=== PATIENT | male | born 1955 | race Caucasian/White ===

== ENCOUNTER 2019-12-12 20:38 | Emergency (ER) | payer OTHER, SELFPAY ==
[2019-12-12 20:41] VITALS: BP 153/80; PULSE 76; RESP 20; TEMP 36.4; O2SAT 93
--- NOTE | 2019-12-12 21:06 | ED_ITS ---
HPI - Extremity Problem General: Chief complaint: Extremity Injury, Upper Stated complaint: left arm injury Time Seen by Provider: 12/12/19 21:01 History of Present Illness: HPI Narrative: Patient is a 64-year-old male who comes to the ED with laceration to left forearm. Injury occurred just prior to arrival. Patient is currently on Xarelto. He was [place] in the [place] and a tree branch fell hitting his left forearm. It caused a laceration to the middle of left forearm. He applied pressure with a towel and was able to get bleeding to stop. He has full range of motion with his left shoulder, elbow wrist and fingers. He does describe having some pain when moving his fingers. Patient said his pain is manageable and does not want any pain meds while here in the ED. His last tetanus shot was within the past 5 years. Associated symptoms: Deny chest pain, fever(s) or rash Review of Systems Const: Denies: fever(s), chills or fatigue Eyes: Denies: change in vision or eye discomfort ENMT: Denies: throat pain, odynophagia, nasal discharge or nasal congestion Card: Denies: chest pain, palpitations, edema, swelling of feet/ankles, dyspnea on exertion or orthopnea Resp: Denies: dyspnea, productive cough or non-productive cough GI: Denies: abdominal pain, nausea, vomiting, diarrhea, constipation or hematochezia : Denies: flank pain, difficulty urinating, dysuria or hematuria Musc: Denies: neck pain, back pain or extremity swelling Skin/Breast: Reports: new lesions (laceration to left forearm); Denies: rash Neuro: Denies: headache(s), numbness in extremities or weakness in extremities Physical Exam Const: COMMON NORMALS: no acute distress, patient oriented x3, healthy appearing and alert GENERAL APPEARANCE: cooperative and comfortable HENMT: COMMON NORMALS: normocephalic HEAD & SCALP: normocephalic MOUTH: Normal oral and palatal mucosa present THROAT: posterior oropharynx normal and uvula midline Neck/C-Spine: COMMON NORMALS: supple GENERAL: Yes normal visual inspection Resp: COMMON NORMALS: normal respiratory effort, No retractions, No use of accessory muscles and clear to auscultation bilaterally AUSCULTATION: clear to auscultation bilaterally Cardio: COMMON NORMALS: regular rate, regular rhythm, S1 normal heart sound present, S2 normal heart sound present, No gallops present (Cardio), No clicks present (Cardio), No murmurs present (Cardio) and Peripheral pulses 2+ throughout RATE: regular rate RHYTHM: regular rhythm HEART SOUNDS: S1 normal heart sound present and S2 normal heart sound present PERIPHERAL PULSES: Peripheral pulses 2+ throughout GI: COMMON NORMALS: Normal to inspection, nondistended, normoactive bowel sounds present, Soft to palpation, non-tender and no masses PALPATION: Yes Soft to palpation : COMMON NORMALS: Yes no CVA tenderness BLADDER/KIDNEY EXAM: Yes no CVA tenderness Back/Pelvis: COMMON NORMALS: no CVA tenderness Extremity: COMMON NORMALS: full ROM GENERAL: Yes normal exam except as noted LEFT UPPER EXTREMITY: Yes lower arm Left lower arm: Yes inspection (Patient has a 3 cm V shaped laceration along with an abrasion on the dorsal aspect of the left forearm. No current bleeding seen), Yes palpation (Tender over laceration site.) and Yes neurovascular exam (Intact) Neuro: COMMON NORMALS: patient oriented x3 and moves all extremities SENSORIUM/ORIENTATION: Yes alert Skin: GENERAL SKIN EXAM: dry skin TRAUMA: laceration (3 cm V-shaped laceration with small superficial abrasion near laceration as well.) superficial, involves subcutaneous tissue, motor nerve function intact and sensation intact; not actively bleeding Procedures Laceration Laceration 1: Site: upper extremity (forearm) Side (If applicable): left Size (cm): 3 Description: irregular (V-shaped) and clean Depth: simple, single layer Local Anesthetic: lidocaine 1% and with epi Amount of anesthesia used (mL): 10 Pre-repair: wound explored (No foreign bodies or wood chips seen in laceration site.) and irrigated extensively (With normal saline and cleaned with CHG.) Skin layer closed with: nylon Size (cm): 4-0 Number of sutures: 7 Technique: simple, interrupted Course Reevaluation(s): Reevaluation #1: I discussed the x-ray findings with patient and told him about the radiopaque object in the forearm. Patient states that is a piece of glass and he has had that in his left forearm for years. He states that it does not cause him any problems. Time: 22:21 Vital Signs: Vital signs: Vital Signs Temperature 97.5 F L 07/29/20 20:41 Pulse Rate 60 12/12/19 22:54 Respiratory Rate 18 12/12/19 22:54 Blood Pressure 137/76 12/12/19 22:54 Pulse Oximetry 93 12/12/19 22:54 MDM - Extremity (Nontraumatic) MDM Narrative: Medical decision making narrative: Patient is a 64-year-old male who comes to the ED with a laceration to his left forearm. Exam showed 3 cm V shaped laceration on the left forearm. X-ray of left forearm showed no acute fractures, but did identify a small radiopaque object in the patient's forearm that was not near the laceration site. I told patient about findings of a foreign body seen he told me that he was aware of that and it is a piece of glass that has been in there for years. Laceration was irrigated extensively with normal saline and then lidocaine 1% with epi was used as a local. Laceration was then closed with 7 sutures (see procedure notes for details). Patient was given prescription for cephalexin for prophylactic. Follow-up with healthcare provider in 7 to 10 days to get sutures removed. Keep laceration site dry and bandage for the next 48 hours then clean and change bandage daily after that. I discussed infection signs at the laceration site with patient. Return to ED precautions given. Imaging Data^: Xray Ortho: Attestation: I personally reviewed and interpreted this imaging study as follows: My impression: Left forearm x-ray showed no acute fractures. There is a small radiopaque object on anterior side of the forearm but not located near laceration site. Possibly old foreign body related to recent injury. Discharge Plan Discharge Patient Disposition: Home Clinical Impression: Laceration Condition: Stable Prescriptions: New cephalexin 500 mg capsule 500 mg PO TID 4 Days Qty: 12 RF: 0 Discharge Orders: Discharge Order (Routine); Ordered 12/12/19 Ordered By: Stefano Garnett Referrals: Jay Cintron [Primary Care Provider] - Discharge Diet: Regular Discharge Activity: Increase activity as tolerated and Limit activity as instructed Patient Instructions: Suture Care (ED), Laceration (ED) Activity Restrictions/Additional Instructions: Take full course of antibiotics as prescribed. Keep laceration site clean and dry for the next 48 hours. Then after that you can clean and re-bandage daily. Watch for signs of infection such as redness, warmth, increased tenderness and puslike drainage. If you see the signs of infection return to the ED, urgent care or PCP for reevaluation. call your PCP to schedule a follow-up appointment for reevaluation in the next 7 to 10 days and to get sutures removed. Continue taking all home meds. Follow discharge plans as discussed. You can return to the ED if symptoms worsen. Discharge Date/Time: 12/12/19 23:02 Coding Level of Care Code ED Supervisor [employer] for Sylwia Bryson Exam Comprehensive
--- NOTE | 2019-12-12 21:14 | XRR_ITS ---
PROCEDURE INFORMATION: Exam: XR Left Forearm Exam date and time: 12/12/2019 9:39 PM Age: 64 years old Clinical indication: Injury or trauma; Injury history: Not specified; Initial encounter; Laceration; Arm, lower; Left; Additional info: Injury with laceration TECHNIQUE: Imaging protocol: XR Left forearm. Views: 2 views. COMPARISON: CT Up Extremity w LEFT [id number] 06/30/2018 3:08 PM FINDINGS: Bones/joints: No fracture. No dislocation. Soft tissues: There is a superficial soft tissue injury involving the dorsal/lateral mid forearm compatible with the history of a laceration. There is a 3 mm metallic foreign body in the more distal medial forearm which may be unrelated to the current injury and could be pre-existing. XR/XR forearm LT 2V [id number] IMPRESSION: 1. Soft tissue injury without osseous injury. 2. Radiopaque foreign body in the forearm soft tissue, potentially unrelated to the current injury.
--- NOTE | 2019-12-12 22:53 | PC.NURSE ---
BANDAGED LEFT ARM WITH TELFA AND 4X4'S WRAPPED WITH CHELSIE.
[2019-12-12 22:54] VITALS: BP 137/76; PULSE 60; RESP 18; O2SAT 93
[2019-12-12] MEDS: cephALEXin 500 mg Capsule PO (22:54)
== END 2019-12-12 23:02 | disposition home or self-care (01) ==
PROVIDERS: Emergency Provider Physician Assistant; PCP Family Medicine
DX: S51.812A Laceration without foreign body of left forearm, initial encounter (principal); W20.8XXA Other cause of strike by thrown, projected or falling object, initial encounter
CPT/HCPCS: 12002; 12345; 73090; 99281; 99283

== ENCOUNTER → 2019-12-28 14:19 | Outpatient (BNVA) | payer OTHER, SELFPAY | PROVIDERS: PCP Family Medicine; Visit Provider Nurse Practitioner | DX: R06.02 Shortness of breath (principal); J44.1 Chronic obstructive pulmonary disease with (acute) exacerbation; Z68.33 Body mass index [BMI] 33.0-33.9, adult; F17.211 Nicotine dependence, cigarettes, in remission; I51.7 Cardiomegaly; Z95.0 Presence of cardiac pacemaker | CPT/HCPCS: 71046 ==

== ENCOUNTER → 2020-01-03 14:00 | Outpatient (BNVA) | payer OTHER, SELFPAY | PROVIDERS: PCP Family Medicine; Visit Provider Nurse Practitioner Family | DX: Z11.59 Encounter for screening for other viral diseases (principal); J18.9 Pneumonia, unspecified organism; R06.02 Shortness of breath | CPT/HCPCS: 87635 ==

== ENCOUNTER 2020-07-18 13:17 | Outpatient (CLI) | payer OTHER, SELFPAY | END 2020-07-18 13:18 | disposition home or self-care (01) | LOC: WOUND 13:20 | PROVIDERS: PCP Family Medicine; Visit Provider Surgery | DX: E11.621 Type 2 diabetes mellitus with foot ulcer (principal); L97.522 Non-pressure chronic ulcer of other part of left foot with fat layer exposed | CPT/HCPCS: 11042; G0463; L3260 ==

== ENCOUNTER 2020-07-25 14:12 | Outpatient (CLI) | payer OTHER, SELFPAY | END 2020-07-25 14:13 | disposition home or self-care (01) | LOC: WOUND 14:13 | PROVIDERS: PCP Family Medicine; Visit Provider Surgery | DX: E11.621 Type 2 diabetes mellitus with foot ulcer (principal); L97.522 Non-pressure chronic ulcer of other part of left foot with fat layer exposed | CPT/HCPCS: 11042 ==

== ENCOUNTER 2020-07-25 15:30 | Outpatient (CLI) | payer OTHER, SELFPAY ==
--- NOTE | 2020-07-25 15:44 | XRR_ITS ---
PROCEDURE INFORMATION: Exam: XR Right Foot Exam date and time: 07/25/2020 3:45 PM Age: 64 years old Clinical indication: Condition or disease; Other: Right foot ulcer TECHNIQUE: Imaging protocol: XR Right foot. Views: 3 or more views. COMPARISON: No relevant prior studies available. FINDINGS: Bones/joints: Mild degenerative changes of the midfoot. No fracture or other acute osseous abnormality. Soft tissues: The soft tissues appear unremarkable. 10 mm linear wound dressing versus foreign body in the plantar soft tissues of the distal forefoot. This is demonstrated on the lateral image. No abnormal air in the soft tissues. XR/XR foot RT min 3V* [id number] IMPRESSION: 1. 10 mm linear wound dressing versus foreign body in the plantar soft tissues of the distal forefoot. This is demonstrated on the lateral image. 2. No acute osseous abnormality. No radiographic evidence of osteomyelitis.
== END 2020-07-25 15:31 | disposition home or self-care (01) ==
PROVIDERS: PCP Family Medicine; Visit Provider Surgery
DX: E11.621 Type 2 diabetes mellitus with foot ulcer (principal)
CPT/HCPCS: 73630

== ENCOUNTER 2020-08-01 08:03 | Outpatient (CLI) | payer OTHER, SELFPAY | END 2020-08-01 08:04 | disposition home or self-care (01) | LOC: WOUND 08:03 | PROVIDERS: PCP Family Medicine; Visit Provider Nurse Practitioner Family | DX: E11.621 Type 2 diabetes mellitus with foot ulcer (principal); L97.522 Non-pressure chronic ulcer of other part of left foot with fat layer exposed | CPT/HCPCS: 11042 ==

== ENCOUNTER 2020-08-07 08:47 | Outpatient (CLI) | payer OTHER, SELFPAY ==
--- NOTE | 2020-08-07 08:58 | USCV_ITS ---
Arnie Coombs Age: 65 Gender: M : 1955 Exam Date: 08/07/2020 09:06 Ordering Phys: Jay Real MD (Andy) ([email or web address]) Technologist: Charles Zapien Exam Location: [facility] [place] Indication: HISTORY: Lower extremity edema. PROCEDURES: Bilateral duplex Venous Insufficiency study of the Deep and Superficial systems was carried out according to normal protocol with the patient in supine positon for deep system and dependent position for the superficial system. FINDINGS: All deep veins demonstrated compressibility without evidence of intraluminal thrombus or increased echogenicity. Spectral analysis of Doppler signals demonstrates normal response to compression maneuvers indicating patency without obstruction. Reflux determinations were made with the patient in the dependent position, the weight being on the contralateral leg. Vein measurements and reflux times are listed below were applicable. No notable reflux was seen at this time. CONCLUSIONS No evidence of DVT in the above-mentioned identifiable veins. No significant venous reflux in the above-mentioned veins. The veins were of normal caliber bilaterally. Dr Siomara Laureano MD [facility] (Electronically Signed) Final Date: 08 August 2020 19:05 S
--- NOTE | 2020-08-07 08:58 | XR_ITS ---
WS: [id number] Exam: XR foot RT min 3V* [id number] Date/Time of Exam: 08/07/2020 8:58 AM Reason For Exam: TYPE 2 DM W/FOOT ULCER Comparison 07/25/2020. There is soft tissue edema of the great toe with skin ulcer seen along the plantar aspect. No bone de struction. No fracture of the right foot. No obvious soft tissue foreign bodies are seen. Minimal deg enerative changes. XR/XR foot RT min 3V* [id number] IMPRESSION: 1. No fracture or bone destruction. 2. Soft tissue edema of the great toe with skin ulcer seen along the plantar stovall rface of the great toe. No soft tissue gas seen.
== END 2020-08-07 08:48 | disposition home or self-care (01) ==
LOC: RAD 08:47
PROVIDERS: PCP Nurse Practitioner; Visit Provider Thoracic Surgery (Cardiothoracic Vascular Surgery)
DX: E11.621 Type 2 diabetes mellitus with foot ulcer (principal); R60.0 Localized edema
CPT/HCPCS: 73630; 93970

== ENCOUNTER 2020-08-08 08:04 | Outpatient (CLI) | payer OTHER, SELFPAY | END 2020-08-08 08:05 | disposition home or self-care (01) | LOC: WOUND 08:05 | PROVIDERS: PCP Nurse Practitioner; Visit Provider Surgery | DX: E11.621 Type 2 diabetes mellitus with foot ulcer (principal); L97.522 Non-pressure chronic ulcer of other part of left foot with fat layer exposed | CPT/HCPCS: 11042 ==

== ENCOUNTER 2020-08-13 14:34 | Outpatient (CLI) | payer OTHER, SELFPAY | END 2020-08-13 14:35 | disposition home or self-care (01) | LOC: WOUND 14:35 | PROVIDERS: PCP Nurse Practitioner; Visit Provider Thoracic Surgery (Cardiothoracic Vascular Surgery) | DX: E11.621 Type 2 diabetes mellitus with foot ulcer (principal); L97.522 Non-pressure chronic ulcer of other part of left foot with fat layer exposed | CPT/HCPCS: 11042 ==

== ENCOUNTER 2020-08-15 14:52 | Outpatient (CLI) | payer OTHER, SELFPAY | END 2020-08-15 14:53 | disposition home or self-care (01) | LOC: WOUND 14:53 | PROVIDERS: PCP Nurse Practitioner; Visit Provider Surgery | DX: E11.621 Type 2 diabetes mellitus with foot ulcer (principal); L97.522 Non-pressure chronic ulcer of other part of left foot with fat layer exposed | CPT/HCPCS: 29445 ==

== ENCOUNTER 2020-08-19 08:17 | Outpatient (CLI) | payer OTHER, SELFPAY ==
--- NOTE | 2020-08-19 08:57 | USCV_ITS ---
Arnie Coombs Age: 65 Gender: M : 1955 Exam Date: 08/19/2020 08:51 Ordering Phys: Jay Real MD (Andy) ([email or web address] Technologist: Kati Carlson Exam Location: [facility] [place] Indication: RIGHT TOE ULCER RIGHT LEFT Brachial 146.00 mmHg Brachial 147.00 mmHg Pressure (mmHg) Waveform Pressure (mmHg) Waveform 124.00 High Thigh 145.00 107.00 Below Knee 137.00 148.00 HEALTH CARE SPECIALIST 164.00 152.00 DPA 143.00 1.03 Ankle/Brachial Index 0.97 139.00 Pre-Exercise Toe Pressure 140.00 0.95 Pre-Exercise Toe/Brachial Index 0.95 FINDINGS Normal resting ABIs bilaterally Normal resting TBIs bilaterally Normal PVR waveforms bilaterally CONCLUSIONS No evidence of any significant arterial obstruction, based on the above findings. Dr Siomara Laureano MD [facility] (Electronically Signed) Final Date: 19 August 2020 20:18 S
== END 2020-08-19 08:18 | disposition home or self-care (01) ==
LOC: RAD 08:23
PROVIDERS: PCP Nurse Practitioner; Visit Provider Thoracic Surgery (Cardiothoracic Vascular Surgery)
DX: E11.621 Type 2 diabetes mellitus with foot ulcer (principal)
CPT/HCPCS: 93923

== ENCOUNTER 2020-08-19 10:17 | Outpatient (CLI) | payer OTHER, SELFPAY | END 2020-08-19 10:18 | disposition home or self-care (01) | LOC: WOUND 10:17 | PROVIDERS: PCP Nurse Practitioner; Visit Provider Thoracic Surgery (Cardiothoracic Vascular Surgery) | DX: E11.621 Type 2 diabetes mellitus with foot ulcer (principal); L97.522 Non-pressure chronic ulcer of other part of left foot with fat layer exposed | CPT/HCPCS: 11042 ==

== ENCOUNTER 2020-08-26 08:18 | Outpatient (CLI) | payer OTHER, SELFPAY | END 2020-08-26 08:19 | disposition home or self-care (01) | LOC: WOUND 08:19 | PROVIDERS: PCP Nurse Practitioner; Visit Provider Thoracic Surgery (Cardiothoracic Vascular Surgery) | DX: E11.621 Type 2 diabetes mellitus with foot ulcer (principal); L97.522 Non-pressure chronic ulcer of other part of left foot with fat layer exposed | CPT/HCPCS: 11042 ==

== ENCOUNTER 2020-09-02 09:12 | Outpatient (CLI) | payer OTHER, SELFPAY | END 2020-09-02 09:13 | disposition home or self-care (01) | LOC: WOUND 09:12 | PROVIDERS: PCP Nurse Practitioner; Visit Provider Thoracic Surgery (Cardiothoracic Vascular Surgery) | DX: E11.621 Type 2 diabetes mellitus with foot ulcer (principal); L97.522 Non-pressure chronic ulcer of other part of left foot with fat layer exposed | CPT/HCPCS: 11042 ==

== ENCOUNTER 2020-09-09 08:18 | Outpatient (CLI) | payer OTHER, SELFPAY | END 2020-09-09 08:19 | disposition home or self-care (01) | LOC: WOUND 08:20 | PROVIDERS: PCP Nurse Practitioner; Visit Provider Thoracic Surgery (Cardiothoracic Vascular Surgery) | DX: E11.621 Type 2 diabetes mellitus with foot ulcer (principal); L97.512 Non-pressure chronic ulcer of other part of right foot with fat layer exposed | CPT/HCPCS: 11042 ==

== ENCOUNTER 2020-09-16 08:16 | Outpatient (CLI) | payer OTHER, SELFPAY | END 2020-09-16 08:17 | disposition home or self-care (01) | LOC: WOUND 08:20 | PROVIDERS: PCP Nurse Practitioner; Visit Provider Thoracic Surgery (Cardiothoracic Vascular Surgery) | DX: E11.621 Type 2 diabetes mellitus with foot ulcer (principal); L97.519 Non-pressure chronic ulcer of other part of right foot with unspecified severity; L97.522 Non-pressure chronic ulcer of other part of left foot with fat layer exposed | CPT/HCPCS: 97597 ==

== ENCOUNTER 2020-09-23 07:52 | Outpatient (CLI) | payer OTHER, SELFPAY | END 2020-09-23 07:53 | disposition home or self-care (01) | LOC: WOUND 07:53 | PROVIDERS: PCP Nurse Practitioner; Visit Provider Thoracic Surgery (Cardiothoracic Vascular Surgery) | DX: E11.621 Type 2 diabetes mellitus with foot ulcer (principal); L97.522 Non-pressure chronic ulcer of other part of left foot with fat layer exposed | CPT/HCPCS: 11042 ==

== ENCOUNTER 2020-09-30 08:08 | Outpatient (CLI) | payer OTHER, SELFPAY | END 2020-09-30 08:09 | disposition home or self-care (01) | LOC: WOUND 08:09 | PROVIDERS: PCP Nurse Practitioner; Visit Provider Thoracic Surgery (Cardiothoracic Vascular Surgery) | DX: E11.621 Type 2 diabetes mellitus with foot ulcer (principal); L97.512 Non-pressure chronic ulcer of other part of right foot with fat layer exposed; L97.421 Non-pressure chronic ulcer of left heel and midfoot limited to breakdown of skin | CPT/HCPCS: 11042 ==

== ENCOUNTER 2020-10-03 07:47 | Outpatient (CLI) | payer OTHER, SELFPAY | END 2020-10-03 07:48 | disposition home or self-care (01) | LOC: WOUND 07:48 | PROVIDERS: PCP Nurse Practitioner; Visit Provider Thoracic Surgery (Cardiothoracic Vascular Surgery) | DX: E11.621 Type 2 diabetes mellitus with foot ulcer (principal); L97.512 Non-pressure chronic ulcer of other part of right foot with fat layer exposed; L97.521 Non-pressure chronic ulcer of other part of left foot limited to breakdown of skin | CPT/HCPCS: 11042; 97597 ==

== ENCOUNTER 2020-10-08 14:44 | Outpatient (CLI) | payer OTHER, SELFPAY | END 2020-10-08 14:45 | disposition home or self-care (01) | LOC: WOUND 14:45 | PROVIDERS: PCP Nurse Practitioner; Visit Provider Nurse Practitioner Family | DX: E11.621 Type 2 diabetes mellitus with foot ulcer (principal); L97.512 Non-pressure chronic ulcer of other part of right foot with fat layer exposed; L97.422 Non-pressure chronic ulcer of left heel and midfoot with fat layer exposed | CPT/HCPCS: 11042 ==

== ENCOUNTER 2020-10-15 08:01 | Outpatient (CLI) | payer OTHER, SELFPAY | END 2020-10-15 08:02 | disposition home or self-care (01) | LOC: WOUND 08:02 | PROVIDERS: PCP Nurse Practitioner; Visit Provider Thoracic Surgery (Cardiothoracic Vascular Surgery) | DX: E11.621 Type 2 diabetes mellitus with foot ulcer (principal); L97.512 Non-pressure chronic ulcer of other part of right foot with fat layer exposed | CPT/HCPCS: 11042; 87070; 87077; 87176; 87186; 87205 ==

== ENCOUNTER 2020-10-15 08:57 | Outpatient (CLI) | payer OTHER, SELFPAY ==
--- NOTE | 2020-10-15 09:22 | XR_ITS ---
WS: [id number] Right foot, 3 views, 10/15/2020 Clinical Data: TYPE II DM W/FOOT ULCER/? OSTEOMYELITIS Comparison: Right foot, 08/07/2020. Findings: No fractures or dislocations are seen. No bone destruction or erosion is noted. The joint spaces are normal. There is minimal soft tissue swelling over the medial aspect of the right first IP joint. The right great toe shows no erosion or evidence of osteomyelitis. There are clips in the medial dist al soft tissues of the leg. There is a small plantar spur. XR/XR foot RT min 3V* [id number] Impression: Negative right foot.
== END 2020-10-15 08:58 | disposition home or self-care (01) ==
PROVIDERS: PCP Nurse Practitioner; Visit Provider Thoracic Surgery (Cardiothoracic Vascular Surgery)
DX: E11.621 Type 2 diabetes mellitus with foot ulcer (principal)
CPT/HCPCS: 73630

== ENCOUNTER 2020-10-22 07:52 | Outpatient (CLI) | payer OTHER, SELFPAY | END 2020-10-22 07:53 | disposition home or self-care (01) | LOC: WOUND 07:52 | PROVIDERS: PCP Nurse Practitioner; Visit Provider Thoracic Surgery (Cardiothoracic Vascular Surgery) | DX: E11.621 Type 2 diabetes mellitus with foot ulcer (principal); L97.512 Non-pressure chronic ulcer of other part of right foot with fat layer exposed | CPT/HCPCS: 11042 ==

== ENCOUNTER 2020-10-29 07:53 | Outpatient (CLI) | payer OTHER, SELFPAY | END 2020-10-29 07:54 | disposition home or self-care (01) | LOC: WOUND 07:54 | PROVIDERS: PCP Nurse Practitioner; Visit Provider Thoracic Surgery (Cardiothoracic Vascular Surgery) | DX: E11.621 Type 2 diabetes mellitus with foot ulcer (principal); L97.512 Non-pressure chronic ulcer of other part of right foot with fat layer exposed | CPT/HCPCS: 11042 ==

== ENCOUNTER 2020-10-29 09:36 | Emergency (ER) | payer OTHER, SELFPAY ==
[2020-10-29 09:47] VITALS: BP 115/76; PULSE 64; RESP 18; TEMP 36.4; O2SAT 93; BMI 35.4
--- NOTE | 2020-10-29 10:12 | USCV_ITS ---
Arnie Coombs Age: 65 Gender: M : 1955 Exam Date: 10/29/2020 10:40 Ordering Phys: Stefano Garnett Technologist: Ilsa Mackay Exam Location: [facility] [place] Indication: lower extremity swelling HISTORY: Lower extremity swelling. PROCEDURES: Venous duplex imaging was performed in only the left lower extremity. The following venous structures were evaluated: common femoral vein, profunda vein, proximal portion of the greater saphenous vein, superficial femoral vein, and the popliteal vein. In addition, the posterior tibial and peroneal trunk were evaluated. FINDINGS: Normal 2-D Doppler and augmentation and compressibility throughout the lower extremity venous structures. Additional imaging through the proximal calf veins also reveals no thrombus. Limited evaluation of the greater saphenous vein is patent with no thrombus.. CONCLUSIONS No evidence of left lower extremity DVT. Rafael Azevedo MD (Electronically Signed) Final Date: 30 October 2020 09:48 S
--- NOTE | 2020-10-29 10:12 | W.ED.EXTPRO ---
HPI - Extremity Problem General: Chief complaint: Extremity Problem,Nontraumatic Stated complaint: L leg discolored, swollen, knot Time Seen by Provider: 10/29/20 09:55 History of Present Illness: HPI Narrative: Patient is a 65-year-old male comes to the ED with left lower extremity pain and swelling. Patient denies any known injury or trauma to cause pain and swelling. He has seen a provider twice for this complaint and he was diagnosed with cellulitis and first put on Bactrim and then was put on cephalexin. [facility]. Patient says he does take aspirin and Xarelto currently. He describes the leg pain is achy and he is able to walk on left leg with no increased pain. Denies any chest pain, shortness of breath, cough or hemoptysis. Associated symptoms: Reports rash (Erythema, tenderness to the left lower leg.); Deny chest pain or fever(s) Review of Systems Const: Denies: fever(s), chills or fatigue Eyes: Denies: change in vision or eye discomfort ENMT: Denies: throat pain, odynophagia, nasal discharge or nasal congestion Card: Denies: chest pain, palpitations, edema, swelling of feet/ankles, dyspnea on exertion or orthopnea Resp: Denies: dyspnea, productive cough or non-productive cough GI: Denies: abdominal pain, nausea, vomiting, diarrhea, constipation or hematochezia : Denies: flank pain, difficulty urinating, dysuria or hematuria Musc: Reports: extremity pain (Left lower extremity swelling and pain.); Denies: neck pain, back pain or extremity swelling Skin/Breast: Reports: rash (Erythema, tenderness to the left lower leg.); Denies: new lesions Neuro: Denies: headache(s), numbness in extremities or weakness in extremities PFS ED PFSH: Social History Smoking and tobacco status: former smoker Physical Exam Const: COMMON NORMALS: no acute distress, patient oriented x3 and alert GENERAL APPEARANCE: cooperative and comfortable HENMT: COMMON NORMALS: normocephalic HEAD & SCALP: normocephalic MOUTH: Normal oral and palatal mucosa present THROAT: posterior oropharynx normal and uvula midline Neck/C-Spine: COMMON NORMALS: supple GENERAL: Yes normal visual inspection Resp: COMMON NORMALS: normal respiratory effort, No retractions, No use of accessory muscles and clear to auscultation bilaterally AUSCULTATION: clear to auscultation bilaterally Cardio: COMMON NORMALS: regular rate, regular rhythm, S1 normal heart sound present, S2 normal heart sound present, No gallops present (Cardio), No clicks present (Cardio), No murmurs present (Cardio) and Peripheral pulses 2+ throughout RATE: regular rate RHYTHM: regular rhythm HEART SOUNDS: S1 normal heart sound present and S2 normal heart sound present PERIPHERAL PULSES: Peripheral pulses 2+ throughout GI: COMMON NORMALS: Normal to inspection, nondistended, normoactive bowel sounds present, Soft to palpation, non-tender and no masses PALPATION: Yes Soft to palpation : COMMON NORMALS: Yes no CVA tenderness BLADDER/KIDNEY EXAM: Yes no CVA tenderness Back/Pelvis: COMMON NORMALS: no CVA tenderness Extremity: NARRATIVE EXTREMITY EXAM: Patient is left lower extremity has mild swelling and erythema around the ankle and lower leg. Mild tenderness on palpation of the lower leg. Pedal pulse 2+. GENERAL: No calf tenderness Neuro: COMMON NORMALS: patient oriented x3 and moves all extremities SENSORIUM/ORIENTATION: Yes alert Skin: NARRATIVE SKIN EXAM: Left lower extremity?lower leg is an erythemic rash with some mild tenderness. No warmth upon palpation. GENERAL SKIN EXAM: dry skin Course Vital Signs: Vital signs: Vital Signs Temperature 97.6 F 10/29/20 09:47 Pulse Rate 64 10/29/20 11:33 Respiratory Rate 20 H 10/29/20 11:33 Blood Pressure 115/76 10/29/20 09:47 Pulse Oximetry 92 10/29/20 11:33 MDM - Extremity (Nontraumatic) MDM Narrative: Medical decision making narrative: Patient is 65-year-old male comes to the ED with left lower extremity swelling and pain. [facility]. He also has an erythemic rash on left lower leg with some mild tenderness. No calf tenderness. Denies any history of blood clots. Denies chest pain, hemoptysis, cough or shortness of breath. Ultrasound of left lower extremity showed no DVTs or blood clots. Patient was diagnosed with pain and swelling of left lower extremity discharged home. He was told to rest ice and elevate left leg. Patient was previously diagnosed with cellulitis on that leg and is currently taking cephalexin I told him to continue taking full course of medication. Return to ED precautions given. Follow-up with PCP in 7 to 10 days reevaluation. Patient understood agree with plan. Imaging Data^: US Vascular: Attestation: I personally reviewed and interpreted this imaging study as follows: Radiologist's impression: Ultrasound venous duplex of left lower extremity?prelim report?no DVTs or blood clots seen. Discharge Plan Discharge Patient Disposition: Home Clinical Impression: Pain and swelling of left lower extremity Condition: Stable Prescriptions: No Action Unable to Assess RF: 0 Discharge Orders: Discharge ED (Routine); Ordered 10/29/20 Ordered By: Stefano Garnett Referrals: Carmen Osman FNP [Primary Care Provider] - Discharge Diet: Regular Discharge Activity: Increase activity as tolerated Activity Restrictions/Additional Instructions: Follow-up with medical provider as directed in 7 to 10 days for reevaluation. Continue taking all home medications as prescribed. Rest, ice and elevate left leg and take [id number] Tylenol for pain. Return to the ER or your medical provider if condition worsens. Please read and understand discharge instructions. Thank you for choosing [facility] for your healthcare needs today. Please realize this is an emergency room and that we are providing you with a medical screening exam and this may not be complete and all inclusive of all the testing and or work up that you may need to determine your ailment or severity of your illness. It is very important that you follow up as instructed or that you return to the Emergency Department should you have concerns or if your condition changes or worsens in any way. Coding Level of Care Code ED Emergency Management System Director for Sylwia Bryson Exam Comprehensive
[2020-10-29 11:32] VITALS: PULSE 64; RESP 20; O2SAT 92
[2020-10-29 11:33] VITALS: PULSE 64; RESP 20; O2SAT 92
== END 2020-10-29 11:30 | disposition home or self-care (01) ==
PROVIDERS: Emergency Provider Physician Assistant; PCP Nurse Practitioner
DX: M79.605 Pain in left leg (principal); M79.89 Other specified soft tissue disorders; Z87.891 Personal history of nicotine dependence
CPT/HCPCS: 93971; 99283

== ENCOUNTER 2020-11-05 07:51 | Outpatient (CLI) | payer OTHER, SELFPAY | END 2020-11-05 07:52 | disposition home or self-care (01) | LOC: WOUND 07:52 | PROVIDERS: PCP Nurse Practitioner; Visit Provider Thoracic Surgery (Cardiothoracic Vascular Surgery) | DX: E11.621 Type 2 diabetes mellitus with foot ulcer (principal); L97.512 Non-pressure chronic ulcer of other part of right foot with fat layer exposed | CPT/HCPCS: 11042 ==

== ENCOUNTER 2020-11-12 08:05 | Outpatient (CLI) | payer OTHER, SELFPAY | END 2020-11-12 08:06 | disposition home or self-care (01) | LOC: WOUND 08:07 | PROVIDERS: PCP Nurse Practitioner; Visit Provider Thoracic Surgery (Cardiothoracic Vascular Surgery) | DX: E11.621 Type 2 diabetes mellitus with foot ulcer (principal); L97.512 Non-pressure chronic ulcer of other part of right foot with fat layer exposed | CPT/HCPCS: 11042 ==

== ENCOUNTER 2020-11-19 08:05 | Outpatient (CLI) | payer OTHER, SELFPAY | END 2020-11-19 08:06 | disposition home or self-care (01) | LOC: WOUND 08:05 | PROVIDERS: PCP Nurse Practitioner; Visit Provider Nurse Practitioner Family | DX: E11.621 Type 2 diabetes mellitus with foot ulcer (principal); L97.512 Non-pressure chronic ulcer of other part of right foot with fat layer exposed | CPT/HCPCS: 11042 ==

== ENCOUNTER 2020-11-21 10:48 | Outpatient (CLI) | payer OTHER, SELFPAY ==
--- NOTE | 2020-11-21 | CT_ITS ---
WS: [id number] CT THORACIC SPINE TECHNIQUE: Noncontrast CT of the thoracic spine with coronal and sagittal reformatted images. CLINICAL INFORMATION: DIZZINESS COMPARISON: None. DLP: 1507.[address] scans at [facility] use at least one of these dose optimization techniques: automat ed exposure control; mA and/or kV adjustment per patient size (includes targeted exams where dose is matched to clinical indication); or iterative reconstruction. FINDINGS: Mild thoracic curve. Thoracic kyphosis. Prior postoperative changes in the lower cervical spine with ACDF. No acute compression fractures. No central canal stenosis. Disc space heights and vertebral bod y heights well-preserved. Mild facet arthropathy lower thoracic spine. Slight atelectasis in the lung bases. Aortic calcification. A few prominent peribronchial lymph nodes partially visualized measuring up to 12 mm. This can be further evaluated with chest CT. CT/CT thoracic spin wo con* [id number] IMPRESSION: 1. Mild thoracic curve. Mild thoracic kyphosis. 2. No acute compression fractures. Disc space heights and vertebral body heigh ts well-preserved. 3. No significant central canal stenosis. 4. Partially visualized ACDF cervical spine at C6-C7. 5. Prominent partially visualized peribronchial lymph nodes. This can be furth er evaluated chest CT.
== END 2020-11-21 10:49 | disposition home or self-care (01) ==
LOC: RADWPI 10:49
PROVIDERS: PCP Nurse Practitioner; Visit Provider Nurse Practitioner
DX: M54.6 Pain in thoracic spine (principal); R42 Dizziness and giddiness; M40.294 Other kyphosis, thoracic region
CPT/HCPCS: 72128

== ENCOUNTER 2020-12-03 07:50 | Outpatient (CLI) | payer OTHER, SELFPAY | END 2020-12-03 07:51 | disposition home or self-care (01) | LOC: WOUND 07:51 | PROVIDERS: PCP Nurse Practitioner; Visit Provider Thoracic Surgery (Cardiothoracic Vascular Surgery) | DX: E11.621 Type 2 diabetes mellitus with foot ulcer (principal); L97.512 Non-pressure chronic ulcer of other part of right foot with fat layer exposed | CPT/HCPCS: 11042 ==

== ENCOUNTER 2020-12-04 12:48 | Emergency (ER) | payer OTHER, SELFPAY ==
[2020-12-04 13:12] VITALS: BP 131/80; PULSE 69; RESP 19; TEMP 37.4; O2SAT 94; BMI 34.0
--- NOTE | 2020-12-04 13:39 | W.ED.EXTPRO ---
HPI - Extremity Problem General: Chief complaint: Extremity Injury, Upper Stated complaint: LUE Injury Time Seen by Provider: 12/04/20 13:37 History of Present Illness: HPI Narrative: Patient is a 65-year-old male comes to the ED with a laceration to left hand. Patient says that he was mowing his yard and a rock flew up and hit him in his left hand causing a cut. Patient is on blood thinners. He is up-to-date on his tetanus. Associated symptoms: Deny chest pain, fever(s) or rash Review of Systems Const: Denies: fever(s), chills or fatigue Eyes: Denies: change in vision or eye discomfort ENMT: Denies: throat pain, odynophagia, nasal discharge or nasal congestion Card: Denies: chest pain, palpitations, edema, swelling of feet/ankles, dyspnea on exertion or orthopnea Resp: Denies: dyspnea, productive cough or non-productive cough GI: Denies: abdominal pain, nausea, vomiting, diarrhea, constipation or hematochezia : Denies: flank pain, difficulty urinating, dysuria or hematuria Musc: Denies: neck pain, back pain or extremity swelling Skin/Breast: Reports: new lesions (laceration to left hand); Denies: rash Neuro: Denies: headache(s), numbness in extremities or weakness in extremities PFS ED PFSH: Social History Smoking and tobacco status: former smoker Physical Exam Const: COMMON NORMALS: no acute distress, patient oriented x3 and alert GENERAL APPEARANCE: cooperative and comfortable HENMT: COMMON NORMALS: normocephalic HEAD & SCALP: normocephalic MOUTH: Normal oral and palatal mucosa present THROAT: posterior oropharynx normal and uvula midline Neck/C-Spine: COMMON NORMALS: supple GENERAL: Yes normal visual inspection Resp: COMMON NORMALS: normal respiratory effort, No retractions, No use of accessory muscles and clear to auscultation bilaterally AUSCULTATION: clear to auscultation bilaterally Cardio: COMMON NORMALS: regular rate, regular rhythm, S1 normal heart sound present, S2 normal heart sound present, No gallops present (Cardio), No clicks present (Cardio), No murmurs present (Cardio) and Peripheral pulses 2+ throughout RATE: regular rate RHYTHM: regular rhythm HEART SOUNDS: S1 normal heart sound present and S2 normal heart sound present PERIPHERAL PULSES: Peripheral pulses 2+ throughout GI: COMMON NORMALS: Normal to inspection, nondistended, normoactive bowel sounds present, Soft to palpation, non-tender and no masses PALPATION: Yes Soft to palpation : COMMON NORMALS: Yes no CVA tenderness BLADDER/KIDNEY EXAM: Yes no CVA tenderness Back/Pelvis: COMMON NORMALS: no CVA tenderness Extremity: NARRATIVE EXTREMITY EXAM: Left hand?1 cm superficial laceration on dorsal aspect of base of thumb. No contaminants seen. GENERAL: Yes normal exam except as noted Neuro: COMMON NORMALS: patient oriented x3 and moves all extremities SENSORIUM/ORIENTATION: Yes alert Skin: GENERAL SKIN EXAM: dry skin Procedures Laceration Laceration 1: Site: hand (base of thumb) Side (If applicable): left Size (cm): 1 Description: linear and clean Depth: simple, single layer Local Anesthetic: lidocaine 1% and with epi Amount of anesthesia used (mL): 10 Pre-repair: irrigated extensively (With normal saline and skin cleaned with soap.) Skin layer closed with: nylon Size (cm): 4-0 Number of sutures: 4 Technique: simple, interrupted Course Vital Signs: Vital signs: Vital Signs Temperature 99.3 F 12/04/20 13:12 Pulse Rate 69 12/04/20 13:12 Respiratory Rate 19 H 12/04/20 13:12 Blood Pressure 131/80 12/04/20 13:12 Pulse Oximetry 94 12/04/20 13:12 MDM - Extremity (Nontraumatic) MDM Narrative: Medical decision making narrative: Patient is a 65-year-old male comes to the ED with a laceration to left hand. X-ray of left hand showed no acute fractures or foreign body seen. Laceration site was irrigated extensively with normal saline. 1% lidocaine with epi used as local. 4 sutures were placed to close up laceration. Patient was instructed on how to care for sutures. He was told to have sutures removed in 7 to 10 days reevaluation. He was discharged home with a prescription for cephalexin. Patient understood and agreed with plan. Imaging Data^: Xray Ortho: Attestation: I personally reviewed and interpreted this imaging study as follows: Radiologist's impression: [address] [address] XRay Report Signed Patient: Arnie Coombs Unit #: [id number] : 1955 Age/Sex: 65 / M ADM Date: 12/04/20 Loc: ER Room/Bed: Attending Dr: Ordering Provider/Ordering MD: Stefano Garnett Date of Service: 12/04/20 Procedure(s): XR hand LT min 3V* [id number] Accession Number(s): [id number] Report Number: [id number] WS: [id number] Left hand, 3 views, 12/04/2020 Clinical Data: left hand injury.-laceration to base of thumb Comparison: None. Findings: No new fractures or dislocations are seen. The soft tissues are unremarkable. The joint spaces are normal There is an oblique line across the middle of the left fifth metacarpal which is probably an old fracture. There is a bandage encircling the left thumb. There is osteoarthritic change at the base of the left first metacarpal. XR/XR hand LT min 3V* [id number] Impression: 1. Negative for new fracture. 2. Probable old fracture of the midshaft left fifth metacarpal. Dictated By: Ciara Real MD Signed By: Ciara Real MD Signed Date/Time: 12/04/201430 DD/ 28 Discharge Plan Discharge Patient Disposition: Home Clinical Impression: Hand laceration Qualifiers: Encounter type: initial encounter Foreign body presence: without foreign body Laterality: left Qualified Code(s): S61.412A - Laceration without foreign body of left hand, initial encounter Condition: Stable Prescriptions: New cephalexin 500 mg capsule 500 mg PO Q6H 4 Days Qty: 16 RF: 0 No Action Unable to Assess RF: 0 Discharge Orders: Discharge ED (Routine); Ordered 12/04/20 Ordered By: Stefano Garnett Referrals: Carmen Osman FNP [Primary Care Provider] - Discharge Diet: Regular Discharge Activity: Limit activity as instructed Patient Instructions: Suture Care (ED), Laceration (ED) Activity Restrictions/Additional Instructions: Take full course of antibiotics as prescribed. Keep laceration site clean and dry for the next 48 hours. Then after that you can clean and re-bandage daily. Watch for signs of infection such as redness, warmth, increased tenderness and puslike drainage. If you see the signs of infection return to the ED, urgent care or PCP for reevaluation. call your PCP to schedule a follow-up appointment for reevaluation and suture removal in about 7-10 days. Continue taking all home meds. Follow discharge plans as discussed. You can return to the ED if symptoms worsen. Coding Level of Care Code ED Manager Portable for Sylwia Bryson Exam Comprehensive
--- NOTE | 2020-12-04 13:45 | XR_ITS ---
WS: [id number] Left hand, 3 views, 12/04/2020 Clinical Data: left hand injury.-laceration to base of thumb Comparison: None. Findings: No new fractures or dislocations are seen. The soft tissues are unremarkable. The joint spaces are no rmal There is an oblique line across the middle of the left fifth metacarpal which is probably an old frac ture. There is a bandage encircling the left thumb. There is osteoarthritic change at the base of the left first metacarpal. XR/XR hand LT min 3V* [id number] Impression: 1. Negative for new fracture. 2. Probable old fracture of the midshaft left fifth metacarpal.
--- NOTE | 2020-12-04 15:00 | PC.NURSE ---
bandage applied to left hand with tegaderm, kerlix, and coban
== END 2020-12-04 15:00 | disposition home or self-care (01) ==
PROVIDERS: Emergency Provider Physician Assistant; PCP Nurse Practitioner
DX: S61.412A Laceration without foreign body of left hand, initial encounter (principal); Z87.891 Personal history of nicotine dependence; W26.8XXA Contact with other sharp object(s), not elsewhere classified, initial encounter; Y93.89 Activity, other specified; Y92.096 Garden or yard of other non-institutional residence as the place of occurrence of the external cause
CPT/HCPCS: 12001; 73130; 99283

== ENCOUNTER 2020-12-09 13:04 | Outpatient (CLI) | payer OTHER, SELFPAY | END 2020-12-09 13:05 | disposition home or self-care (01) | LOC: WOUND 13:05 | PROVIDERS: PCP Nurse Practitioner; Visit Provider Nurse Practitioner Family | DX: E11.621 Type 2 diabetes mellitus with foot ulcer (principal); L97.512 Non-pressure chronic ulcer of other part of right foot with fat layer exposed | CPT/HCPCS: 11042 ==

== ENCOUNTER 2020-12-16 09:22 | Outpatient (CLI) | payer OTHER, SELFPAY | END 2020-12-16 09:23 | disposition home or self-care (01) | LOC: WOUND 09:25 | PROVIDERS: PCP Nurse Practitioner; Visit Provider Thoracic Surgery (Cardiothoracic Vascular Surgery) | DX: E11.621 Type 2 diabetes mellitus with foot ulcer (principal); L97.512 Non-pressure chronic ulcer of other part of right foot with fat layer exposed; F17.210 Nicotine dependence, cigarettes, uncomplicated | CPT/HCPCS: 11042 ==

== ENCOUNTER 2020-12-30 09:23 | Outpatient (CLI) | payer OTHER, SELFPAY | END 2020-12-30 09:24 | disposition home or self-care (01) | LOC: WOUND 09:27 | PROVIDERS: PCP Nurse Practitioner; Visit Provider Thoracic Surgery (Cardiothoracic Vascular Surgery) | DX: E11.621 Type 2 diabetes mellitus with foot ulcer (principal); L97.512 Non-pressure chronic ulcer of other part of right foot with fat layer exposed; F17.210 Nicotine dependence, cigarettes, uncomplicated | CPT/HCPCS: 11042 ==

== ENCOUNTER 2020-12-30 11:04 | Outpatient (CLI) | payer OTHER, SELFPAY ==
--- NOTE | 2020-12-30 11:21 | XRR_ITS ---
PROCEDURE INFORMATION: Exam: XR Right Foot Exam date and time: 12/30/2020 11:21 AM Age: 65 years old Clinical indication: Condition or disease; Other: Ulcer; Additional info: Foot ulcer right great toe TECHNIQUE: Imaging protocol: XR Right foot. Views: 3 or more views. Total images: 3 COMPARISON: CR XR foot RT min 3V* [id number] 10/15/2020 9:32 AM FINDINGS: Bones/joints: No acute fracture nor subluxation. No osseous erosion nor periosteal reaction. Soft tissues: Soft tissue defect noted distal aspect of the right great toe. Vasculature: Vascular clips noted in the soft tissues medial to the right tibia. XR/XR foot RT min 3V* [id number] IMPRESSION: 1. No acute osseous pathology. 2. Soft tissue defect noted distal aspect of the right great toe.
== END 2020-12-30 11:05 | disposition home or self-care (01) ==
LOC: RAD 11:13
PROVIDERS: PCP Nurse Practitioner; Visit Provider Thoracic Surgery (Cardiothoracic Vascular Surgery)
DX: E11.621 Type 2 diabetes mellitus with foot ulcer (principal)
CPT/HCPCS: 73630

== ENCOUNTER 2021-01-06 10:25 | Outpatient (CLI) | payer OTHER, SELFPAY | END 2021-01-06 10:26 | disposition home or self-care (01) | LOC: WOUND 10:26 | PROVIDERS: PCP Nurse Practitioner; Visit Provider Nurse Practitioner Family | DX: I96 Gangrene, not elsewhere classified (principal); E11.621 Type 2 diabetes mellitus with foot ulcer; L97.512 Non-pressure chronic ulcer of other part of right foot with fat layer exposed; F17.210 Nicotine dependence, cigarettes, uncomplicated | CPT/HCPCS: 11042 ==

== ENCOUNTER → 2021-01-13 07:48 | Day surgery (SDC) | payer OTHER, SELFPAY ==
--- NOTE | 2021-01-13 08:11 | XR_ITS ---
WS: [id number] PORTABLE CHEST HISTORY: PICC placement COMPARISON: None available. Left-sided PICC line is present with tip terminating in the proximal SVC. Prior CABG. Dual lead LEFT subclavian cardiac pacer. Mild interstitial thickening throughout both lungs. No pleural effusion or pneumothorax. Cardiac size: Moderately enlarged cardiac silhouette. Mediastinum/Aorta: Mild atherosclerosis aorta. No osseous abnormality seen. XR/XR chest 1V portable [id number] IMPRESSION: 1. Left-sided PICC line terminates in the proximal SVC. 2. Marked cardiomegaly and prior CABG. 3. Mild diffuse interstitial thickening.
--- NOTE | 2021-01-13 09:50 | PC.NURSE ---
PICC LEFT arm placed and ready for use.
[2021-01-13 10:18] LABS: Anion Gap 10.8 (5-19); Blood Urea Nitrogen 14 mg/dL (8-23); Calcium 8.9 mg/dL (8.5-10.5); Carbon Dioxide 28 mmol/L (22-29); Chloride 103 mmol/L (98-107); Glomerular Filtration Rate 113.5 mL/min (90-130); Glucose 97 mg/dL (65-115); Osmolality Calculated 286 mOsm/kg (285-295); Potassium 3.8 mmol/L (3.5-5.1); Sodium 138 mmol/L (136-145)
[2021-01-13 12:30] VITALS: BP 147/78; PULSE 72; RESP 18; TEMP 36.6; O2SAT 97
[2021-01-13] MEDS: vancomycin 1,500 MG/300 ML PIGGYBACK 200 MG IV (12:35)
[2021-01-13 14:26] VITALS: BMI 29.5
== END ==
PROVIDERS: PCP Nurse Practitioner; Visit Provider Thoracic Surgery (Cardiothoracic Vascular Surgery)
DX: E11.621 Type 2 diabetes mellitus with foot ulcer (principal); M86.171 Other acute osteomyelitis, right ankle and foot
CPT/HCPCS: 36569; 36592; 71045; 80048; 96365; 96366; J3370

== ENCOUNTER 2021-01-13 15:34 | Outpatient (CLI) | payer OTHER, SELFPAY | END 2021-01-13 15:35 | disposition home or self-care (01) | LOC: WOUND 15:35 | PROVIDERS: PCP Nurse Practitioner; Visit Provider Thoracic Surgery (Cardiothoracic Vascular Surgery) | DX: E11.621 Type 2 diabetes mellitus with foot ulcer (principal); L97.512 Non-pressure chronic ulcer of other part of right foot with fat layer exposed; F17.210 Nicotine dependence, cigarettes, uncomplicated | CPT/HCPCS: 11042 ==

== ENCOUNTER 2021-01-20 14:53 | Outpatient (CLI) | payer OTHER, SELFPAY ==
[2021-01-20 15:19] LABS: Basophils % 0.5 %; Eosinophils # 0.2 10^3/uL (0.0-0.8); Eosinophils % 2.1 %; Hematocrit 46.4 % (42.0-52.0); Hemoglobin 14.8 g/dL (11.7-16.6); Lymphocytes # 1.3 10^3/uL (0.8-4.8); Lymphocytes % 15.6 %; Mean Corpuscular HGB Conc 31.9 g/dL (30.0-36.0); Mean Corpuscular Hemoglobin 30.5 pg (28.0-34.0); Mean Corpuscular Volume 95.7 fl (80-94); Mean Platelet Volume 11.6 fL (7.4-10.4); Monocytes # 0.7 10^3/uL (0.2-0.9); Monocytes % 8.4 %; Neutrophils % 72.8 %; Nucleated Red Blood Cells % 0 %; Platelet Count 120 10^3/cmm (130-400); Red Blood Count 4.85 10^6/uL (4.1-5.3); Red Cell Distribution Width 15.9 % (12.1-15.1); White Blood Count 8.2 10^3/uL (4.0-10.0)
[2021-01-20 15:50] LABS: Anion Gap 14.6 (5-19); Blood Urea Nitrogen 13 mg/dL (8-23); Calcium 9.8 mg/dL (8.5-10.5); Carbon Dioxide 30 mmol/L (22-29); Chloride 97 mmol/L (98-107); Glomerular Filtration Rate 97.3 mL/min (90-130); Glucose 76 mg/dL (65-115); Osmolality Calculated 285 mOsm/kg (285-295); Potassium 3.6 mmol/L (3.5-5.1); Sodium 138 mmol/L (136-145)
[2021-01-20 16:53] LABS: Slide Review Slide Review Perform
[2021-01-20 19:47] LABS: Vancomycin Trough 7.2 ug/mL (10-15)
== END 2021-01-20 14:54 | disposition home or self-care (01) ==
PROVIDERS: PCP Nurse Practitioner; Visit Provider Thoracic Surgery (Cardiothoracic Vascular Surgery)
DX: M86.9 Osteomyelitis, unspecified (principal)
CPT/HCPCS: 80048; 80202; 85025

== ENCOUNTER 2021-01-21 14:40 | Outpatient (CLI) | payer OTHER, SELFPAY | END 2021-01-21 14:41 | disposition home or self-care (01) | LOC: WOUND 14:41 | PROVIDERS: PCP Nurse Practitioner; Visit Provider Thoracic Surgery (Cardiothoracic Vascular Surgery) | DX: E11.621 Type 2 diabetes mellitus with foot ulcer (principal); L97.512 Non-pressure chronic ulcer of other part of right foot with fat layer exposed; F17.210 Nicotine dependence, cigarettes, uncomplicated | CPT/HCPCS: 11042 ==

== ENCOUNTER 2021-01-23 11:56 | Outpatient (CLI) | payer OTHER, SELFPAY ==
[2021-01-23 13:07] LABS: Vancomycin Trough 17.1 ug/mL (10-15)
[2021-01-23 13:08] LABS: Blood Urea Nitrogen 14 mg/dL (8-23)
== END 2021-01-23 11:57 | disposition home or self-care (01) ==
LOC: LAB 11:58
PROVIDERS: PCP Nurse Practitioner; Visit Provider Thoracic Surgery (Cardiothoracic Vascular Surgery)
DX: M86.9 Osteomyelitis, unspecified (principal)
CPT/HCPCS: 80202; 82565; 84520

== ENCOUNTER 2021-01-27 14:49 | Outpatient (CLI) | payer OTHER, SELFPAY | END 2021-01-27 14:50 | disposition home or self-care (01) | LOC: WOUND 14:50 | PROVIDERS: PCP Nurse Practitioner; Visit Provider Nurse Practitioner Family | DX: E11.621 Type 2 diabetes mellitus with foot ulcer (principal); L97.512 Non-pressure chronic ulcer of other part of right foot with fat layer exposed; F17.210 Nicotine dependence, cigarettes, uncomplicated | CPT/HCPCS: 11042 ==

== ENCOUNTER 2021-01-27 16:14 | Outpatient (CLI) | payer OTHER, SELFPAY ==
[2021-01-27 19:44] LABS: Anion Gap 18.3 (5-19); Blood Urea Nitrogen 18 mg/dL (8-23); Calcium 9.7 mg/dL (8.5-10.5); Carbon Dioxide 30 mmol/L (22-29); Chloride 96 mmol/L (98-107); Glucose 62 mg/dL (65-115); Osmolality Calculated 292 mOsm/kg (285-295); Potassium 3.3 mmol/L (3.5-5.1); Sodium 141 mmol/L (136-145); Vancomycin Trough 9.9 ug/mL (10-15)
== END 2021-01-27 16:15 | disposition home or self-care (01) ==
LOC: LAB 16:20
PROVIDERS: PCP Nurse Practitioner; Visit Provider Thoracic Surgery (Cardiothoracic Vascular Surgery)
DX: M86.9 Osteomyelitis, unspecified (principal)
CPT/HCPCS: 80048; 80202

== ENCOUNTER 2021-01-28 10:12 | Outpatient (CLI) | payer OTHER, SELFPAY ==
--- NOTE | 2021-01-28 10:22 | USCV_ITS ---
Arnie Coombs Age: 65 Gender: M : 1955 Exam Date: 01/28/2021 10:40 Ordering Phys: Carmen Osman Technologist: Brit Gomez [place] [facility] [place]ication: HISTORY: Lower extremity pain. PROCEDURES: Venous duplex imaging was performed in bilateral lower extremities. Serial compression, augmentation maneuvers, and spectral Doppler flow evaluation were performed. An evaluation for venous insufficiency was also completed. FINDINGS: All deep veins demonstrated compressibility without evidence of intraluminal thrombus or increased echogenicity. Reflux determinations were made with the patient in the dependent position, the weight being on the contralateral leg. CONCLUSIONS 1. No evidence of DVT in the above-mentioned identifiable veins. 2. Significant venous reflux of greater than 500 seconds noted at the right saphenofemoral junction, distal to the saphenofemoral junction, proximal and mid segments of the greater saphenous vein. The proximal and mid greater saphenous vein segments were found to be less than 1 cm from the surface. They were measuring 0.5 to 1.1 cm in diameter. 3. No significant venous reflux was noted on the left side. 4. Venous dimensions and the depth of the results are as mentioned above 5. No significant venous reflux were noted in the deep veins. Dr Siomara Laureano MD [facility] (Electronically Signed) Final Date: 30 January 2021 00:35 S
== END 2021-01-28 10:13 | disposition home or self-care (01) ==
LOC: US 10:15
PROVIDERS: PCP Nurse Practitioner; Visit Provider Nurse Practitioner
DX: M79.605 Pain in left leg (principal); M79.604 Pain in right leg
CPT/HCPCS: 93970

== ENCOUNTER 2021-02-05 14:36 | Outpatient (CLI) | payer OTHER, SELFPAY ==
[2021-02-05 16:54] LABS: Vancomycin Trough 14.4 ug/mL (10-15)
[2021-02-05 16:55] LABS: Blood Urea Nitrogen 16 mg/dL (8-23); Calcium 9.3 mg/dL (8.5-10.5); Carbon Dioxide 25 mmol/L (22-29); Chloride 102 mmol/L (98-107); Glomerular Filtration Rate 135.6 mL/min (90-130); Glucose 55 mg/dL (65-115); Osmolality Calculated 287 mOsm/kg (285-295); Sodium 139 mmol/L (136-145)
== END 2021-02-05 14:37 | disposition home or self-care (01) ==
LOC: WOUND 14:37
PROVIDERS: PCP Nurse Practitioner; Visit Provider Emergency Medicine
DX: E11.621 Type 2 diabetes mellitus with foot ulcer (principal); L97.512 Non-pressure chronic ulcer of other part of right foot with fat layer exposed; F17.210 Nicotine dependence, cigarettes, uncomplicated
CPT/HCPCS: 11042; 80048; 80202

== ENCOUNTER 2021-02-11 08:09 | Outpatient (CLI) | payer OTHER, SELFPAY | END 2021-02-11 08:10 | disposition home or self-care (01) | LOC: WOUND 08:09 | PROVIDERS: PCP Nurse Practitioner; Visit Provider Thoracic Surgery (Cardiothoracic Vascular Surgery) | DX: E11.621 Type 2 diabetes mellitus with foot ulcer (principal); L97.512 Non-pressure chronic ulcer of other part of right foot with fat layer exposed; F17.210 Nicotine dependence, cigarettes, uncomplicated | CPT/HCPCS: 11042 ==

== ENCOUNTER 2021-02-11 09:18 | Outpatient (CLI) | payer OTHER, SELFPAY ==
[2021-02-11 10:22] LABS: Anion Gap 11.1 (5-19); Blood Urea Nitrogen 19 mg/dL (8-23); Calcium 10.2 mg/dL (8.5-10.5); Carbon Dioxide 31 mmol/L (22-29); Chloride 95 mmol/L (98-107); Glomerular Filtration Rate 97.3 mL/min (90-130); Glucose 103 mg/dL (65-115); Osmolality Calculated 281 mOsm/kg (285-295); Potassium 3.1 mmol/L (3.5-5.1); Sodium 134 mmol/L (136-145)
[2021-02-11 10:28] LABS: Vancomycin Trough 15.1 ug/mL (10-15)
== END 2021-02-11 09:19 | disposition home or self-care (01) ==
LOC: LAB 09:24
PROVIDERS: PCP Nurse Practitioner; Visit Provider Thoracic Surgery (Cardiothoracic Vascular Surgery)
DX: M86.10 Other acute osteomyelitis, unspecified site (principal)
CPT/HCPCS: 36415; 80048; 80202

== ENCOUNTER 2021-02-16 09:24 | Outpatient (CLI) | payer OTHER, SELFPAY ==
[2021-02-16 10:19] LABS: Vancomycin Trough 12.7 ug/mL (10-15)
[2021-02-16 10:21] LABS: Blood Urea Nitrogen 14 mg/dL (8-23); Calcium 9.5 mg/dL (8.5-10.5); Carbon Dioxide 28 mmol/L (22-29); Chloride 101 mmol/L (98-107); Glomerular Filtration Rate 113.5 mL/min (90-130); Glucose 110 mg/dL (65-115); Osmolality Calculated 287 mOsm/kg (285-295); Sodium 138 mmol/L (136-145)
[2021-02-16 10:24] LABS: Anion Gap 12.8 (5-19); Potassium 3.8 mmol/L (3.5-5.1)
== END 2021-02-16 09:25 | disposition home or self-care (01) ==
PROVIDERS: PCP Nurse Practitioner; Visit Provider Thoracic Surgery (Cardiothoracic Vascular Surgery)
DX: M86.9 Osteomyelitis, unspecified (principal)
CPT/HCPCS: 36415; 80048; 80202

== ENCOUNTER 2021-02-17 11:02 | Outpatient (CLI) | payer OTHER, SELFPAY | END 2021-02-17 11:03 | disposition home or self-care (01) | LOC: WOUND 11:02 | PROVIDERS: PCP Nurse Practitioner; Visit Provider Thoracic Surgery (Cardiothoracic Vascular Surgery) | DX: E11.621 Type 2 diabetes mellitus with foot ulcer (principal); L97.512 Non-pressure chronic ulcer of other part of right foot with fat layer exposed; F17.210 Nicotine dependence, cigarettes, uncomplicated | CPT/HCPCS: 11042 ==

== ENCOUNTER 2021-02-20 18:55 | Outpatient (CLI) | payer OTHER, SELFPAY ==
--- NOTE | 2021-02-20 19:10 | XRR_ITS ---
PROCEDURE INFORMATION: Exam: XR Left Femur Exam date and time: 02/20/2021 7:10 PM Age: 65 years old Clinical indication: Pain and injury or trauma; Other: Not specified; Blunt trauma; Thigh or upper leg; Left; Additional info: Pain after injury TECHNIQUE: Imaging protocol: XR Left femur. Views: 2 views. Total images: 3 COMPARISON: No relevant prior studies available. FINDINGS: Tubes, catheters and devices: Multiple surgical clips are present. Bones/joints: No acute fracture nor subluxation. No osseous erosion nor periosteal reaction. Proximal aspect of the femur have been clipped from the radiographs. Soft tissues: Unremarkable. XR/XR femur LT min 2V* [id number] IMPRESSION: No acute osseous pathology. Radiation Dose CTDIVOL = (mGy): DLP = (mGy-cm)
--- NOTE | 2021-02-20 19:10 | XRR_ITS ---
PROCEDURE INFORMATION: Exam: XR Left Hip Exam date and time: 02/20/2021 7:10 PM Age: 65 years old Clinical indication: Pain and injury or trauma; Other: Not specified; Blunt trauma (contusions or hematomas); Hip pain; Left hip; Additional info: Pain after injury TECHNIQUE: Imaging protocol: XR Left hip. Views: 2 or 3 views hip with pelvis when performed. Total images: 3 COMPARISON: No relevant prior studies available. FINDINGS: Bones/joints: No acute fracture nor subluxation. No osseous erosion nor periosteal reaction. Soft tissues: Unremarkable. Vasculature: Incidental phleboliths noted. Atherosclerosis is evident. Endovascular aortic bilateral iliac stent XR/XR hip LT 2-3V wo/w pel* [id number] IMPRESSION: No acute osseous pathology. Radiation Dose CTDIVOL = (mGy): DLP = (mGy-cm)
--- NOTE | 2021-02-20 19:10 | XRR_ITS ---
PROCEDURE INFORMATION: Exam: XR Left Knee Exam date and time: 02/20/2021 7:10 PM Age: 65 years old Clinical indication: Pain and injury or trauma; Other: Not specified; Blunt trauma; Knee; Left; Additional info: Pain after injury TECHNIQUE: Imaging protocol: XR Left knee. Views: 3 views. Total images: 3 COMPARISON: No relevant prior studies available. FINDINGS: Bones/joints: No acute fracture nor subluxation. No osseous erosion nor periosteal reaction. Soft tissues: Normal. Vasculature: Atherosclerosis is evident. XR/XR knee LT 3V* [id number] IMPRESSION: No acute osseous pathology. Radiation Dose CTDIVOL = (mGy): DLP = (mGy-cm)
== END 2021-02-20 18:56 | disposition home or self-care (01) ==
LOC: RAD 19:02
PROVIDERS: PCP Nurse Practitioner; Visit Provider Nurse Practitioner
DX: M25.562 Pain in left knee (principal); M79.652 Pain in left thigh; M25.552 Pain in left hip
CPT/HCPCS: 73502; 73552; 73562

== ENCOUNTER 2021-02-24 08:37 | Outpatient (CLI) | payer OTHER, SELFPAY | END 2021-02-24 08:38 | disposition home or self-care (01) | LOC: WOUND 08:41 | PROVIDERS: PCP Nurse Practitioner; Visit Provider Thoracic Surgery (Cardiothoracic Vascular Surgery) | DX: E11.621 Type 2 diabetes mellitus with foot ulcer (principal); L97.512 Non-pressure chronic ulcer of other part of right foot with fat layer exposed; F17.210 Nicotine dependence, cigarettes, uncomplicated | CPT/HCPCS: 15275; A6250; Q4187 ==

== ENCOUNTER 2021-02-24 15:10 | Outpatient (CLI) | payer OTHER, SELFPAY ==
[2021-02-24 16:23] LABS: C Reactive Protein 7.1 mg/L (0.0-4.9)
[2021-02-25 12:40] LABS: Erythrocyte Sedimentation Rate 2 mm/hr (0-10)
== END 2021-02-24 15:11 | disposition home or self-care (01) ==
PROVIDERS: PCP Nurse Practitioner; Visit Provider Thoracic Surgery (Cardiothoracic Vascular Surgery)
DX: E11.621 Type 2 diabetes mellitus with foot ulcer (principal)
CPT/HCPCS: 36415; 85651; 86140

== ENCOUNTER 2021-03-02 15:07 | Outpatient (CLI) | payer OTHER, SELFPAY | END 2021-03-02 15:08 | disposition home or self-care (01) | LOC: WOUND 15:09 | PROVIDERS: PCP Nurse Practitioner; Visit Provider Emergency Medicine | DX: E11.621 Type 2 diabetes mellitus with foot ulcer (principal); L97.512 Non-pressure chronic ulcer of other part of right foot with fat layer exposed; F17.210 Nicotine dependence, cigarettes, uncomplicated | CPT/HCPCS: 11042 ==

== ENCOUNTER 2021-03-02 17:35 | Emergency (ER) | payer OTHER, MEDICARE, SELFPAY ==
[2021-03-02] VITALS (9 sets, daily range): BP systolic 116–138; BP diastolic 60–90; PULSE 71–89; RESP 18–20; TEMP 36.8; O2SAT 90–96; BMI 32.6
--- NOTE | 2021-03-02 17:56 | USR_ITS ---
PROCEDURE INFORMATION: Exam: US Duplex Left Lower Extremity Veins, Limited Exam date and time: 03/02/2021 5:56 PM Age: 65 years old Clinical indication: Pain; Leg, lower; Left; Additional info: Pain/swelling; Sent from wound care TECHNIQUE: Imaging protocol: Real-time Duplex ultrasound of the Left Lower Extremity with 2-D rome scale, color Doppler flow and spectral waveform analysis with image documentation. Limited exam focused on the left lower extremity veins. COMPARISON: CT angio [facility] [id number] 03/02/2021 7:37 PM FINDINGS: Left deep veins: Unremarkable. The common femoral, femoral, proximal profunda femoral and popliteal veins are patent without thrombus. Normal Doppler waveforms. Normal compressibility and/or augmentation response. Calf veins are patent. Left superficial veins: Unremarkable. Saphenofemoral junction is patent without thrombus. Soft tissues: Subcutaneous soft tissue edema. US/CV venous duplex [facility] [id number] IMPRESSION: No evidence of left lower extremity deep vein thrombosis. Radiation Dose CTDIVOL = (mGy): DLP = (mGy-cm)
--- NOTE | 2021-03-02 18:43 | CTR_ITS ---
PROCEDURE INFORMATION: Exam: CTA Left Lower Extremity With Contrast Exam date and time: 03/02/2021 6:43 PM Age: 65 years old Clinical indication: Edema and swelling, leg or foot; Location not specified; Additional info: Rule out pad in the L leg, no need for R side. Swelling and bruising to left lower extremity. TECHNIQUE: Imaging protocol: Computed tomographic angiography of the Left lower extremity with intravenous contrast. 3D rendering (Not supervised by radiologist): MIP and/or 3D reconstructed images were created by the technologist. Radiation optimization: All CT scans at this facility use at least one of these dose optimization techniques: automated exposure control; mA and/or kV adjustment per patient size (includes targeted exams where dose is matched to clinical indication); or iterative reconstruction. Contrast material: OMNI 350; Contrast volume: 95 ml; Contrast route: INTRAVENOUS (IV); COMPARISON: CR (LOW EXM, ) 03/02/2021 7:23 PM RADIATION DOSE METRICS: Total DLP (mGy-cm): 2371.15 FINDINGS: Left femoral/popliteal arteries: Small volume calcified plaque in the left common femoral artery with mild severity stenosis less than 50%. Scattered foci of small volume calcified plaque throughout the left superficial femoral artery. Areas of mild stenosis less than 50%. No dissection. Scattered atherosclerotic plaques throughout left popliteal artery. Areas of mild stenosis less than 50%. No acute injury. Left infrapopliteal arteries: Focal calcified plaque in the proximal left anterior tibial artery with severe stenosis. Artery is patent distal to the plaque. Left peroneal artery is widely patent diffusely. Other arteries: Scattered small volume arterial wall calcifications of the left posterior tibial artery with minimal stenosis. No occlusion. Intraperitoneal space: Small volume pelvic free fluid with simple appearance. Bones/joints: No fractures of the left lower extremity. Left hip joint alignment is normal. Left knee joint alignment is normal. Soft tissues: Fat containing left inguinal hernia. Diffuse subcutaneous soft tissue edema changes throughout left lower extremity. No significant focal soft tissue hematoma is identified. Superficial surgical clips in the subcutaneous fat of the medial left thigh consistent with great saphenous vein harvest. Nonspecific focal region of increased vascularity and enhancement in the deep hamstring musculature posterior to the mid femoral diaphysis. CT/[place] [id number] IMPRESSION: 1. No significant left lower extremity peripheral arterial occlusive disease. 2. Nonspecific diffuse subcutaneous soft tissue edema. Radiation Dose CTDIVOL = (mGy): DLP = 2371.15 (mGy-cm)
--- NOTE | 2021-03-02 18:44 | XRR_ITS ---
PROCEDURE INFORMATION: Exam: XR Left Femur Exam date and time: 03/02/2021 6:44 PM Age: 65 years old Clinical indication: Multiple sites; Prior surgery; Patient HX: Left leg pain/swollen/discolored; Additional info: Rammed by a cow TECHNIQUE: Imaging protocol: XR Left femur. Views: 2 views. COMPARISON: CR XR femur LT min 2V* [id number] 02/20/2021 7:23 PM FINDINGS: Bones/joints: No acute femur fractures. Moderate severity narrowing of the medial joint space of the knee joint. Moderate severity narrowing of the hip joint space with marginal osteophytic spurring of the superolateral acetabulum. Knee joint alignment is anatomic. Hip joint alignment is anatomic. Soft tissues: Surgical clips in the medial thigh soft tissues. XR/XR femur LT min 2V* [id number] IMPRESSION: Negative for acute femur fracture. Radiation Dose CTDIVOL = (mGy): DLP = (mGy-cm)
--- NOTE | 2021-03-02 18:44 | XRR_ITS ---
PROCEDURE INFORMATION: Exam: XR Left Tibia and Fibula Exam date and time: 03/02/2021 6:44 PM Age: 65 years old Clinical indication: Lower leg; Patient HX: Left leg pain/swollen/discolored; Additional info: Rammed by a cow TECHNIQUE: Imaging protocol: XR Left tibia and fibula. Views: 2 views. COMPARISON: CR XR knee LT 3V* [id number] 02/20/2021 7:23 PM FINDINGS: Bones/joints: Unremarkable. Soft tissues: Diffuse subcutaneous soft tissue edema. XR/XR tibia fibula LT 2V [id number] IMPRESSION: Negative for acute fracture. Radiation Dose CTDIVOL = (mGy): DLP = (mGy-cm)
[2021-03-02 19:18] LABS: Basophils # 0.1 10^3/uL (0.0-0.1); Basophils % 0.4 %; Eosinophils # 0.1 10^3/uL (0.0-0.8); Hematocrit 43.7 % (42.0-52.0); Hemoglobin 13.9 g/dL (11.7-16.6); Lymphocytes % 7.1 %; Mean Corpuscular HGB Conc 31.8 g/dL (30.0-36.0); Mean Corpuscular Hemoglobin 28.9 pg (28.0-34.0); Mean Corpuscular Volume 90.9 fl (80-94); Mean Platelet Volume 10.3 fL (7.4-10.4); Monocytes # 1.3 10^3/uL (0.2-0.9); Monocytes % 9.4 %; Neutrophils % 81.3 %; Nucleated Red Blood Cells % 0 %; Platelet Count 172 10^3/cmm (130-400); Red Blood Count 4.81 10^6/uL (4.1-5.3); Red Cell Distribution Width 15.9 % (12.1-15.1); White Blood Count 13.4 10^3/uL (4.0-10.0)
[2021-03-02 19:44] LABS: Anion Gap 13.2 (5-19); Blood Urea Nitrogen 21 mg/dL (8-23); Calcium 9.2 mg/dL (8.5-10.5); Carbon Dioxide 27 mmol/L (22-29); Chloride 102 mmol/L (98-107); Glucose 111 mg/dL (65-115); Osmolality Calculated 290 mOsm/kg (285-295); Potassium 4.2 mmol/L (3.5-5.1); Sodium 138 mmol/L (136-145)
[2021-03-02] MEDS: iohexol 350 mg/mL 100 mL Btl IV (19:48)
--- NOTE | 2021-03-02 20:31 | ED_ITS ---
HPI - General Adult General: Chief complaint: General Medical Stated complaint: POSS BLOOD CLOT IN LLE:SENT BY DR CAVAZOS Time Seen by Provider: 03/02/21 18:24 History of Present Illness: HPI narrative: Patient is a 65-year-old male with a history of diabetes, hypertension, CHF s/p AICD presents emergency room with complaints of 3 weeks 2 weeks of worsening left leg swelling and ecchymosis after a cow hit me. . Patient reports that he is still able to bear weight but has noticed progressive swelling and pain in the leg over the last 2 weeks. Today, patient was seen and evaluated by Dr. Cavazos for chronic R foot diabetic ulcer and was told to go to the emergency room for further evaluation of L leg swelling and purpura. Denies any shortness breath, chest pain, palpitation, abdominal complaints, nausea/vomiting, or other focal complaints. Patient was seen today in wound care clinic for R sided diabetic ulcer and was started on PO linezolid. Onset: 2 weeks ago Duration: 2 weeks Location:home Severity:moderate Review of Systems Narrative: Constitutional: No fever, no chills. HEENT: No vision changes CV: No chest pain, no palpitations PULM: no cough, no dyspnea. GI: No abdominal pain, no N/V/D. : No dysuria MSKEL: +L leg swelling/echomyosis SKIN: No new rashes, no lesions. NEURO: No headache, no focal weakness. HEME: No visible bruises PSYCH: Normal mood PFSH ED PFSH: Social History Smoking and tobacco status: former smoker Physical Exam Narrative: EXAM NARRATIVE: Head: Atraumatic Eyes: PERRL, conjunctiva without injection ENT: Mucous membrane moist NECK: Supple, ROM intact LUNGS: LCTAB, no crackles/rhonchi CV: RRR ABDOMEN: Soft, nontender in all quadrants EXTREMITY: Active and passive ROM full at hip, knee, ankle intact. No overlying erythema or warmth of leg. All LE compartments soft and non-tender. + Mild TTP to palpation over the right femur midshaft, left tib-fib. Patient is noted to have diffuse ecchymoses and 2+ swelling on the left lower extremity extending to the feet. 2+ DP/PT pulse L side and cap refill of 3 seconds SKIN:+L foot echmoysis and swelling NEURO: Awake and alert, no focal motor deficits PSYCH: Normal mood and affect Course Vital Signs: Vital signs: Vital Signs Temperature 98.2 F 03/02/21 22:30 Pulse Rate 83 03/02/21 23:38 Respiratory Rate 18 03/02/21 23:38 Blood Pressure 130/60 03/02/21 23:38 Pulse Oximetry 92 03/02/21 23:38 MDM - General Adult MDM Narrative: Medical decision making narrative: 65-year-old male presents emergency room for evaluation of left lower extremity swelling and ecchymoses x2 weeks. On exam, patient is hemodynamically stable, no crepitus, 2+ pitting edema with diffuse ecchymosis. 2+ DP/PT pulses with 3-second cap refill on the l side. Case was discussed with Dr. Cavazos for concerns of DVT versus vascular injury. CTA of the lower extremity not show any signs of acute vascular occlusion or injury. Ultrasound duplex negative for DVT. X-rays negative for any acute f ractures. At this present time, patient does not have any signs of compartment syndrome. Given white count of 13.4, patient is started on Keflex. I am aware the patient has linezolid prescribed today. No suspicion that this is necrotizing soft tissue infection given onset of symptoms x2 weeks and no systemic effects. Patient aware of need for close follow up. Disposition: Discharge. Patient counseled regarding diagnostic impression, treatment plan. Patient given ED strict return precautions to return for continuation, worsening, or development of new symptoms. Instructed to f/u w/ PCP regarding symptoms today. Patient verbalized understanding. He is given strict return precautions for any signs of compartment syndrome, worsening swelling or pain, or any new or concerning complaints. Lab Data: Labs: Lab Results 03/02/21 03/02/21 18:55 18:55 WBC 13.4 10^3/uL H 10 ^3/uL (4.0-10.0) RBC 4.81 10^6/uL 10^6 /uL (4.1-5.3) Hgb 13.9 g/dL g/dL (11.7-16.6) Hct 43.7 % % (42.0-52.0) MCV 90.9 fl fl (80-94) MCH 28.9 pg pg (28.0-34.0) MCHC 31.8 g/dL g/dL (30.0-36.0) RDW 15.9 % H % (12.1-15.1) Plt Count 172 10^3/cmm 10^3 /cmm (130-400) MPV 10.3 fL fL (7.4-10.4) Neut % (Auto) 81.3 % % Lymph % (Auto) 7.1 % % Piute % (Auto) 9.4 % % Eos % (Auto) 1.0 % % Baso % (Auto) 0.4 % % Neut # (Auto) 10.90 10^3/uL H 1 0^3/uL (1.8-7.7) Lymph # (Auto) 1.0 10^3/uL 10^3/ uL (0.8-4.8) Piute # (Auto) 1.3 10^3/uL H 10^ 3/uL (0.2-0.9) Eos # (Auto) 0.1 10^3/uL 10^3/ uL (0.0-0.8) Baso # (Auto) 0.1 10^3/uL 10^3/ uL (0.0-0.1) Nucleated RBC % (a uto) 0 % % Nucleated RBCs # 0.0 /100WBC /100W BC Sodium 138 mmol/L mmol/L (136-145) Potassium 4.2 mmol/L mmol/L (3.5-5.1) Chloride 102 mmol/L mmol/L (98-107) Carbon Dioxide 27 mmol/L mmol/L (22-29) Anion Gap 13.2 (5-19) BUN 21 mg/dL mg/dL (8-23) Creatinine 0.9 mg/dL mg/dL (0.7-1.2) GFR Calculation 85.0 mL/min L mL/ min (90-130) Glucose 111 mg/dL mg/dL (65-115) Calculated Osmolal ity 290 mOsm/kg mOsm/ kg (285-295) Calcium 9.2 mg/dL mg/dL (8.5-10.5) Imaging Data^: Other Imaging: Radiologist's impression: [facility] [id number] ReportSigned Patient: Arnie Coombs #: [id number]: 1955cct#:[id number]/Sex: 65 / MADM Date: 03/02/21Loc: ERRoom/Bed:Attending Dr: Ordering Provider/Ordering MD: Francine Stern MD Date of Service: 03/02/21 Procedure(s): XR tibia fibula LT 2V 75896 Accession Number(s): [id number] Report Number: [id number] PROCEDURE INFORMATION: Exam: XR Left Tibia and Fibula Exam date and time: 03/02/2021 6:44 PM Age: 65 years old Clinical indication: Lower leg; Patient HX: Left leg pain/swollen/discolored; Additional info: Rammed by a cow TECHNIQUE: Imaging protocol: XR Left tibia and fibula. Views: 2 views. COMPARISON: CR XR knee LT 3V* [id number] 02/20/2021 7:23 PM FINDINGS: Bones/joints: Unremarkable. Soft tissues: Diffuse subcutaneous soft tissue edema. XR/XR tibia fibula LT 2V 75060 IMPRESSION: Negative for acute fracture. Radiation Dose CTDIVOL = (mGy): DLP = (mGy-cm) Dictated By:Livia Mclean By:Livia Mclean Date/Time:03/02/21 2041DD/ [address] [id number] ReportSigned Patient: Arnie Coombs #: [id number]: 1955cct#:[id number]/Sex: 65 / MADM Date: 03/02/21Loc: ERRoom/Bed:Attending Dr: Ordering Provider/Ordering MD: Francine Stern MD Date of Service: 03/02/21 Procedure(s): XR femur LT min 2V* [id number] Accession Number(s): [id number] Report Number: [id number] PROCEDURE INFORMATION: Exam: XR Left Femur Exam date and time: 03/02/2021 6:44 PM Age: 65 years old Clinical indication: Multiple sites; Prior surgery; Patient HX: Left leg pain/swollen/discolored; Additional info: Rammed by a cow TECHNIQUE: Imaging protocol: XR Left femur. Views: 2 views. COMPARISON: CR XR femur LT min 2V* 15757 02/20/2021 7:23 PM FINDINGS: Bones/joints: No acute femur fractures. Moderate severity narrowing of the medial joint space of the knee joint. Moderate severity narrowing of the hip joint space with marginal osteophytic spurring of the superolateral acetabulum. Knee joint alignment is anatomic. Hip joint alignment is anatomic. Soft tissues: Surgical clips in the medial thigh soft tissues. XR/XR femur LT min 2V* 54424 IMPRESSION: Negative for acute femur fracture. Radiation Dose CTDIVOL = (mGy): DLP = (mGy-cm) Dictated By:Palomo McleaninStrey By:Palomo McleaninStrey Date/Time:03/02/212039DD/ [address] [id number] Scan ReportSigned Patient: Arnie Coombs #: [id number]: 7Acct#:[id number]/Sex: 65 / MADM Date: 03/02/21Loc: ERRoom/Bed:Attending Dr: Ordering Provider/Ordering MD: Francine Stern MD Date of Service: 03/02/21 Procedure(s): [place] [address] Accession Number(s): [id number] Report Number: [id number] PROCEDURE INFORMATION: Exam: CTA Left Lower Extremity With Contrast Exam date and time: 03/02/2021 6:43 PM Age: 65 years old Clinical indication: Edema and swelling, leg or foot; Location not specified; Additional info: Rule out pad in the L leg, no need for R side. Swelling and bruising to left lower extremity. TECHNIQUE: Imaging protocol: Computed tomographic angiography of the Left lower extremity with intravenous contrast. 3D rendering (Not supervised by radiologist): MIP and/or 3D reconstructed images were created by the technologist. Radiation optimization: All CT scans at this facility use at least one of these dose optimization techniques: automated exposure control; mA and/or kV adjustment per patient size (includes targeted exams where dose is matched to clinical indication); or iterative reconstruction. Contrast material: OMNI 350; Contrast volume: 95 ml; Contrast route: INTRAVENOUS (IV); COMPARISON: CR (LOW EXM, ) 03/02/2021 7:23 PM RADIATION DOSE METRICS: Total DLP (mGy-cm): 2371.15 FINDINGS: Left femoral/popliteal arteries: Small volume calcified plaque in the left common femoral artery with mild severity stenosis less than 50%. Scattered foci of small volume calcified plaque throughout the left superficial femoral artery. Areas of mild stenosis less than 50%. No dissection. Scattered atherosclerotic plaques throughout left popliteal artery. Areas of mild stenosis less than 50%. No acute injury. Left infrapopliteal arteries: Focal calcified plaque in the proximal left anterior tibial artery with severe stenosis. Artery is patent distal to the plaque. Left peroneal artery is widely patent diffusely. Other arteries: Scattered small volume arterial wall calcifications of the left posterior tibial artery with minimal stenosis. No occlusion. Intraperitoneal space: Small volume pelvic free fluid with simple appearance. Bones/joints: No fractures of the left lower extremity. Left hip joint alignment is normal. Left knee joint alignment is normal. Soft tissues: Fat containing left inguinal hernia. Diffuse subcutaneous soft tissue edema changes throughout left lower extremity. No significant focal soft tissue hematoma is identified. Superficial surgical clips in the subcutaneous fat of the medial left thigh consistent with great saphenous vein harvest. Nonspecific focal region of increased vascularity and enhancement in the deep hamstring musculature posterior to the mid femoral diaphysis. CT/[place] [address] IMPRESSION: 1. No significant left lower extremity peripheral arterial occlusive disease. 2. Nonspecific diffuse subcutaneous soft tissue edema. Radiation Dose CTDIVOL = (mGy): DLP = 2371.15 (mGy-cm) Dictated By:Palomo McleaninSigned By:Livia Mclean Date/Time:03/02/212044DD/ [address] [address]Tgmnnydwws ReportSigned Patient: Arnie Coombs #: [id number]: 7Acct#:[id number]/Sex: 65 / MADM Date: 03/02/21Loc: ERRoom/Bed:At [facility] Dr: Ordering Provider/Ordering MD: Leesa Loza Date of Service: 03/02/21 Procedure(s): [place] [address] Accession Number(s): [id number] Report Number: [id number] PROCEDURE INFORMATION: Exam: US Duplex Left Lower Extremity Veins, Limited Exam date and time: 03/02/2021 5:56 PM Age: 65 years old Clinical indication: Pain; Leg, lower; Left; Additional info: Pain/swelling; Sent from wound care TECHNIQUE: Imaging protocol: Real-time Duplex ultrasound of the Left Lower Extremity with 2-D rome scale, color Doppler flow and spectral waveform analysis with image documentation. Limited exam focused on the left lower extremity veins. COMPARISON: [place] [address] 03/02/2021 7:37 PM FINDINGS: Left deep veins: Unremarkable. The common femoral, femoral, proximal profunda femoral and popliteal veins are patent without thrombus. Normal Doppler waveforms. Normal compressibility and/or augmentation response. Calf veins are patent. Left superficial veins: Unremarkable. Saphenofemoral junction is patent without thrombus. Soft tissues: Subcutaneous soft tissue edema. US/[place] [address] IMPRESSION: No evidence of left lower extremity deep vein thrombosis. Radiation Dose CTDIVOL = (mGy): DLP = (mGy-cm) Dictated By:Livia Mclean By:Livia Mclean Date/Time:03/02/21D/ 55 Discharge Plan Discharge Patient Disposition: Home Clinical Impression: Cellulitis, Swelling Condition: Stable Prescriptions: New cephalexin 500 mg capsule 500 mg PO BID 10 Days Qty: 20 RF: 0 Discharge Orders: Discharge ED (Routine); Ordered 03/02/21 Ordered By: Francine Stern Referrals: Carmen Osman FNP [Primary Care Provider] - Discharge Diet: Advance as tolerated Discharge Activity: Resume usual activity Patient Instructions: Cellulitis (ED), Leg Edema (ED) Activity Restrictions/Additional Instructions: Please follow-up with your primary care provider for further evaluation of your swelling and redness in your legs. Please take your antibiotics as instructed. Coding Level of Care Code ED Margarine Churn Operator for Sylwia Bryson
[2021-03-02] MEDS: acetaminophen 500 mg Tablet 1000 MG PO (21:32)
== END 2021-03-02 23:00 | disposition home or self-care (01) ==
PROVIDERS: Absent Provider Emergency Medicine; Emergency Provider Emergency Medicine; PCP Nurse Practitioner
DX: L03.116 Cellulitis of left lower limb (principal); Z87.891 Personal history of nicotine dependence
CPT/HCPCS: 73552; 73590; 73706; 80048; 85025; 93971; 99284; Q9967

== ENCOUNTER 2021-03-10 08:04 | Outpatient (CLI) | payer OTHER, SELFPAY | END 2021-03-10 08:05 | disposition home or self-care (01) | LOC: WOUND 08:07 | PROVIDERS: PCP Nurse Practitioner; Visit Provider Thoracic Surgery (Cardiothoracic Vascular Surgery) | DX: E11.621 Type 2 diabetes mellitus with foot ulcer (principal); L97.512 Non-pressure chronic ulcer of other part of right foot with fat layer exposed; F17.210 Nicotine dependence, cigarettes, uncomplicated | CPT/HCPCS: 11042 ==

== ENCOUNTER 2021-03-17 08:06 | Outpatient (CLI) | payer OTHER, SELFPAY | END 2021-03-17 08:07 | disposition home or self-care (01) | LOC: WOUND 08:06 | PROVIDERS: PCP Nurse Practitioner; Visit Provider Thoracic Surgery (Cardiothoracic Vascular Surgery) | DX: E11.621 Type 2 diabetes mellitus with foot ulcer (principal); L97.512 Non-pressure chronic ulcer of other part of right foot with fat layer exposed; F17.210 Nicotine dependence, cigarettes, uncomplicated; I73.9 Peripheral vascular disease, unspecified | CPT/HCPCS: 11042 ==

== ENCOUNTER 2021-03-19 10:20 | Outpatient (CLI) | payer OTHER, SELFPAY | END 2021-03-19 10:21 | disposition home or self-care (01) | LOC: WOUND 10:20 | PROVIDERS: PCP Nurse Practitioner; Visit Provider Nurse Practitioner Family | DX: E11.621 Type 2 diabetes mellitus with foot ulcer (principal); L97.519 Non-pressure chronic ulcer of other part of right foot with unspecified severity; F17.210 Nicotine dependence, cigarettes, uncomplicated | CPT/HCPCS: G0463 ==

== ENCOUNTER 2021-03-20 07:47 | Outpatient (CLI) | payer OTHER, SELFPAY ==
--- NOTE | 2021-03-20 07:50 | NM_ITS ---
WS: [id number] THREE-PHASE BONE SCAN HISTORY: DM TYPE 2 W/FOOT ULCER/VENOUS INSUFFICIENCY COMPARISON: RIGHT foot and LEFT femur radiographs performed on 03/20/2021. Prior LEFT femur 03/02/2021 . Patient is is injected with 24.7 mCi Tc99m HDP intravenously. Immediate angiographic phase imaging is performed over the area of concern. Static blood pool imaging also performed. Two-hour whole-body sc intigrams performed in anterior and posterior projections. Additional large field of view imaging sub mitted as necessary. There is moderate to intense uptake on the angiographic and blood pool phase imaging centered over th e RIGHT foot and ankle. Delayed imaging also shows intense uptake within the RIGHT first toe near the interphalangeal joint. Also on the delayed uptake there is an area of increased uptake involving the proximal LEFT femoral d iaphysis. Prior radiographs from 03/02/2021 were negative. This area will be reimaged by radiograph t chioma. Mild increased uptake on the cortex of the RIGHT lower extremity may be from altered weightbear ing. No rib lesions. Normal soft tissue uptake. Kidneys are both identified. NM/NM bone 3 phase 84208 IMPRESSION: 1. Cellulitis and osteomyelitis involving the first RIGHT toe centered near th e interphalangeal joint. 2. Lobulated increased uptake along the proximal LEFT femur. Radiographs perf ormed today and on 03/02/2021 were negative for fracture. On today's radiograph there is increased lobulation in the soft tissue posterior to the femur. 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
--- NOTE | 2021-03-20 10:50 | XR_ITS ---
WS: [id number] RIGHT FOOT: 3 VIEW(S) TECHNIQUE: AP, oblique and lateral. HISTORY: BONE SCAN COMPARISON COMPARISON: 12/30/2020 No acute fracture or dislocation. Normal tarsal/metatarsal alignment. Large soft tissue ulceration along the plantar surface of the first toe. This ulceration is along the medial aspect of the first toe measuring 2.8 cm. On the lateral projection there is lucency within t he distal phalanx. These findings correlate with the bone scan imaging of osteomyelitis and celluliti s. XR/XR foot RT min 3V* 07363 IMPRESSION: 1. Large soft tissue ulceration along the medial and plantar surface of the fi rst toe and a lucency within the distal phalanx suspicious for osteomyelitis. 2. Correlates with bone scan imaging findings.
--- NOTE | 2021-03-20 10:50 | XR_ITS ---
WS: [id number] LEFT FEMUR: 2 VIEW(S) TECHNIQUE: AP and lateral. HISTORY: BONE SCAN COMPARISON, COMPARISON: prior femur radiograph 03/02/2021 and 02/20/2021. No acute fracture identified. There is very slight increased density in soft tissues posterior to the proximal femur. This new area increased density is slightly lobulated and noncontiguous. This does c orrespond to the abnormality on bone scan. Multiple surgical clips in the soft tissue and vascular calcifications. XR/XR femur LT min 2V* 22031 Impression: 1. No LEFT femur fracture or healing fracture. 2. Amorphous increased density in the soft tissues posterior to the proximal f emur. With history of prior recent trauma in this location this likely represen ts myositis ossificans.
== END 2021-03-20 07:48 | disposition home or self-care (01) ==
LOC: NM 07:48
PROVIDERS: PCP Nurse Practitioner; Visit Provider Emergency Medicine
DX: E11.621 Type 2 diabetes mellitus with foot ulcer (principal); I87.2 Venous insufficiency (chronic) (peripheral); L97.519 Non-pressure chronic ulcer of other part of right foot with unspecified severity; L03.031 Cellulitis of right toe; M86.9 Osteomyelitis, unspecified
CPT/HCPCS: 73552; 73630; 78315; A9561

== ENCOUNTER 2021-03-20 13:30 | Outpatient (CLI) | payer OTHER, SELFPAY | END 2021-03-20 13:31 | disposition home or self-care (01) | LOC: WOUND 13:32 | PROVIDERS: PCP Nurse Practitioner; Visit Provider Surgery | DX: E11.621 Type 2 diabetes mellitus with foot ulcer (principal); L97.512 Non-pressure chronic ulcer of other part of right foot with fat layer exposed; F17.210 Nicotine dependence, cigarettes, uncomplicated | CPT/HCPCS: 11042 ==

== ENCOUNTER 2021-03-24 08:05 | Outpatient (CLI) | payer OTHER, SELFPAY | END 2021-03-24 08:06 | disposition home or self-care (01) | LOC: WOUND 08:05 | PROVIDERS: PCP Nurse Practitioner; Visit Provider Nurse Practitioner Family | DX: E11.621 Type 2 diabetes mellitus with foot ulcer (principal); L97.512 Non-pressure chronic ulcer of other part of right foot with fat layer exposed; J44.9 Chronic obstructive pulmonary disease, unspecified; F17.210 Nicotine dependence, cigarettes, uncomplicated | CPT/HCPCS: 11042 ==

== ENCOUNTER → 2021-05-19 09:44 | Outpatient (BNVA) | payer OTHER, SELFPAY | PROVIDERS: PCP Nurse Practitioner; Visit Provider Nurse Practitioner Family | DX: Z20.822 Contact with and (suspected) exposure to COVID-19 (principal) | CPT/HCPCS: 87635 ==

== ENCOUNTER 2021-08-10 07:45 | Outpatient (CLI) | payer OTHER, SELFPAY ==
--- NOTE | 2021-08-10 07:53 | US_ITS ---
WS: [id number] RIGHT UPPER QUADRANT ULTRASOUND HISTORY: Abnormal bilirubin. COMPARISON: None available. Liver: 17.4 cm in length. Normal size liver. Contour of the liver is very slightly lobulated and irre gular suggestive of cirrhosis. Hepatic veins are very mildly prominent also. Portal Vein: Normal direction of the portal vein but the flow is more phasic than expected. Gallbladder: Prior cholecystectomy. CBD: 0.3 cm Pancreas: Poorly visualized. Head and tail are not well visualized. The neck and proximal body are no rmal. Right kidney: 12.0 cm in length. Normal size kidney. No obstruction. No solid mass identified. Cortic al scarring defect in the lower pole. No mass identified. There is a cyst exophytic from the lower po le measuring 2.3 x 2.1 x 2.3 cm. Aorta and IVC: Unremarkable abdominal aorta and IVC. No ascites. US/US abdomen limited 14749 IMPRESSION: 1. Hepatic cirrhosis. No mass or bile duct dilatation. 2. Early phasic changes within the main portal vein suggesting increasing port al venous pressure. 3. Prior cholecystectomy. 4. Scarring lower pole RIGHT kidney with a small cyst. 5. Pancreas poorly visualized.
== END 2021-08-10 07:46 | disposition home or self-care (01) ==
LOC: RAD 07:46
PROVIDERS: PCP Nurse Practitioner; Visit Provider Nurse Practitioner
DX: Z01.89 Encounter for other specified special examinations (principal); K74.60 Unspecified cirrhosis of liver; Z90.49 Acquired absence of other specified parts of digestive tract
CPT/HCPCS: 76705

== ENCOUNTER → 2021-09-23 15:35 | Outpatient (BNVA) | payer OTHER, SELFPAY | PROVIDERS: PCP Nurse Practitioner; Visit Provider Internal Medicine | DX: K74.60 Unspecified cirrhosis of liver (principal); R10.9 Unspecified abdominal pain; R11.0 Nausea | CPT/HCPCS: 80053; 82103; 82105; 82140; 85025; 85049; 85384; 85610; 85730; 86705; 86706; 86709; 86803; 87340 ==

== ENCOUNTER 2021-11-30 05:34 | Day surgery (SDC) | payer OTHER, SELFPAY ==
[2021-11-26 13:53] VITALS: BMI 28.5
[2021-11-30 06:37] VITALS: BP 121/67; PULSE 62; RESP 18; TEMP 36.4; O2SAT 96
[2021-11-30] MEDS: sodium chloride 0.9% 1,000 ML 30 ML IV (06:49)
[2021-11-30] MEDS: dextrose 50% syringe 50 mL 25 ML IVP (07:21)
--- NOTE | 2021-11-30 07:43 | ANES.PREANE2 ---
Pre-Anesthetic Assessment Height/Weight: Height 1.75 m Weight 87.543 kg Temp Pulse Resp BP Pulse Ox 97.5 F L 62 18 121/67 96 11/30/21 06:37 11/30/21 06:37 11/30/21 06:37 11/30/21 06:37 11/30/21 06:37 Preop Diagnosis: post prandial pain Operation Date: 11/30/21 08:00 Proposed Procedures p EGD 98005,R10.84(Not Applicable) - Burak Parekh MD Familial anesthetic complications: None Was Beta Hollie taken within 24 hours: Yes Was Clonidine taken within 24 hours: N/A Last intake: Intake Last Liquid Date 11/29/21 Last Liquid Time 21:00 Last Solid Date 11/29/21 Last Solid Time 19:00 Social No alcohol and No tobacco Exam alert, oriented x 3, clear to auscultation bilaterally and regular rate & rhythm Airway Mallampati: Class II Dentition: false Pulmonary Chronic Obstructive Pulmonary Disease (2-4 L NC continuously) CV/HEM Coronary Artery Disease (stents > 1year ago, s/p cabg) and Myocardial Infarction Hepatic Cirrhosis Metabolic Hyperlipidemia Anesthetic Plan ASA status: 4 Anesthesia: MAC Risk of > 500 ml blood loss (7ml/kg in children): No Medications/Allergies Home Medications Medication Instructions Recorded Confirmed Last Taken Type allopurinol 100 mg tablet 200 mg PO BID 05/19/21 11/30/21 11/29/21 History bumetanide 1 mg tablet 1 mg PO BID 05/19/21 11/30/21 11/29/21 History cholecalciferol (vitamin D3) 50 50 mcg PO DAILY 05/19/21 11/30/21 11/29/21 History mcg (2,000 unit) capsule empagliflozin 10 mg tablet 10 mg PO DAILY 05/19/21 11/30/21 11/29/21 History (Jardiance) metolazone 2.5 mg tablet 2.5 mg PO .EVERY OTHER DAY tab 05/19/21 11/30/21 11/29/21 History metoprolol succinate 25 mg 12.5 mg PO BID 05/19/21 11/30/21 11/30/21 History tablet,extended release 24 hr mometasone 200 mcg/actuation HFA 2 puff INHALATION BID 05/19/21 11/30/21 11/29/21 History aerosol inhaler (Asmanex HFA) potassium chloride 20 mEq 20 meq PO BID 05/19/21 11/30/21 11/29/21 History tablet,extended release roflumilast 500 mcg tablet 500 mcg PO DAILY 05/19/21 11/30/21 11/28/21 History (Daliresp) spironolactone 25 mg tablet 12.5 mg PO BID tab 05/19/21 11/30/21 11/29/21 History tiotropium 2.5 mcg-olodaterol 2.5 2 puff INHALATION DAILY 05/19/21 11/30/21 Unknown History mcg/actuation mist for inhalation (Stiolto Respimat) insulin glargine 100 unit/mL (3 55 unit SUBCUT BEDTIME ml 09/23/21 11/30/21 11/28/21 History mL) subcutaneous pen (Lantus Solostar U-100 Insulin) aspirin 81 mg capsule 81 mg PO DAILY 11/26/21 11/30/21 11/29/21 History rivaroxaban 20 mg tablet (Xarelto) 20 mg PO QPM 11/26/21 11/30/21 11/26/21 History Novolin R Regular U-100 Insuln See Rx Instructions .ROUTE .COMPLEX 11/30/21 11/30/21 11/29/21 History ipratropium 0.5 mg-albuterol 3 mg 3 ml INHALATION QID 11/30/21 11/30/21 Unknown History (2.5 mg base)/3 mL nebulization soln melatonin 3 mg tablet 3 mg PO DAILY 11/30/21 11/30/21 Unknown History prazosin 2 mg capsule 2 mg PO QPM 11/30/21 11/30/21 11/28/21 History pregabalin 300 mg capsule (Lyrica) 300 mg PO BID 11/30/21 11/30/21 11/28/21 History rosuvastatin 40 mg tablet 40 mg PO DAILY 11/30/21 11/30/21 11/28/21 History tiotropium bromide 1.25 2 puff INHALATION DAILY 11/30/21 11/30/21 11/29/21 History mcg/actuation mist for inhalation (Spiriva Respimat) Allergies Allergy/AdvReac Type Severity Reaction Status Date / Time haloperidol [From Haldol] Allergy Intermediate anxious Verified 11/30/21 06:36 and paranoid ziprasidone [From Geodon] Allergy Intermediate anxious Verified 11/30/21 06:36 and paranoid Current Medications Generic Name Dose Route Start Last Admin Trade Name Freq PRN Reason Stop Dose Admin Sodium Chloride 1,000 mls @ 30 mls/hr 11/30/21 06:00 11/30/21 06:49 Sodium Chloride 0.9% IV 12/01/21 05:59 30 mls/hr .Q24H EVELYN Administration PFSH Anesthesia Social History Smoking and tobacco status: former smoker Data Anesthesia Cardiac Studies: No Data to Display
--- NOTE | 2021-11-30 07:46 | P.HP_ITS ---
Same Day Surgery H&P Indication for Procedure/HPI DATE OF PROCEDURE: November 30, 2021 CHIEF COMPLAINT/INDICATIONFOR SURGICAL PROCEDURE: Postprandial abdominal pain PREOP DIAGNOSIS: post prandial pain PLANNED PROCEDURE: Operation Date: 11/30/21 08:00 Proposed Procedures p EGD 48089,R10.84(Not Applicable) - Burak Parekh MD Medications/Allergies* Home Medications Medication Instructions Recorded Confirmed Type allopurinol 100 mg tablet 200 mg PO BID 05/19/21 11/30/21 History bumetanide 1 mg tablet 1 mg PO BID 05/19/21 11/30/21 History cholecalciferol (vitamin D3) 50 50 mcg PO DAILY 05/19/21 11/30/21 History mcg (2,000 unit) capsule empagliflozin 10 mg tablet 10 mg PO DAILY 05/19/21 11/30/21 History (Jardiance) metolazone 2.5 mg tablet 2.5 mg PO .EVERY OTHER DAY tab 05/19/21 11/30/21 History metoprolol succinate 25 mg 12.5 mg PO BID 05/19/21 11/30/21 History tablet,extended release 24 hr mometasone 200 mcg/actuation HFA 2 puff INHALATION BID 05/19/21 11/30/21 History aerosol inhaler (Asmanex HFA) potassium chloride 20 mEq 20 meq PO BID 05/19/21 11/30/21 History tablet,extended release roflumilast 500 mcg tablet 500 mcg PO DAILY 05/19/21 11/30/21 History (Daliresp) spironolactone 25 mg tablet 12.5 mg PO BID tab 05/19/21 11/30/21 History tiotropium 2.5 mcg-olodaterol 2.5 2 puff INHALATION DAILY 05/19/21 11/30/21 History mcg/actuation mist for inhalation (Stiolto Respimat) insulin glargine 100 unit/mL (3 55 unit SUBCUT BEDTIME ml 09/23/21 11/30/21 History mL) subcutaneous pen (Lantus Solostar U-100 Insulin) aspirin 81 mg capsule 81 mg PO DAILY 11/26/21 11/30/21 History rivaroxaban 20 mg tablet (Xarelto) 20 mg PO QPM 11/26/21 11/30/21 History Novolin R Regular U-100 Insuln See Rx Instructions .ROUTE .COMPLEX 11/30/21 11/30/21 History ipratropium 0.5 mg-albuterol 3 mg 3 ml INHALATION QID 11/30/21 11/30/21 History (2.5 mg base)/3 mL nebulization soln melatonin 3 mg tablet 3 mg PO DAILY 11/30/21 11/30/21 History prazosin 2 mg capsule 2 mg PO QPM 11/30/21 11/30/21 History pregabalin 300 mg capsule (Lyrica) 300 mg PO BID 11/30/21 11/30/21 History rosuvastatin 40 mg tablet 40 mg PO DAILY 11/30/21 11/30/21 History tiotropium bromide 1.25 2 puff INHALATION DAILY 11/30/21 11/30/21 History mcg/actuation mist for inhalation (Spiriva Respimat) Allergies/Adverse Reactions Allergy/AdvReac Type Severity Reaction Status Date / Time haloperidol [From Haldol] Allergy Intermediate anxious Verified 11/30/21 06:36 and paranoid ziprasidone [From Geodon] Allergy Intermediate anxious Verified 11/30/21 06:36 and paranoid Current Medications: Generic Name Dose Route Start Last Admin Trade Name Freq PRN Reason Stop Dose Admin Sodium Chloride 1,000 mls @ 30 mls/hr 11/30/21 06:00 11/30/21 06:49 Sodium Chloride 0.9% IV 12/01/21 05:59 30 mls/hr .Q24H EVELYN Administration Pertinent History/Comorbid Conditions* Social History Smoking and tobacco status: former smoker Pertinent Exam Findings alert, oriented x 3, clear to auscultation bilaterally, regular rate & rhythm, operative site marked and procedure specific exam findings Recommendations Surgery/Procedure today Coding Level of Care Code Acute Heat Treating Bluer for Sylwia Bryson
[2021-11-30 08:38] VITALS: BP 99/64; PULSE 64; RESP 16; TEMP 36.3; O2SAT 91
--- NOTE | 2021-11-30 08:46 | ANE.PACU2 ---
Inpatient post-anesthesia follow up: Airway intact: Yes Vital signs: Temperature 97.3 F Pulse Rate 64 Respiratory Rate 16 Blood Pressure 99/64 Pulse Oximetry 91 Oxygen Delivery Me thod Nasal Cannula Oxygen Flow Rate 6 Fraction of Inspir ed Oxygen Hydration adequate: Yes Nausea and vomiting: No Pain level: 1 Mental status: Baseline
[2021-11-30 08:49] VITALS: BP 100/69; PULSE 60; RESP 16; O2SAT 95
[2021-12-01 08:16] LABS: H. Pylori / CLO Test Negative
== END 2021-11-30 09:30 | disposition home or self-care (01) ==
PROVIDERS: PCP Nurse Practitioner; Visit Provider Internal Medicine
PROC: 0DJ08ZZ Inspection of Upper Intestinal Tract, Via Natural or Artificial Opening Endoscopic (ICD-10-PCS; CPT 43235; principal; 2021-11-30 08:00)
DX: R10.84 Generalized abdominal pain (principal); K29.50 Unspecified chronic gastritis without bleeding; J44.9 Chronic obstructive pulmonary disease, unspecified; Z99.81 Dependence on supplemental oxygen; I25.10 Atherosclerotic heart disease of native coronary artery without angina pectoris; Z95.5 Presence of coronary angioplasty implant and graft; I25.2 Old myocardial infarction; Z95.1 Presence of aortocoronary bypass graft; E78.5 Hyperlipidemia, unspecified; Z79.4 Long term (current) use of insulin; Z79.82 Long term (current) use of aspirin; Z87.891 Personal history of nicotine dependence
CPT/HCPCS: 43239; 87077; 88305; J2704; J7030

== ENCOUNTER 2021-12-30 22:00 | Emergency (ER) | payer OTHER, MEDICARE, SELFPAY ==
[2021-12-30 22:05] VITALS: BP 118/78; PULSE 65; RESP 22; TEMP 36.7; O2SAT 95; BMI 33.2
--- NOTE | 2021-12-30 22:13 | ECG_ITS ---
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 Measurements Intervals [place] Rate: 61 P: [place]: QRS: -88 QRSD: 166 T: 104 QT: 492 QTc: 496 Interpretive Statements ELECTRONIC VENTRICULAR PACEMAKER ABNORMAL RHYTHM ECG Compared to ECG 09/15/2017 06:21:27 Atrial fibrillation no longer present Intraventricular conduction delay no longer present Myocardial infarct finding no longer present Electronically Signed On 12-30-2021 22:42:28 CDT by Veto Navas M.D. [id number]
--- NOTE | 2021-12-30 22:13 | XRR_ITS ---
PROCEDURE INFORMATION: Exam: XR Chest Exam date and time: 12/30/2021 10:40 PM Age: 66 years old Clinical indication: Angina; Additional info: Cp TECHNIQUE: Imaging protocol: Radiologic exam of the chest. Views: 1 view. COMPARISON: CR XR chest 1V portable [id number] 01/13/2021 9:12 AM FINDINGS: Tubes, catheters and devices: Left-sided pacemaker. Lungs: Mild pulmonary vascular congestion. Bibasilar atelectasis versus minimal infiltrate. Pleural spaces: Unremarkable. No pleural effusion. No pneumothorax. Heart/Mediastinum: Cardiomegaly. Bones/joints: Sternotomy wires. XR/XR chest 1V portable [id number] IMPRESSION: 1. Cardiomegaly. 2. Mild pulmonary vascular congestion. 3. Bibasilar atelectasis versus minimal infiltrate.
--- NOTE | 2021-12-30 22:39 | W.ED.SOB ---
HPI - SOB/Dyspnea General: Chief Complaint: Shortness of Breath/Dyspnea Stated Complaint: Chest Pain/SOB Time Seen by Provider: 12/30/21 22:17 Source: patient Mode of arrival: ambulatory Limitations: no limitations History of Present Illness: HPI Narrative: 66-year-old male has a history of cirrhosis he is on 2 L oxygen at baseline states he has had increasing shortness of breath along with swelling in his legs over the last 1 to 2 days. States he had a slight cough patient states that his increase his oxygen to 4 L at home. He denies any fevers he had some mild chest pains denies any vomiting or diarrhea. Associated symptoms: Deny abdominal pain, chest pain, fever(s), nausea or vomiting Review of Systems Const: Denies: fever(s), chills, body aches or change in appetite Eyes: Denies: blurry vision or eye discomfort ENMT: Denies: throat pain or dental pain Card: Denies: chest pain Resp: Reports: dyspnea GI: Denies: abdominal pain, nausea, vomiting or diarrhea : Denies: dysuria Musc: Reports: extremity swelling Skin/Breast: Denies: rash Neuro: Denies: headache(s) Psych: Denies: depression Freddy/Lymph: Denies: easy bruising All/Imm: Denies: urticaria PFSH ED PFSH: Medical History (Updated 12/31/21 @ 01:46 by Edith Samayoa MD) Cirrhosis of liver COPD (chronic obstructive pulmonary disease) Social History Smoking and tobacco status: former smoker Physical Exam Const: COMMON NORMALS: patient oriented x3 GENERAL APPEARANCE: ill appearing HENMT: COMMON NORMALS: normocephalic and atraumatic HEAD & SCALP: normocephalic and atraumatic Eye: COMMON NORMALS: Equal, round and reactive pupils present and EOMs intact bilaterally PUPIL: Yes Equal, round and reactive pupils present Neck/C-Spine: COMMON NORMALS: full ROM and supple Chest: COMMONS NORMALS: normal inspection of the chest and normal palpation of entire chest wall Resp: COMMON NORMALS: normal respiratory effort, No retractions and No use of accessory muscles AUSCULTATION: rales Cardio: COMMON NORMALS: regular rate, regular rhythm and No murmurs present (Cardio) RATE: regular rate RHYTHM: regular rhythm GI: COMMON NORMALS: Normal to inspection, nondistended, normoactive bowel sounds present, Soft to palpation, non-tender and no masses PALPATION: Yes Soft to palpation Extremity: COMMON NORMALS: full ROM NARRATIVE EXTREMITY EXAM: 2+ edema Neuro: COMMON NORMALS: patient oriented x3, moves all extremities and no focal motor deficits Psych: COMMON NORMALS: mental status grossly normal, Normal thought process present and cooperative THOUGHT PROCESS: Normal thought process present Skin: COMMON NORMALS: no rashes or lesions noted and no wounds GENERAL SKIN EXAM: no rashes or lesions noted Course Vital Signs: Vital signs: Vital Signs Temperature 98.0 F 12/30/21 22:05 Pulse Rate 61 12/30/21 23:33 Respiratory Rate 18 12/30/21 23:30 Blood Pressure 118/78 12/30/21 22:05 Pulse Oximetry 98 12/30/21 23:30 Oxygen Delivery Me thod 12/30/21 23:30 Oxygen Flow Rate 2 12/30/21 23:30 MDM - SOB/Dyspnea Medical Decision Making Patient presents here with shortness of breath does have cirrhosis slight fluid overload he did diurese with Lasix he is well-appearing here he is on his 2 L at baseline chest x-ray blood works normal he stable for discharge he has no signs of pulm embolism he is to follow-up with PCP and return if worsening. Lab Data : 12/30/21 22:55 12/30/21 22:55 Labs/Radiology: Radiology Impressions Chest X-Ray 12/30/21 22:13 IMPRESSION: 1. Cardiomegaly. 2. Mild pulmonary vascular congestion. 3. Bibasilar atelectasis versus minimal infiltrate. Laboratory Results WBC 8.8 10^3/uL (4.0-10.0) 12/30/21 22:55 RBC 5.12 10^6/uL (4.1-5.3) 12/30/21 22:55 Hgb 12.1 g/dL (11.7-16.6) 12/30/21 22:55 Hct 41.0 % (42.0-52.0) L 12/30/21 22:55 MCV 80.1 fl (80-94) 12/30/21 22:55 MCH 23.6 pg (28.0-34.0) L 12/30/21 22:55 MCHC 29.5 g/dL (30.0-36.0) L 12/30/21 22:55 RDW 20.5 % (12.1-15.1) H 12/30/21 22:55 Plt Count 181 10^3/cmm (130-400) 12/30/21 22:55 MPV 10.1 fL (7.4-10.4) 12/30/21 22:55 Neut % (Auto) 77.5 % 12/30/21 22:55 Lymph % (Auto) 9.8 % 12/30/21 22:55 [place] % (Auto) 9.4 % 12/30/21 22:55 Eos % (Auto) 2.2 % 12/30/21 22:55 Baso % (Auto) 0.6 % 12/30/21 22:55 Neut # (Auto) 6.82 10^3/uL (1.8-7.7) 12/30/21 22:55 Lymph # (Auto) 0.9 10^3/uL (0.8-4.8) 12/30/21 22:55 [place] # (Auto) 0.8 10^3/uL (0.2-0.9) 12/30/21 22:55 Eos # (Auto) 0.2 10^3/uL (0.0-0.8) 12/30/21 22:55 Baso # (Auto) 0.1 10^3/uL (0.0-0.1) 12/30/21 22: Nucleated RBC % (auto) 0 % 12/30/21 22: Nucleated RBCs # 0.0 /100WBC 12/30/21 22:55 PT 16.70 SECONDS (12.1-14.9) H 12/30/21 22:55 INR 1.31 (0.8-1.2) H 12/30/21 22:55 Sodium 140 mmol/L (136-145) 12/30/21 22:55 Potassium 4.3 mmol/L (3.5-5.1) 12/30/21 22:55 Chloride 103 mmol/L (98-107) 12/30/21 22:55 Carbon Dioxide 27 mmol/L (22-29) 12/30/21 22:55 Anion Gap 14.3 (5-19) 12/30/21 22:55 BUN 21 mg/dL (8-23) 12/30/21 22:55 Creatinine 0.9 mg/dL (0.7-1.2) 12/30/21 22:55 GFR Calculation 84.7 mL/min (90-130) L 12/30/21 22:55 Glucose 94 mg/dL (65-115) 12/30/21 22:55 Calculated Osmolality 293 mOsm/kg (285-295) 12/30/21 22:55 Calcium 9.2 mg/dL (8.5-10.5) 12/30/21 22:55 Total Bilirubin 2.5 mg/dL (0.15-1.2) H 12/30/21 22:55 AST 19 U/L (0-40) 12/30/21 22:55 ALT 14 U/L (0-41) 12/30/21 22:55 Alkaline Phosphatase 142 U/L (40-130) H 12/30/21 22:55 Troponin T Baseline 30 ng/L (0-15) H 12/30/21 22:55 Troponin T 120 Minute 20.87 ng/L (0-15) H 12/31/21 01:00 Delta Troponin T -9.13 ABS# (0-10) L 12/31/21 01:00 NT-Pro-B Natriuret Pep 2185 pg/mL (0-125) H 12/30/21 22:55 Total Protein 7.0 g/dL (6.6-8.7) 12/30/21 22:55 Albumin 3.6 g/dL (3.5-5.2) 12/30/21 22:55 Globulin 3.4 g/dL (1.3-4.6) 12/30/21 22:55 SARS-CoV-2 Ag (Rapid) Negative (Negative) 12/30/21 23:00 EKG Data EKG 1: I personally reviewed and interpreted this EKG as follows: EKG Interpretation Date: 12/30/21 EKG interpretation time: 22:19 Interpretation: paced hr [address] or t wave abnormalities qrs 166 qtc 494 Discharge Plan Discharge Patient Disposition: Home Clinical Impression: Congestive heart failure, Chest pain Condition: Stable Prescriptions: No Action allopurinol 100 mg tablet 200 mg PO BID bumetanide 1 mg tablet 1 mg PO BID potassium chloride 20 mEq tablet extended release 20 meq PO BID Daliresp 500 mcg tablet 500 mcg PO DAILY metoprolol succinate 25 mg tablet extended release 24 hr 12.5 mg PO BID spironolactone 25 mg tablet 12.5 mg PO BID Jardiance 10 mg tablet 10 mg PO DAILY metolazone 2.5 mg tablet 2.5 mg PO .EVERY OTHER DAY Stiolto Respimat 2.5-2.5 mcg/actuation mist 2 puff inhalation DAILY Asmanex HFA 200 mcg/actuation HFA aerosol inhaler 2 puff inhalation BID cholecalciferol (vitamin D3) 50 mcg (2,000 unit) capsule 50 mcg PO DAILY pantoprazole 40 mg tablet,delayed release (DR/EC) 40 mg PO DAILY Qty: 90 8RF insulin glargine [Lantus Solostar U-100 Insulin] 100 unit/mL (3 mL) insulin pen 55 unit SUBCUT BEDTIME Xarelto 20 mg Tablet 20 mg PO QPM Rx Instructions: must administer with evening meal aspirin 81 mg Capsule 81 mg PO DAILY ipratropium-albuterol 0.5 mg-3 mg(2.5 mg base)/3 mL Solution For Nebulization 3 ml INHALATION QID melatonin 3 mg Tablet 3 mg PO DAILY prazosin 2 mg Capsule 2 mg PO QPM rosuvastatin 40 mg Tablet 40 mg PO DAILY Lyrica 300 mg Capsule 300 mg PO BID Spiriva Respimat 1.25 mcg/actuation Mist 2 puff INHALATION DAILY Novolin R Regular U-100 Insuln See Rx Instructions .ROUTE .COMPLEX Rx Instructions: sliding scale Discharge Orders: Discharge ED (Routine); Ordered 12/31/21 Ordered By: Edith Samayoa Referrals: Carmen Osman FNP [Primary Care Provider] - 1-3 days Discharge Diet: Advance as tolerated Discharge Activity: Resume usual activity Patient Instructions: Heart Failure (ED), Chest Pain (ED) Coding Level of Care Code ED Gospel Singer for Sylwia Fwd Exam Comprehensive
[2021-12-30 23:11] LABS: Basophils # 0.1 10^3/uL (0.0-0.1); Basophils % 0.6 %; Eosinophils # 0.2 10^3/uL (0.0-0.8); Eosinophils % 2.2 %; Hemoglobin 12.1 g/dL (11.7-16.6); Lymphocytes # 0.9 10^3/uL (0.8-4.8); Lymphocytes % 9.8 %; Mean Corpuscular HGB Conc 29.5 g/dL (30.0-36.0); Mean Corpuscular Hemoglobin 23.6 pg (28.0-34.0); Mean Corpuscular Volume 80.1 fl (80-94); Mean Platelet Volume 10.1 fL (7.4-10.4); Monocytes # 0.8 10^3/uL (0.2-0.9); Monocytes % 9.4 %; Neutrophils # 6.82 10^3/uL (1.8-7.7); Neutrophils % 77.5 %; Nucleated Red Blood Cells % 0 %; Platelet Count 181 10^3/cmm (130-400); Red Blood Count 5.12 10^6/uL (4.1-5.3); Red Cell Distribution Width 20.5 % (12.1-15.1); White Blood Count 8.8 10^3/uL (4.0-10.0)
[2021-12-30 23:23] LABS: INR 1.31 (0.8-1.2)
[2021-12-30 23:30] VITALS: PULSE 64; RESP 18; O2SAT 98
[2021-12-30 23:30] LABS: SARS Covid-2 Antigen Negative (Negative)
[2021-12-30] MEDS: FUROsemide 10 mg/mL SDV 10mL 60 MG IVP (23:30)
[2021-12-30] MEDS: ipratropium-albuterol 3 mL Neb INHALATION (23:30)
[2021-12-30 23:33] VITALS: PULSE 61
[2021-12-30 23:44] LABS: Troponin(5th) Baseline 30 ng/L (0-15)
[2021-12-30 23:49] LABS: Alanine Aminotransferase 14 U/L (0-41); Albumin Level 3.6 g/dL (3.5-5.2); Alkaline Phosphatase 142 U/L (40-130); Anion Gap 14.3 (5-19); Aspartate Amino Transferase 19 U/L (0-40); Blood Urea Nitrogen 21 mg/dL (8-23); Calcium 9.2 mg/dL (8.5-10.5); Carbon Dioxide 27 mmol/L (22-29); Chloride 103 mmol/L (98-107); Creatinine Clr Calc Pharmacy 96.3463; Globulin 3.4 g/dL (1.3-4.6); Glomerular Filtration Rate 84.7 mL/min (90-130); Glucose 94 mg/dL (65-115); Osmolality Calculated 293 mOsm/kg (285-295); Potassium 4.3 mmol/L (3.5-5.1); Sodium 140 mmol/L (136-145); Total Bilirubin 2.5 mg/dL (0.15-1.2)
[2021-12-30 23:51] LABS: NT Pro B Type Natriuretic Pept 2185 pg/mL (0-125)
[2021-12-31 00:15] VITALS: BP 128/68; PULSE 63; RESP 17; O2SAT 98
--- NOTE | 2021-12-31 00:17 | ECG_ITS ---
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 Measurements Intervals [place] Rate: 59 P: [place]: QRS: 269 QRSD: 181 T: 92 QT: 492 QTc: 491 Interpretive Statements ELECTRONIC VENTRICULAR PACEMAKER ABNORMAL RHYTHM ECG Compared to ECG 12/30/2021 22:19:43 No significant changes Electronically Signed On 12-31-2021 22:53:29 CDT by Siomara Laureano M.D. [email or web address] community [email or web address]/[id number]
[2021-12-31 00:30] VITALS: BP 139/86; PULSE 66; RESP 19; O2SAT 96
[2021-12-31 01:00] VITALS: BP 124/71; PULSE 66; RESP 19; O2SAT 95
[2021-12-31 01:30] VITALS: BP 134/82; PULSE 69; RESP 16; O2SAT 96
[2021-12-31 01:36] LABS: Troponin 5 2HR 20.87 ng/L (0-15)
[2021-12-31 01:43] LABS: Troponin 5 2HR Delta -9.13 ABS# (0-10)
[2021-12-31 02:04] VITALS: BP 129/76; PULSE 67; RESP 18; O2SAT 97
== END 2021-12-31 01:58 | disposition home or self-care (01) ==
PROVIDERS: Emergency Provider Emergency Medicine; PCP Nurse Practitioner
DX: R07.9 Chest pain, unspecified (principal); I50.9 Heart failure, unspecified; Z79.82 Long term (current) use of aspirin; Z79.4 Long term (current) use of insulin; J44.9 Chronic obstructive pulmonary disease, unspecified; Z87.891 Personal history of nicotine dependence; Z99.81 Dependence on supplemental oxygen; Z20.822 Contact with and (suspected) exposure to COVID-19
CPT/HCPCS: 71045; 80053; 83880; 84484; 85025; 85610; 87426; 93005; 94640; 96374; 99285; J1940

== ENCOUNTER 2022-01-02 04:51 | Emergency (ER) | payer OTHER, MEDICARE, SELFPAY ==
[2022-01-02 04:52] VITALS: BP 113/66; PULSE 65; RESP 18; O2SAT 95; BMI 30.4
[2022-01-02 04:59] VITALS: TEMP 36.9
--- NOTE | 2022-01-02 05:21 | ECG_ITS ---
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 Measurements Intervals [place] Rate: 62 P: [place]: QRS: 264 QRSD: 179 T: 101 QT: 488 QTc: 498 Interpretive Statements ELECTRONIC VENTRICULAR PACEMAKER ABNORMAL RHYTHM ECG Compared to ECG 12/31/2021 00:17:04 No significant changes Electronically Signed On 01-02-2022 13:34:23 CDT by Naye Rosario M.D. [id number] f
--- NOTE | 2022-01-02 05:22 | XRR_ITS ---
PROCEDURE INFORMATION: Exam: XR Chest Exam date and time: 01/02/2022 5:26 AM Age: 66 years old Clinical indication: Shortness of breath; Prior surgery; Surgery type: Pacemaker; Additional info: SOB TECHNIQUE: Imaging protocol: Radiologic exam of the chest. Views: 1 view. COMPARISON: CR (CHEST, ) 12/30/2021 10:40 PM FINDINGS: Tubes, catheters and devices: A cardiac pacing device is again seen projecting over the left chest. Lungs: There is increased interstitial markings and haziness of the lower lungs, which in the setting of cardiomegaly is consistent with pulmonary congestion. Pneumonia should be excluded clinically. Pleural spaces: Unremarkable. No pleural effusion. No pneumothorax. Heart/Mediastinum: Stable cardiomediastinal silhouette. The patient is status post CABG. Bones/joints: Cervical spine fusion hardware noted. Median sternotomy changes seen. XR/XR chest 1V portable [id number] IMPRESSION: Imaging findings mild pulmonary congestion. Pneumonia should be excluded clinically.
--- NOTE | 2022-01-02 05:26 | W.ED.SOB ---
Documented by User: Raymundo Horton DO 01/03/22 16:10 HPI - SOB/Dyspnea General: Chief Complaint: Shortness of Breath/Dyspnea Stated Complaint: sob Time Seen by Provider: 01/02/22 04:55 Source: patient History of Present Illness: HPI Narrative: 66-year-old gentleman with a history of congestive heart failure, COPD, and cirrhosis. He was here 2.5 days ago with similar symptoms of shortness of breath. He usually wears 2 L at home by nasal cannula. He has been on 4 L since before his last visit here. He was given IV Lasix for diuresis at that visit, and had improvement at that point. He notes that he is no longer on any diuretics at home. He is also out of his Lyrica, which seems to help his chronic leg pain. He says that he is probably gained 15 pounds in the last couple of weeks of water weight. His legs are swollen, making it hard to get around. They are painful as well. He denies significant fever. He has had a cough. No sputum production. He has had some chest discomfort on and off with his shortness of breath. MD elicited complaint: shortness of breath Pertinent past history: congestive heart failure Onset (ago): day(s) Context: other Timing: constant and progressively worsening Severity: moderate Exacerbating factors: lying flat and exertion Relieving factors: oxygen Known history of: congestive heart failure Associated symptoms: Reports dizziness and orthopnea; Deny abdominal pain, chest congestion, chest pain, cough, fever(s), nausea, syncope or vomiting Treatment prior to arrival: oxygen Related Data: Home oxygen amount: 2 liters Review of Systems Const: Denies: fever(s) ENMT: Denies: throat pain Card: Reports: orthopnea; Denies: chest pain or syncope Resp: Reports: dyspnea; Denies: chest congestion GI: Denies: abdominal pain, nausea or vomiting Neuro: Reports: dizziness PFSH ED PFSH: Medical History Cirrhosis of liver COPD (chronic obstructive pulmonary disease) Social History Smoking and tobacco status: former smoker Physical Exam Const: COMMON NORMALS: no acute distress GENERAL APPEARANCE: cooperative ORIENTATION/CONSCIOUSNESS: Yes awake, Yes oriented to person, Yes oriented to place and Yes oriented to time HENMT: COMMON NORMALS: normocephalic, atraumatic and Normal external nose present HEAD & SCALP: normocephalic and atraumatic FACE & SINUS: normal facial exam NOSE: Normal external nose present Eye: COMMON NORMALS: Equal, round and reactive pupils present and EOMs intact bilaterally PUPIL: Yes Equal, round and reactive pupils present Chest: CHEST: Yes Symmetrical chest wall rise Resp: COMMON NORMALS: normal respiratory effort and clear to auscultation bilaterally AUSCULTATION: clear to auscultation bilaterally and diminished lung sounds Cardio: COMMON NORMALS: regular rate and regular rhythm RATE: regular rate RHYTHM: regular rhythm GI: COMMON NORMALS: Normal to inspection, nondistended, normoactive bowel sounds present Extremity: GENERAL: Yes edema (2+) Neuro: SENSORIUM/ORIENTATION: Yes oriented to person, Yes oriented to place and Yes oriented to time SPEECH: speech normal Course Vital Signs: Vital signs: Vital Signs Temperature 98.5 F 01/02/22 04:59 Pulse Rate 66 01/02/22 05:48 Respiratory Rate 19 H 01/02/22 05:48 Blood Pressure 113/66 01/02/22 05:48 Pulse Oximetry 98 01/02/22 05:48 Oxygen Delivery Me thod 01/02/22 05:48 Oxygen Flow Rate 4 01/02/22 05:48 MDM - SOB/Dyspnea Medical Decision Making Labs are pending. Chest x-ray shows mild pulmonary vascular congestion. It appears somewhat improved from 2.5 days ago. He is given 80 mg of IV Lasix here. EKG shows electronic paced rhythm. Blood pressure is 113/66, saturations are 96% on his home 2 L. Respirations are 14. He does have significant edema. Further treatment dependent on work-up. Given his baseline oxygen requirement, he will likely go home on diuretics. He will be checked out to Dr. Perrin at shift change. We will refill his Lyrica as he is asking for this. Lab Data : 01/02/22 05:01 01/02/22 05:49 Labs/Radiology: Radiology Impressions Chest X-Ray 01/02/22 05:22 IMPRESSION: Imaging findings mild pulmonary congestion. Pneumonia should be excluded clinically. Laboratory Results WBC 6.6 10^3/uL (4.0-10.0) 01/02/22 05:01 RBC 4.64 10^6/uL (4.1-5.3) 01/02/22 05:01 Hgb 11.3 g/dL (11.7-16.6) L 01/02/22 05:01 Hct 36.7 % (42.0-52.0) L 01/02/22 05:01 MCV 79.1 fl (80-94) L 01/02/22 05:01 MCH 24.4 pg (28.0-34.0) L 01/02/22 05:01 MCHC 30.8 g/dL (30.0-36.0) 01/02/22 05:01 RDW 20.0 % (12.1-15.1) H 01/02/22 05:01 Plt Count 141 10^3/cmm (130-400) 01/02/22 05:01 MPV 10.4 fL (7.4-10.4) 01/02/22 05:01 Neut % (Auto) 72.1 % 01/02/22 05:01 Lymph % (Auto) 12.6 % 01/02/22 05:01 [place] % (Auto) 11.4 % 01/02/22 05:01 Eos % (Auto) 2.3 % 01/02/22 05:01 Baso % (Auto) 1.1 % 01/02/22 05:01 Neut # (Auto) 4.76 10^3/uL (1.8-7.7) 01/02/22 05:01 Lymph # (Auto) 0.8 10^3/uL (0.8-4.8) 01/02/22 05:01 [place] # (Auto) 0.8 10^3/uL (0.2-0.9) 01/02/22 05:01 Eos # (Auto) 0.2 10^3/uL (0.0-0.8) 01/02/22 05:01 Baso # (Auto) 0.1 10^3/uL (0.0-0.1) 01/02/22 05:01 Nucleated RBC % (auto) 0 % 01/02/22 05:01 Nucleated RBCs # 0.0 /100WBC 01/02/22 05:01 Sodium 138 mmol/L (136-145) 01/02/22 05:49 Potassium 3.3 mmol/L (3.5-5.1) L 01/02/22 05:49 Chloride 97 mmol/L (98-107) L 01/02/22 05:49 Carbon Dioxide 32 mmol/L (22-29) H 01/02/22 05:49 Anion Gap 12.3 (5-19) 01/02/22 05:49 BUN 17 mg/dL (8-23) 01/02/22 05:49 Creatinine 0.9 mg/dL (0.7-1.2) 01/02/22 05:49 GFR Calculation 84.7 mL/min (90-130) L 01/02/22 05:49 Glucose 120 mg/dL (65-115) H 01/02/22 05:49 Calculated Osmolality 289 mOsm/kg (285-295) 01/02/22 05:49 Calcium 9.7 mg/dL (8.5-10.5) 01/02/22 05:49 Total Bilirubin 3.7 mg/dL (0.15-1.2) H 01/02/22 05:49 AST 26 U/L (0-40) 01/02/22 05:49 ALT 16 U/L (0-41) 01/02/22 05:49 Alkaline Phosphatase 143 U/L (40-130) H 01/02/22 05:49 Troponin T Gen 5 ng/L 26 ng/L (0-15) H 01/02/22 05:49 NT-Pro-B Natriuret Pep 2256 pg/mL (0-125) H 01/02/22 05:49 Total Protein 6.8 g/dL (6.6-8.7) 01/02/22 05:49 Albumin 3.6 g/dL (3.5-5.2) 01/02/22 05:49 Globulin 3.2 g/dL (1.3-4.6) 01/02/22 05:49 Discharge Plan Discharge Patient Disposition: Home Clinical Impression: Congestive heart failure Condition: Stable Prescriptions: Continued bumetanide 1 mg tablet 1 mg PO BID Qty: 15 0RF Lyrica 300 mg Capsule 300 mg PO BID Qty: 60 0RF Discontinued metolazone 2.5 mg tablet 2.5 mg PO .EVERY OTHER DAY No Action allopurinol 100 mg tablet 200 mg PO BID potassium chloride 20 mEq tablet extended release 20 meq PO BID Daliresp 500 mcg tablet 500 mcg PO DAILY metoprolol succinate 25 mg tablet extended release 24 hr 12.5 mg PO BID spironolactone 25 mg tablet 12.5 mg PO BID Jardiance 10 mg tablet 10 mg PO DAILY Stiolto Respimat 2.5-2.5 mcg/actuation mist 2 puff inhalation DAILY Asmanex HFA 200 mcg/actuation HFA aerosol inhaler 2 puff inhalation BID cholecalciferol (vitamin D3) 50 mcg (2,000 unit) capsule 50 mcg PO DAILY pantoprazole 40 mg tablet,delayed release (DR/EC) 40 mg PO DAILY Qty: 90 8RF insulin glargine [Lantus Solostar U-100 Insulin] 100 unit/mL (3 mL) insulin pen 55 unit SUBCUT BEDTIME Xarelto 20 mg Tablet 20 mg PO QPM Rx Instructions: must administer with evening meal aspirin 81 mg Capsule 81 mg PO DAILY ipratropium-albuterol 0.5 mg-3 mg(2.5 mg base)/3 mL Solution For Nebulization 3 ml INHALATION QID melatonin 3 mg Tablet 3 mg PO DAILY prazosin 2 mg Capsule 2 mg PO QPM rosuvastatin 40 mg Tablet 40 mg PO DAILY Spiriva Respimat 1.25 mcg/actuation Mist 2 puff INHALATION DAILY Novolin R Regular U-100 Insuln See Rx Instructions .ROUTE .COMPLEX Rx Instructions: sliding scale Discharge Orders: Discharge ED (Routine); Ordered 01/02/22 Ordered By: Raymundo Horton Referrals: Carmen Osman FNP [Primary Care Provider] - 1-3 days Patient Instructions: Heart Failure (ED) Activity Restrictions/Additional Instructions: Medication as directed. Return for worsening chest discomfort, shortness of breath, continued leg swelling or weight gain despite treatment, other concerning symptoms Sign Out Sign Out Data: Patient Sign Out occurred on 01/02/22 at 06:32. Patient's care was discussed, and care was transferred from to Nito Perrin DO. Coding Level of Care Code ED Bioprocessing Manufacturing Technician for [employer]g [employer] Documented by User: Nito Perrin DO 01/02/22 07:26 HPI - SOB/Dyspnea General: Chief Complaint: Shortness of Breath/Dyspnea Stated Complaint: sob Time Seen by Provider: 01/02/22 04:55 PFSH ED PFSH: Medical History Cirrhosis of liver COPD (chronic obstructive pulmonary disease) Social History Smoking and tobacco status: former smoker Course Vital Signs: Vital signs: Vital Signs Temperature 98.5 F 01/02/22 04:59 Pulse Rate 66 01/02/22 05:48 Respiratory Rate 19 H 01/02/22 05:48 Blood Pressure 113/66 01/02/22 05:48 Pulse Oximetry 98 01/02/22 05:48 Oxygen Delivery Me thod 01/02/22 05:48 Oxygen Flow Rate 4 01/02/22 05:48 MDM - SOB/Dyspnea Medical Decision Making Labs are pending. Chest x-ray shows mild pulmonary vascular congestion. It appears somewhat improved from 2.5 days ago. He is given 80 mg of IV Lasix here. EKG shows electronic paced rhythm. Blood pressure is 113/66, saturations are 96% on his home 2 L. Respirations are 14. He does have significant edema. Further treatment dependent on work-up. Given his baseline oxygen requirement, he will likely go home on diuretics. He will be checked out to Dr. Perrin at shift change. We will refill his Lyrica as he is asking for this. Labs reviewed. Troponin at baseline BNP is slightly decreased from previous. Reinstitute diuretics follow-up within a week with his primary care or hog ringer. Lab Data : 01/02/22 05:01 01/02/22 05:49 Labs/Radiology: Radiology Impressions Chest X-Ray 01/02/22 05:22 IMPRESSION: Imaging findings mild pulmonary congestion. Pneumonia should be excluded clinically. Laboratory Results WBC 6.6 10^3/uL (4.0-10.0) 01/02/22 05:01 RBC 4.64 10^6/uL (4.1-5.3) 01/02/22 05:01 Hgb 11.3 g/dL (11.7-16.6) L 01/02/22 05:01 Hct 36.7 % (42.0-52.0) L 01/02/22 05:01 MCV 79.1 fl (80-94) L 01/02/22 05:01 MCH 24.4 pg (28.0-34.0) L 01/02/22 05:01 MCHC 30.8 g/dL (30.0-36.0) 01/02/22 05:01 RDW 20.0 % (12.1-15.1) H 01/02/22 05:01 Plt Count 141 10^3/cmm (130-400) 01/02/22 05:01 MPV 10.4 fL (7.4-10.4) 01/02/22 05:01 Neut % (Auto) 72.1 % 01/02/22 05:01 Lymph % (Auto) 12.6 % 01/02/22 05:01 [place] % (Auto) 11.4 % 01/02/22 05:01 Eos % (Auto) 2.3 % 01/02/22 05:01 Baso % (Auto) 1.1 % 01/02/22 05:01 Neut # (Auto) 4.76 10^3/uL (1.8-7.7) 01/02/22 05:01 Lymph # (Auto) 0.8 10^3/uL (0.8-4.8) 01/02/22 05:01 [place] # (Auto) 0.8 10^3/uL (0.2-0.9) 01/02/22 05:01 Eos # (Auto) 0.2 10^3/uL (0.0-0.8) 01/02/22 05:01 Baso # (Auto) 0.1 10^3/uL (0.0-0.1) 01/02/22 05:01 Nucleated RBC % (auto) 0 % 01/02/22 05:01 Nucleated RBCs # 0.0 /100WBC 01/02/22 05:01 Sodium 138 mmol/L (136-145) 01/02/22 05:49 Potassium 3.3 mmol/L (3.5-5.1) L 01/02/22 05:49 Chloride 97 mmol/L (98-107) L 01/02/22 05:49 Carbon Dioxide 32 mmol/L (22-29) H 01/02/22 05:49 Anion Gap 12.3 (5-19) 01/02/22 05:49 BUN 17 mg/dL (8-23) 01/02/22 05:49 Creatinine 0.9 mg/dL (0.7-1.2) 01/02/22 05:49 GFR Calculation 84.7 mL/min (90-130) L 01/02/22 05:49 Glucose 120 mg/dL (65-115) H 01/02/22 05:49 Calculated Osmolality 289 mOsm/kg (285-295) 01/02/22 05:49 Calcium 9.7 mg/dL (8.5-10.5) 01/02/22 05:49 Total Bilirubin 3.7 mg/dL (0.15-1.2) H 01/02/22 05:49 AST 26 U/L (0-40) 01/02/22 05:49 ALT 16 U/L (0-41) 01/02/22 05:49 Alkaline Phosphatase 143 U/L (40-130) H 01/02/22 05:49 Troponin T Gen 5 ng/L 26 ng/L (0-15) H 01/02/22 05:49 NT-Pro-B Natriuret Pep 2256 pg/mL (0-125) H 01/02/22 05:49 Total Protein 6.8 g/dL (6.6-8.7) 01/02/22 05:49 Albumin 3.6 g/dL (3.5-5.2) 01/02/22 05:49 Globulin 3.2 g/dL (1.3-4.6) 01/02/22 05:49 Discharge Plan Discharge Patient Disposition: Home Clinical Impression: Congestive heart failure Condition: Stable Prescriptions: Continued bumetanide 1 mg tablet 1 mg PO BID Qty: 15 0RF Lyrica 300 mg Capsule 300 mg PO BID Qty: 60 0RF Discontinued metolazone 2.5 mg tablet 2.5 mg PO .EVERY OTHER DAY No Action allopurinol 100 mg tablet 200 mg PO BID potassium chloride 20 mEq tablet extended release 20 meq PO BID Daliresp 500 mcg tablet 500 mcg PO DAILY metoprolol succinate 25 mg tablet extended release 24 hr 12.5 mg PO BID spironolactone 25 mg tablet 12.5 mg PO BID Jardiance 10 mg tablet 10 mg PO DAILY Stiolto Respimat 2.5-2.5 mcg/actuation mist 2 puff inhalation DAILY Asmanex HFA 200 mcg/actuation HFA aerosol inhaler 2 puff inhalation BID cholecalciferol (vitamin D3) 50 mcg (2,000 unit) capsule 50 mcg PO DAILY pantoprazole 40 mg tablet,delayed release (DR/EC) 40 mg PO DAILY Qty: 90 8RF insulin glargine [Lantus Solostar U-100 Insulin] 100 unit/mL (3 mL) insulin pen 55 unit SUBCUT BEDTIME Xarelto 20 mg Tablet 20 mg PO QPM Rx Instructions: must administer with evening meal aspirin 81 mg Capsule 81 mg PO DAILY ipratropium-albuterol 0.5 mg-3 mg(2.5 mg base)/3 mL Solution For Nebulization 3 ml INHALATION QID melatonin 3 mg Tablet 3 mg PO DAILY prazosin 2 mg Capsule 2 mg PO QPM rosuvastatin 40 mg Tablet 40 mg PO DAILY Spiriva Respimat 1.25 mcg/actuation Mist 2 puff INHALATION DAILY Novolin R Regular U-100 Insuln See Rx Instructions .ROUTE .COMPLEX Rx Instructions: sliding scale Discharge Orders: Discharge ED (Routine); Ordered 01/02/22 Ordered By: Raymundo Horton Referrals: Carmen Osman, DOMESTIC LAUNDRY WORKER [Primary Care Provider] - 1-3 days Patient Instructions: Heart Failure (ED) Activity Restrictions/Additional Instructions: Medication as directed. Return for worsening chest discomfort, shortness of breath, continued leg swelling or weight gain despite treatment, other concerning symptoms Sign Out Sign Out Data: Patient Sign Out occurred on 01/02/22 at 06:32. Patient's care was discussed, and care was transferred from to Nito Perrin DO. Coding Level of Care Code ED Bioprocessing Manufacturing Technician for Sylwia Bryson
[2022-01-02 05:30] LABS: Basophils # 0.1 10^3/uL (0.0-0.1); Basophils % 1.1 %; Eosinophils # 0.2 10^3/uL (0.0-0.8); Eosinophils % 2.3 %; Hematocrit 36.7 % (42.0-52.0); Hemoglobin 11.3 g/dL (11.7-16.6); Lymphocytes # 0.8 10^3/uL (0.8-4.8); Lymphocytes % 12.6 %; Mean Corpuscular HGB Conc 30.8 g/dL (30.0-36.0); Mean Corpuscular Hemoglobin 24.4 pg (28.0-34.0); Mean Corpuscular Volume 79.1 fl (80-94); Mean Platelet Volume 10.4 fL (7.4-10.4); Monocytes # 0.8 10^3/uL (0.2-0.9); Monocytes % 11.4 %; Neutrophils # 4.76 10^3/uL (1.8-7.7); Neutrophils % 72.1 %; Nucleated Red Blood Cells % 0 %; Platelet Count 141 10^3/cmm (130-400); Red Blood Count 4.64 10^6/uL (4.1-5.3); White Blood Count 6.6 10^3/uL (4.0-10.0)
[2022-01-02] MEDS: FUROsemide 10 mg/mL SDV 10mL 80 MG IVP (05:38)
--- NOTE | 2022-01-02 05:40 | PC.NURSE ---
Blood drawn from IV site was hemolized. Lab has been asked to redraw.
[2022-01-02 05:45] VITALS: PULSE 74; RESP 18; O2SAT 96
[2022-01-02] MEDS: ipratropium-albuterol 3 mL Neb INHALATION (05:45)
[2022-01-02 05:48] VITALS: BP 113/66; PULSE 66; PULSE 77; RESP 19; O2SAT 96; O2SAT 98
[2022-01-02 06:18] LABS: Troponin T (5th) Once 26 ng/L (0-15)
[2022-01-02 06:22] LABS: Alanine Aminotransferase 16 U/L (0-41); Albumin Level 3.6 g/dL (3.5-5.2); Alkaline Phosphatase 143 U/L (40-130); Anion Gap 12.3 (5-19); Aspartate Amino Transferase 26 U/L (0-40); Blood Urea Nitrogen 17 mg/dL (8-23); Calcium 9.7 mg/dL (8.5-10.5); Carbon Dioxide 32 mmol/L (22-29); Chloride 97 mmol/L (98-107); Creatinine Clr Calc Pharmacy 92.3565; Globulin 3.2 g/dL (1.3-4.6); Glomerular Filtration Rate 84.7 mL/min (90-130); Glucose 120 mg/dL (65-115); NT Pro B Type Natriuretic Pept 2256 pg/mL (0-125); Osmolality Calculated 289 mOsm/kg (285-295); Potassium 3.3 mmol/L (3.5-5.1); Sodium 138 mmol/L (136-145); Total Bilirubin 3.7 mg/dL (0.15-1.2); Total Protein 6.8 g/dL (6.6-8.7)
== END 2022-01-02 07:36 | disposition home or self-care (01) ==
PROVIDERS: Emergency Medicine; Emergency Provider Family Medicine; PCP Nurse Practitioner
DX: I50.9 Heart failure, unspecified (principal); Z79.4 Long term (current) use of insulin; Z79.82 Long term (current) use of aspirin; J44.9 Chronic obstructive pulmonary disease, unspecified; Z87.891 Personal history of nicotine dependence
CPT/HCPCS: 71045; 80053; 83880; 84484; 85025; 93005; 94640; 96374; 99285; J1940

== ENCOUNTER 2022-07-01 07:23 | Outpatient (CLI) | payer OTHER, SELFPAY ==
--- NOTE | 2022-07-01 07:44 | US_ITS ---
WS: [id number] TESTICULAR ULTRASOUND HISTORY: ?MASS OR HERNIA COMPARISON: None available. TECHNIQUE: Real-time and color Doppler imaging or utilized to perform a testicular ultrasound. Right testicle: 5.1 cm x 2.7 cm x 2.3 cm. Mild heterogeneity throughout the testicle. No mass. Normal vascularity. Normal color Doppler is present throughout. Systolic and diastolic velocities are both present. No significant hydrocele. Right epididymis: Normal epididymis with no increased vascularity. Left testicle: 4.0 cm x 2.7 cm x 2.4 cm. Normal size and echogenicity. No mass or torsion. Normal color Doppler is present throughout. Systolic and diastolic velocities are both present. Small complex hydrocele. Low level echoes within the hydrocele. Left epididymis: Spermatocele with a maximum diameter of 5 mm. No increased vascularity although ther e is heterogeneity of the epididymis. Bilateral markedly enlarged and varicoceles. There is marked increased vascularity and dilatation of the varicoceles. US/US scrotum [id number] IMPRESSION: 1. No testicular mass or torsion identified. 2. Mild heterogeneity within the LEFT epididymitis but no increased vascularit y. Small LEFT spermatocele. 3. Bilateral varicoceles. 4. Mildly complex small LEFT hydrocele.
== END 2022-07-01 07:24 | disposition home or self-care (01) ==
PROVIDERS: PCP Nurse Practitioner; Visit Provider Nurse Practitioner
DX: N50.89 Other specified disorders of the male genital organs (principal); N43.41 Spermatocele of epididymis, single; I86.1 Scrotal varices; N43.3 Hydrocele, unspecified
CPT/HCPCS: 76870

== ENCOUNTER → 2022-08-13 13:59 | Outpatient (BNVA) | payer OTHER, SELFPAY | PROVIDERS: PCP Nurse Practitioner; Visit Provider Student in an Organized Health Care Education/Training Program | DX: M18.11 Unilateral primary osteoarthritis of first carpometacarpal joint, right hand (principal) | CPT/HCPCS: 73110; 99204 ==

== ENCOUNTER 2022-09-07 05:43 | Day surgery (SDC) | payer OTHER, SELFPAY ==
[2022-09-06 09:05] VITALS: BMI 26.6
[2022-09-07] VITALS (10 sets, daily range): BP systolic 97–127; BP diastolic 49–76; PULSE 60–79; RESP 14–18; TEMP 36.4–36.9; O2SAT 91–98
--- NOTE | 2022-09-07 | XR_ITS ---
WS: [id number] Exam: XR finger RT min 2V [id number] Date/Time of Exam: 09/07/2022 12:00 AM Reason For Exam: JULIAN PIC Intraoperative C-arm images of the right wrist are submitted. The images depict surgical removal of the greater multangular with associated postoperative changes i n the soft tissues. This study was obtained for intraoperative purposes.
[2022-09-07 06:24] LABS: Glucose Point of Care 104 mg/dL (70-110)
[2022-09-07] MEDS: acetaminophen 1,000 MG/100 ML PIGGYBACK 400 MG IV (06:25)
[2022-09-07] MEDS: sodium chloride 0.9% 1,000 ML 30 ML IV (06:25)
[2022-09-07] MEDS: ketorolac 30 mg/mL INJ IVP (06:26)
--- NOTE | 2022-09-07 07:00 | W.PM.OPSUD ---
Surgery/Procedure H&P Update DATE OF PROCEDURE: September 07, 2022 DATE H&P PERFORMED: 08/13/22 CHANGES TO PREVIOUS DOCUMENTATION: None PREOP DIAGNOSIS: Right thumb Basal joint Arthritis PRIMARY INDICATION FOR PROCEDURE: Right thumb basal joint arthritis PLANNED PROCEDURE: Operation Date: 09/07/22 07:00 Proposed Procedures p Right thumb basal joint arthroplasty:70631,M18.12(Right) - Aron Garnett DO
[2022-09-07] MEDS: ceFAZolin 2,000 MG in sodium chloride 0.9% (plus) 50 ML 100 MG IV (07:11)
[2022-09-07] MEDS: lidocaine 1% INJ 10 mL (per mL) XX (07:44)
[2022-09-07] MEDS: gelatin 12-7 mm Sponge 1 EACH TOPICAL (08:04)
--- NOTE | 2022-09-07 08:52 | PC.NURSE ---
Pt arrived to PACU, LMA in place, airway patent, O2 at 6L/min via simple mask. Dressing to right hand C/D/I, right fingers p/w/d, cap refill <3 seconds. Elevated right arm on pillow.
--- NOTE | 2022-09-07 08:54 | PM.OP2 ---
Brief Operative Note Date of procedure: 09/07/22 Pre-op diagnosis: Right thumb basal joint arthritis Post-op diagnosis: same Procedure Done: Right thumb basal joint arthroplasty with suspensioplasty and APL tendon transfer Surgeon: Aron Garnett Estimated blood loss (mL): 10 Complications: None Post-op Plan: Patient taken to PACU in stable condition recovering well splint on in place clean dry and intact. Patient will receive appropriate discharge instructions as well as pain medication postoperatively. We will follow-up with me in the office in 2 weeks. Condition: stable Disposition: same day Coding Level of Care Code Acute Code for Sylwia Byrson
--- NOTE | 2022-09-07 08:57 | PM.PACU ---
PACU note Narrative: Splint on in place limits examination patient was taken back in stable condition fingertips are warm well-perfused brisk capillary refill less than 2 seconds. Patient is able to wiggle fingers but limitation of sensory and motor secondary to splint. Exam: awake Disposition: discharged
--- NOTE | 2022-09-07 08:57 | PM.OP ---
Operative Report Date of procedure: September 07, 2022 Pre-op diagnosis: Preop Diagnosis Right thumb Basal joint Arthritis Procedure: Post-op diagnosis: Same Procedure done: Right thumb basal joint arthroplasty with Arthrex fiberloc suspensioplasty and APL slip tendon transfer and interposition Implants: Arthrex fiber lock suspension implant kit for basal joint arthroplasty Surgeon: Aron Garnett DO Estimated blood loss: 10 mL Tourniquet time 55 minutes Complications: none Condition: stable Disposition: same day Brief History: Patient's been seen and worked up in the outpatient setting.? Findings consistent with a right thumb basal joint severe arthritis.? This is failed conservative treatment patient has underwent multiple injections as well as bracing at this point patient's last injection only provided minimal relief and at this point time patient's only other treatment option surgical intervention of the right thumb basal joint.? We talked about surgery in detail about the risk benefits complication alternatives to surgical nonsurgical treatment options.? At this point time patient's persistent pain is causing significant issues.? Patient does understand with the basal joint arthroplasty potential loss of range of motion as well as strength but ultimately this would provide patient with significant pain relief.? Through shared decision making patient elects proceed with surgical intervention.? Once again patient understands risk benefits complication alternatives to each treatment option understanding risk elects to proceed with surgery. Procedure: Patient seen evaluated in the preoperative holding area.? Consent was signed and reviewed with patient.? Correct extremity marked.? Once cleared by anesthesia patient was taken back to the operative suite.? Patient was placed in supine position all bony prominences well-padded patient was properly secured to the bed.? Underwent anesthesia for the anesthesia department.? A armboard was placed to the right upper extremity a nonsterile tourniquet applied to the right upper arm.? Once appropriately anesthetized right upper extremity was then prepped and draped in standard orthopedic fashion.? Final timeout performed.? Patient received appropriate preoperative antibiotics. Esmarch tourniquet was used exsanguinate the right upper extremity to 250 mmHg.? I then utilized a 15 blade in standard longitudinal fashion directly over the right thumb basal joint dorsoradial.? Sharp scalpel incision was made through skin only.? I then switched to Littler dissection scissors and dissected out the dorsal cutaneous branches which were protected throughout this case.? I then identified the APL and EPL tendons.? I then performed a first dorsal compartment release under direct visualization with loupe magnification.? At this point time I then mobilized the tendons with a blunt wheat self retractor and went through this interval.? Next I was directly onto the CMC joint dorsal capsule.? I then subsequently utilized my dissection scissors to dissect out the radial artery which was then identified and protected by my phys assistant throughout this case with a Kasdan retractor.? Once I identified the radial artery and dorsal branch I then subsequently performed my capsulotomy of the first CMC joint using a [place] blade.? I then introduced a [place] into the arthritic space at the first CMC joint.? This was confirmed with mini C arm to be the appropriate bone prior to performing trapeziectomy.? The trapezium was then shelled out and its entirety with a McClamary elevator with care to protect and not injure any of my remaining carpal bone articular cartilage as well as not to damage/injure the radial artery as it was protected throughout the case.? This was then removed and identified the FCR within the floor of my incision.? At this point time I thoroughly irrigated and removed of all residual bony debris.? A [place] was placed into the STT joint and this was found to be free of arthritic changes.? I then took an x-ray confirming complete trapeziectomy.? I then subsequently plan to proceed with utilizing Arthrex fiber lock suspensioplasty kit which was then opened and then subsequently drilled into the second metacarpal base.? Once I confirm my appropriate placement with mini C arm all suture anchor.? Once this was confirmed appropriate placement I then drilled the impacted and deployed the bicortical suture anchor.? This had excellent tension and could lift the arm off of the table with its fixation.? I then subsequently identified the radial aspect of the first metacarpal and at its mid substance on the radial aspect I subsequently drilled, tapped and holding the thumb in appropriate adduction with not over distraction keeping it in line with the base of the second and subsequently loaded under appropriate tension and thumb positioning keeping the thumb in adduction and appropriate length impacted this suture anchor which had excellent fixation and the excess suture was then removed.? This was then confirmed to have excellent axial stability and an appropriate suspensioplasty.? In order to help add with fixation and interposition within the voided space from the trapeziectomy I then identified a slip of the APL which was then harvested proximally and then weaved this through the FCR tendon twice and then tied this onto the APL tendon itself which created a soft tissue interposition as well as added appropriate abduction to the thumb with appropriate thumb position.? This was then secured with 2 horizontal mattress stitches with 2-0 FiberWire.? I then took the excess of the APL tendon and then placed this within the voided space as a interposition.? I then subsequently had the tourniquet deflated.? Hemostasis was satisfactory.? I then took some Gelfoam to add for soft tissue and interposition within the voided space and hemostasis.? I then closed the capsule with Monocryl suture.? Wound bed was once again thoroughly irrigated.? I then closed the incision with deep 3-0 Vicryl suture as well as running Monocryl suture and Steri-Strips with Dermabond glue.? Final x-rays with mini C arm were then taken showing stable trapeziectomy with soft tissue and suture anchor interposition.? Thumb had excellent axial stability as well as appropriate positioning.? Patient was then dressed with 4 x 4's ABD Curlex and a thumb spica splint.? With an Mj wrap.? Patient was awakened from anesthesia and taken to PACU in stable condition. Disposition: Patient taken to PACU in stable condition recovering well.? Patient will receive appropriate discharge instructions as well as pain medication postoperatively.? Patient will follow therapy protocol with OT hand therapy for basal joint arthroplasty.? Patient to maintain splint until follow-up and be nonweightbearing to the right upper extremity. Patient understands agrees with current plan.? All questions answered.? We will see me in the office in 2 weeks.
--- NOTE | 2022-09-07 09:05 | PC.NURSE ---
Pt awake, LMA removed at this time, pt tolerated well.
--- NOTE | 2022-09-07 14:36 | ANE.PACU2 ---
Inpatient post-anesthesia follow up: Airway intact: Yes Vital signs: Temperature 97.5 F Pulse Rate 60 Respiratory Rate 18 Blood Pressure 121/70 Pulse Oximetry 91 Oxygen Delivery Me thod Room Air Oxygen Flow Rate 2 Fraction of Inspir ed Oxygen Hydration adequate: Yes Nausea and vomiting: No Pain level: 2 Mental status: Baseline
[2022-09-08 09:13] LABS: Glucose Point of Care 108 mg/dL (70-110)
== END 2022-09-07 10:50 | disposition home or self-care (01) ==
PROVIDERS: PCP Nurse Practitioner; Visit Provider Student in an Organized Health Care Education/Training Program
PROC: (CPT 26535; principal; 2022-09-07 07:00)
DX: M18.11 Unilateral primary osteoarthritis of first carpometacarpal joint, right hand; E11.42 Type 2 diabetes mellitus with diabetic polyneuropathy; Z89.411 Acquired absence of right great toe; M25.871 Other specified joint disorders, right ankle and foot; M20.42 Other hammer toe(s) (acquired), left foot; Z79.4 Long term (current) use of insulin; M25.879 Other specified joint disorders, unspecified ankle and foot; Z79.82 Long term (current) use of aspirin
CPT/HCPCS: 25310; 25447; 36416; 73140; 76000; 82962; 99204; C1713; J0131; J0690; J1100; J1885; J2405; J2704; J2795; J3010; J7030

== ENCOUNTER → 2022-09-20 11:53 | Outpatient (BNVA) | payer OTHER, SELFPAY | PROVIDERS: PCP Nurse Practitioner; Visit Provider Student in an Organized Health Care Education/Training Program | DX: M18.11 Unilateral primary osteoarthritis of first carpometacarpal joint, right hand (principal); E11.42 Type 2 diabetes mellitus with diabetic polyneuropathy; Z89.411 Acquired absence of right great toe; M25.871 Other specified joint disorders, right ankle and foot; Z79.4 Long term (current) use of insulin | CPT/HCPCS: 73130; 99024; 99213 ==

== ENCOUNTER 2022-10-05 10:36 | Outpatient (RCR) | payer OTHER, SELFPAY | END 2022-10-13 23:59 | disposition home or self-care (01) | LOC: SOT 10:36 | PROVIDERS: Visit Provider Student in an Organized Health Care Education/Training Program | DX: Z47.89 Encounter for other orthopedic aftercare (principal) | CPT/HCPCS: 97022; 97110; 97140; 97166; 97530 ==

== ENCOUNTER 2022-10-14 06:00 | Outpatient (RCR) | payer OTHER, SELFPAY | END 2022-11-12 23:59 | disposition home or self-care (01) | LOC: SOT 06:00 | PROVIDERS: Visit Provider Student in an Organized Health Care Education/Training Program | DX: Z47.89 Encounter for other orthopedic aftercare (principal) | CPT/HCPCS: 97022; 97110; 97124; 97140 ==

== ENCOUNTER 2022-11-13 06:00 | Outpatient (RCR) | payer OTHER, SELFPAY | END 2022-12-13 23:59 | disposition home or self-care (01) | LOC: SOT 06:00 | PROVIDERS: Visit Provider Student in an Organized Health Care Education/Training Program | DX: Z47.89 Encounter for other orthopedic aftercare (principal) | CPT/HCPCS: 97022; 97110 ==

== ENCOUNTER → 2022-11-22 10:31 | Outpatient (BNVA) | payer OTHER, SELFPAY | PROVIDERS: Visit Provider Podiatrist Foot & Ankle Surgery | DX: E11.42 Type 2 diabetes mellitus with diabetic polyneuropathy (principal); M25.871 Other specified joint disorders, right ankle and foot; M20.41 Other hammer toe(s) (acquired), right foot; M20.42 Other hammer toe(s) (acquired), left foot; Z79.4 Long term (current) use of insulin; M18.11 Unilateral primary osteoarthritis of first carpometacarpal joint, right hand; Z98.890 Other specified postprocedural states | CPT/HCPCS: 99024; 99213; 99214 ==

== ENCOUNTER 2022-12-14 06:00 | Outpatient (RCR) | payer OTHER, SELFPAY | END 2023-01-13 23:59 | disposition home or self-care (01) | LOC: SOT 06:00 | PROVIDERS: Visit Provider Student in an Organized Health Care Education/Training Program | DX: Z47.89 Encounter for other orthopedic aftercare (principal) | CPT/HCPCS: 97022; 97110; 97140 ==

== ENCOUNTER 2022-12-28 10:41 | Outpatient (RCR) | payer OTHER, SELFPAY | END 2023-01-13 23:59 | disposition home or self-care (01) | LOC: SPT 10:41 | PROVIDERS: Visit Provider Nurse Practitioner | DX: M62.81 Muscle weakness (generalized) (principal) | CPT/HCPCS: 97110; 97161 ==

== ENCOUNTER 2023-01-14 06:00 | Outpatient (RCR) | payer OTHER, SELFPAY | END 2023-02-12 23:59 | disposition home or self-care (01) | LOC: SPT 06:00 | PROVIDERS: Visit Provider Nurse Practitioner | DX: M62.81 Muscle weakness (generalized) (principal) | CPT/HCPCS: 97110 ==

== ENCOUNTER 2023-02-13 06:00 | Outpatient (RCR) | payer OTHER, SELFPAY | END 2023-03-15 23:59 | disposition home or self-care (01) | LOC: SPT 06:00 | PROVIDERS: Visit Provider Nurse Practitioner | DX: M62.81 Muscle weakness (generalized) (principal) | CPT/HCPCS: 97110 ==

== ENCOUNTER → 2023-03-01 11:28 | Outpatient (BNVA) | payer OTHER, SELFPAY | PROVIDERS: Visit Provider Podiatrist Foot & Ankle Surgery | DX: E11.42 Type 2 diabetes mellitus with diabetic polyneuropathy (principal); Z89.411 Acquired absence of right great toe; M25.871 Other specified joint disorders, right ankle and foot; L60.3 Nail dystrophy; M72.2 Plantar fascial fibromatosis; Z79.4 Long term (current) use of insulin | CPT/HCPCS: 11721 ==

== ENCOUNTER 2023-03-11 14:37 | Inpatient (IN) | payer OTHER, SELFPAY ==
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
[2023-03-11 14:53] VITALS: BP 138/81; RESP 18; TEMP 36.8; O2SAT 98; BMI 26.6
[2023-03-11 15:01] LABS: Basophils # 0.1 10^3/uL (0.0-0.1); Basophils % 0.8 %; Eosinophils # 0.2 10^3/uL (0.0-0.8); Eosinophils % 2.3 %; Hematocrit 37.3 % (37-53); Lymphocytes # 0.9 10^3/uL (0.8-4.8); Lymphocytes % 13.5 %; Mean Corpuscular Hemoglobin 22.2 pg (27-33); Mean Corpuscular Volume 73.9 fl (82-101); Mean Platelet Volume 10.4 fL (7.4-10.4); Monocytes # 0.7 10^3/uL (0.2-0.9); Monocytes % 9.9 %; Neutrophils # 4.83 10^3/uL (1.8-7.7); Neutrophils % 72.6 %; Nucleated Red Blood Cells % 0 %; Platelet Count 158 10^3/cmm (157-399); Red Blood Count 5.05 10^6/uL (3.85-5.65); Red Cell Distribution Width 20.4 % (12.1-15.1); White Blood Count 6.65 10^3/uL (3.29-11.43)
[2023-03-11] MEDS: iohexol 350 mg/mL 500 mL Btl (per mL) IV (15:18)
[2023-03-11 15:27] LABS: Alanine Aminotransferase 12 U/L (0-41); Albumin Level 3.9 g/dL (3.5-5.2); Alkaline Phosphatase 131 U/L (40-130); Anion Gap 16.1 (5-19); Aspartate Amino Transferase 23 U/L (0-40); Blood Urea Nitrogen 31 mg/dL (8-23); Calcium 9.7 mg/dL (8.5-10.5); Carbon Dioxide 32 mmol/L (22-29); Chloride 94 mmol/L (98-107); Globulin 3.6 g/dL (1.3-4.6); Glomerular Filtration Rate 74.8 mL/min (90-130); Glucose 138 mg/dL (65-115); Osmolality Calculated 297 mOsm/kg (285-295); Potassium 3.1 mmol/L (3.5-5.1); Sodium 139 mmol/L (136-145); Total Bilirubin 2.5 mg/dL (0.15-1.2); Total Protein 7.5 g/dL (6.6-8.7)
[2023-03-11 15:31] LABS: Blood Urine Neg (Negative); Glucose Urine UA Norm (Normal); Ketones Urine Negative (Negative); Nitrate Urine Positive (Negative); Protein Urine 1+ (Negative); Urine Appearance Clear (CLEAR); Urine Color Dark Yellow (Yellow); pH Urine 6 (5-7)
[2023-03-11 15:32] LABS: Add Urine Microscopic? YES; Bacteria Urine TRACE /hpf; Bilirubin Urine 1+ (Negative); Leukocyte Esterase Urine Negative (Negative); RBC Urine RARE /hpf (0-2); Squamous Epithelial Cell Urine 0-4 /hpf (0-5); Urobilinogen Urine 1 mg/dL (Negative); WBC Urine 0-4 /hpf (0-5)
--- NOTE | 2023-03-11 16:07 | PC.NURSE ---
removed patient's C-collar at [address] Perrin verbalized that his CT neck was good.
--- NOTE | 2023-03-11 16:16 | PC.PHAR ---
WENT OVER MEDICATION LIST WITH PATIENT. THE FOLLOWING MEDICATIONS HAD CHANGES: BUMETANIDE 1 MG CHANGED TO 2 MG TWICE DAILY. POTASSIUM CHL 20 MEQ CHANGED TO 2 TABLETS IN AM, 3 TABLETS AT NOON, AND 2 TABLETS IN PM. FAXED [facility] FOR VERIFICATION AND WILL UPDATE
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
--- NOTE | 2023-03-11 16:39 | XRR_ITS ---
PROCEDURE INFORMATION: Exam: XR Left Hip Exam date and time: 03/11/2023 5:06 PM Age: 67 years old Clinical indication: Hip pain post fall TECHNIQUE: Imaging protocol: Radiologic exam of the left hip. Views: 2 or 3 views hip with pelvis when performed. COMPARISON: CT chest abdpel w/*[id number] 03/11/2023 3:08 PM FINDINGS: Bones/joints: Unremarkable. No acute fracture. Soft tissues: Unremarkable. XR/XR hip LT 2-3V wo/w pel* [id number] IMPRESSION: No acute findings.
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
[2023-03-11 16:48] LABS: Partial Thromboplastin Time 38.1 SECONDS (23.9-36.7)
[2023-03-11 17:10] VITALS: RESP 16
[2023-03-11] MEDS: morphine 4 mg/mL SDV 1 mL IVP (17:10)
[2023-03-11 17:36] LABS: Ammonia 33 umol/L (16-60)
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
--- NOTE | 2023-03-11 18:26 | ECG_ITS ---
[facility] Test Date: 2023-03-11 Pat Name: Arnie Coombs Department: Room: 268 Gender: Male Entry Level Marketing Assistant: : 1955 Requested By: Trevor Pearl Order Number: [id number] Art MD: Naye Rosario M.D. Measurements Intervals Comfort Rate: 72 P: 0 ID: 0 QRS: 270 QRSD: 198 T: 90 QT: 482 QTc: 530 Interpretive Statements ELECTRONIC VENTRICULAR PACEMAKER ABNORMAL RHYTHM ECG Compared to ECG 01/02/2022 04:59:51 No significant changes Electronically Signed On 03-11-2023 22:23:47 CDT by Naye Rosario M.D. [email or web address]
[2023-03-11 19:08] LABS: Troponin(5th) Baseline 33 ng/L (0-15)
[2023-03-11 19:20] LABS: NT Pro B Type Natriuretic Pept 2868 pg/mL (0-125)
[2023-03-11] MEDS: potassium chloride ER 20 mEq Tablet 40 MEQ PO (20:37)
[2023-03-11 21:18] VITALS: BP 117/72; PULSE 62; RESP 19; TEMP 36.3; O2SAT 93
[2023-03-11 21:35] VITALS: RESP 17
[2023-03-11] MEDS: morphine 4 mg/mL SDV 1 mL 2 MG IVP (21:35)
[2023-03-11] MEDS: cefTRIAXone 1,000 MG in sodium chloride 0.9% (plus) 50 ML 100 MG IV (21:40)
[2023-03-11] MEDS: dexamethasone 10 mg/mL INJ 6 MG IVP (21:41)
[2023-03-11] MEDS: dextrose 5%-sod chloride 0.9% 1,000 ML 100 ML IV (21:42)
[2023-03-11] MEDS: pantoprazole 40 mg SDV IVP (21:44)
[2023-03-11] MEDS: insulin glargine 100 units/1 mL 10 UNIT SUBCUT (21:45)
[2023-03-11 21:55] LABS: Glucose Point of Care 130 mg/dL (70-110)
[2023-03-11 22:38] LABS: Estmated Average Glucose 128; Hemoglobin A1C 6.1 % (4.0-6.0)
[2023-03-11 22:46] LABS: Chol HDL Ratio 4.22 mg/dL (1.0-5.00); Cholesterol 114 mg/dL (0-200); Creatine Phosphokinase 82 U/L (39-308); HDL Cholesterol 27 mg/dL (60-100); LDL Cholesterol Calculated 71 mg/dL (50-129); LDL HDL Ratio 2.63 RATIO (0.00-3.22); Triglycerides 78 mg/dL (0-150)
[2023-03-11 22:47] LABS: Alcohol Level < 10 mg/dL (0-10)
[2023-03-11 22:53] LABS: Troponin 5 2HR 33.59 ng/L (0-15)
[2023-03-11 22:55] LABS: Troponin 5 2HR Delta 0.59 ABS# (0-10)
[2023-03-11 22:59] LABS: Hepatitis A Antibody IgM Non-Reactive (Nonreactive); Hepatitis B Core IgM Non-Reactive (Nonreactive); Hepatitis B Surface Antigen Non-Reactive (Nonreactive); Hepatitis C Virus Antibody Non-Reactive (Nonreactive)
[2023-03-11 23:01] LABS: Thyroid Stimulating Hormone 1.17 uIU/mL (0.27-4.20)
[2023-03-11 23:40] VITALS: BP 99/46; PULSE 67; RESP 16; TEMP 36.7; O2SAT 98
[2023-03-11 23:47] VITALS: O2SAT 95
[2023-03-12] VITALS (14 sets, daily range): BP systolic 126–134; BP diastolic 67–76; PULSE 59–72; RESP 16–18; TEMP 36.5–36.9; O2SAT 91–99
[2023-03-12 00:53] LABS: Gamma Glutamyl Transferase 87 U/L (8-61)
[2023-03-12 01:32] LABS: Basophils % 0.1 %; Eosinophils % 0.1 %; Hematocrit 37.2 % (37-53); Lymphocytes # 0.2 10^3/uL (0.8-4.8); Lymphocytes % 2.6 %; Mean Corpuscular HGB Conc 30.1 g/dL (30-55); Mean Corpuscular Hemoglobin 22.6 pg (27-33); Mean Corpuscular Volume 75.2 fl (82-101); Mean Platelet Volume 10.4 fL (7.4-10.4); Monocytes # 0.2 10^3/uL (0.2-0.9); Monocytes % 2.6 %; Neutrophils # 7.47 10^3/uL (1.8-7.7); Neutrophils % 94.1 %; Nucleated Red Blood Cells % 0 %; Platelet Count 137 10^3/cmm (157-399); Red Blood Count 4.95 10^6/uL (3.85-5.65); Red Cell Distribution Width 20.6 % (12.1-15.1); White Blood Count 7.95 10^3/uL (3.29-11.43)
[2023-03-12] MEDS: morphine 4 mg/mL SDV 1 mL 2 MG IVP ×4 (01:41→20:11)
[2023-03-12 02:04] LABS: INR 1.34 (0.8-1.2)
[2023-03-12 02:13] LABS: Troponin 5 6HR 35.55 ng/L (0-15)
[2023-03-12 02:15] LABS: Ammonia 72 umol/L (16-60)
--- NOTE | 2023-03-12 02:16 | PC.NURSE ---
pt morphine pt morphine scan did not save. pt morpine dose was witnessed my pt and by shukri meyer lpn. both times. both times 2mg were given. 2 mg were wasted.
[2023-03-12 02:17] LABS: Alanine Aminotransferase 14 U/L (0-41); Albumin Level 3.7 g/dL (3.5-5.2); Alkaline Phosphatase 120 U/L (40-130); Anion Gap 12.7 (5-19); Aspartate Amino Transferase 22 U/L (0-40); Blood Urea Nitrogen 29 mg/dL (8-23); Calcium 9.6 mg/dL (8.5-10.5); Carbon Dioxide 33 mmol/L (22-29); Chloride 99 mmol/L (98-107); Globulin 3.2 g/dL (1.3-4.6); Glomerular Filtration Rate 74.8 mL/min (90-130); Glucose 218 mg/dL (65-115); Magnesium 2.1 mg/dL (1.7-2.3); Osmolality Calculated 304 mOsm/kg (285-295); Phosphorus 2.3 mg/dL (2.5-4.5); Potassium 3.7 mmol/L (3.5-5.1); Sodium 141 mmol/L (136-145); Total Bilirubin 2.7 mg/dL (0.15-1.2); Total Protein 6.9 g/dL (6.6-8.7)
[2023-03-12 02:18] LABS: Troponin 5 6HR Delta 2.55 ng/L (0-12)
--- NOTE | 2023-03-12 06:00 | USR_ITS ---
PROCEDURE INFORMATION: Exam: US Duplex Bilateral Extracranial Arteries; Complete; Carotid Arteries Exam date and time: 03/12/2023 6:22 AM Age: 67 years old Clinical indication: Syncope and collapse TECHNIQUE: Imaging protocol: Real-time duplex ultrasound scan of the bilateral extracranial arteries combining rome scale, color Doppler and spectral waveform analysis with image documentation. Complete exam. Exam focused on the carotid arteries. COMPARISON: CT facial bones wo con* [id number] 03/11/2023 4:47 PM FINDINGS: Right common carotid artery: Unremarkable. No occlusion or stenosis. Waveforms are normal. Right internal carotid artery: Unremarkable. No occlusion or stenosis. Waveforms are normal. Right ICA/CCA ratio: Within normal limits. Right external carotid artery: No stenosis in the origin. Right vertebral artery: Unremarkable. Antegrade flow. Left common carotid artery: Unremarkable. No occlusion or stenosis. Waveforms are normal. Left internal carotid artery: Unremarkable. No occlusion or stenosis. Waveforms are normal. Left ICA/CCA ratio: Within normal limits. Left external carotid artery: No stenosis in the origin. Left vertebral artery: Unremarkable. Antegrade flow. US/CV carotid duplex BI* [id number] IMPRESSION: No carotid arterial stenosis. REFERENCES: SRU CRITERIA. The degree of internal carotid artery stenosis is based on criteria defined by the Society of Radiologists in Ultrasound (SRU). Normal is no stenosis. Mild is less than 50% stenosis. Moderate is 50-69% stenosis. Severe is greater than 69% stenosis to near occlusion. Near occlusion is a markedly narrowed lumen. Total occlusion is no detectable patent lumen.
--- NOTE | 2023-03-12 06:00 | USCV_ITS ---
Arnie Coombs Age: 67 Gender: M : 1955 Exam Date: 03/12/2023 07:32 Ordering Phys: Trevor Pearl MD Technologist: Nick Mccarty [place] [facility] [place]: sync[place] BP: 134 / 72 HR: 51 Rhythm: Sinus Technical Quality: Adequate MEASUREMENTS (Male / Female) Normal Values 2D ECHO LVOT Diameter 2.0 cm LV Ejection Fraction MOD 2C 20.8 % LV Ejection Fraction 2C AL 22.2 % LA Diameter 4.5 cm LA Width 4.3 cm LA Height 7.7 cm RA Width 6.7 cm RA Height 6.7 cm Aorta at Sinotubular Diameter 2.3 cm IVC Diameter 2.7 cm M-MODE Aortic Annulus Diameter 2.6 cm LA Ao Ratio MM 1.5 DOPPLER AV Peak Velocity 186.0 cm/s LVOT Peak Velocity 80.0 cm/s AV Area Cont Eq vti 1.3 cm squared AV Area Cont Eq pk 1.4 cm squared MV Peak Velocity 126.0 cm/s MV Area PHT 5.1 cm squared Mitral E to A Ratio 3.1 MV E' Velocity 50.5 cm/s Mitral E to MV E' Ratio 15.8 Mitral E to LV E' Lateral Ratio 15.8 Mitral E to LV E' Septal Ratio 15.8 TR Peak Velocity 376.9 cm/s TR Peak Gradient 56.8 mmHg TR Mean Velocity 285.9 cm/s TR Mean Gradient 34.9 mmHg TR Velocity Time Integral 112.2 cm Right Atrial Pressure 8.0 mmHg Pulmonary Artery Systolic Pressu 64.8 mmHg PV Peak Velocity 96.3 cm/s RV Acceleration Time 0.1 s RV Ejection Time 0.3 s RV AcT/ET 0.3 FINDINGS Left Ventricle Left ventricle is normal size. LV systolic function is severely reduced with EF of 20-25%. Severe global hypokinesis seen with akinetic apical wall. Right Ventricle Moderate to severely hypokinetic. Pacemaker lead is seen Right Atrium Dilated Left Atrium Dilated Mitral Valve Mild mitral annular calcification. Moderate mitral regurgitation. Aortic Valve Aortic valve is thickened. No significant stenosis. Tricuspid Valve Mild tricuspid regurgitation. RVSP is 55 to 60 mmHg. This is consistent with moderate pulmonary hypertension Pulmonic Valve Mild pulmonic regurgitation Pericardium Normal Aorta Normal in size IVC Dilated CONCLUSIONS LV systolic function is severely reduced with EF of 20 to 25%. Moderate to severely hypokinetic RV Pacemaker lead is seen. Biatrial dilation Moderate mitral regurgitation Mild tricuspid regurgitation. Moderate pulmonary hypertension Mild pulmonic regurgitation IVC is dilated Compared to prior echocardiogram from 2017, LV systolic function has significantly decreased and is severely reduced now with RV dysfunction as well. Veto Navas MD (Electronically Signed) Final Date: 12 March 2023 10:47 S
[2023-03-12 06:55] LABS: Amphetamines Screen Urine Negative (Negative); Barbiturates Screen Urine Negative (Negative); Benzodiazepines Screen Urine Negative (Negative); Cocaine Screen Urine Negative (Negative); Opiate Screen Urine Negative (Negative); PCP Screen Urine Negative (Negative); THC Screen Urine Negative (Negative)
[2023-03-12 06:55] LABS: Glucose Point of Care 143 mg/dL (70-110)
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
[2023-03-12] MEDS: allopurinol 100 mg Tablet PO ×2 (08:53→17:52)
[2023-03-12] MEDS: cholecalciferol (vitamin D3) 1,000 unit Tablet 2000 UNIT PO (08:53)
[2023-03-12] MEDS: dextrose 5%-sod chloride 0.9% 1,000 ML 100 ML IV (08:54)
[2023-03-12] MEDS: insulin lispro 100 unit/1 mL SUBCUT ×3 (08:58→17:53)
[2023-03-12] MEDS: potassium chloride ER 20 mEq Tablet 40 MEQ PO ×2 (09:00→22:05)
[2023-03-12] MEDS: budesonide 0.5 mg/2 mL Neb INHALATION ×2 (10:08→20:06)
[2023-03-12] MEDS: ipratropium-albuterol 3 mL Neb INHALATION ×2 (10:10→20:07)
[2023-03-12] MEDS: lactulose oral liq 20 gm/30 mL UDC PO ×2 (10:45→22:06)
[2023-03-12 11:09] LABS: Cortisol Random 6.57 ug/dL (2.47-19.5)
--- NOTE | 2023-03-12 12:19 | PC.OT ---
OT orders received to evaluation and treat. OT spoke with nursing. Pt. in TLSO brace with surgery scheduled on Tuesday. OT evaluation to be attempted after surgery per nursing.
[2023-03-12] MEDS: potassium chloride ER 20 mEq Tablet 60 MEQ PO (13:08)
[2023-03-12 13:55] LABS: Glucose Point of Care 160 mg/dL (70-110)
[2023-03-12] MEDS: midodrine 5 mg TABLET PO ×2 (15:38→22:04)
[2023-03-12 17:04] LABS: Glucose Point of Care 220 mg/dL (70-110)
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
[2023-03-12] MEDS: prazosin 1 mg Capsule 2 MG PO (17:52)
[2023-03-12] MEDS: pantoprazole 40 mg SDV IVP (20:51)
[2023-03-12] MEDS: dexamethasone 10 mg/mL INJ 6 MG IVP (20:51)
[2023-03-12 21:20] LABS: Glucose Point of Care 195 mg/dL (70-110)
[2023-03-12] MEDS: cefTRIAXone 1,000 MG in sodium chloride 0.9% (plus) 50 ML 100 MG IV (22:05)
[2023-03-12] MEDS: insulin glargine 100 units/1 mL 10 UNIT SUBCUT (22:06)
[2023-03-13] VITALS (16 sets, daily range): BP systolic 114–137; BP diastolic 65–86; PULSE 60–78; RESP 14–19; TEMP 36.4–36.9; O2SAT 93–99
[2023-03-13 04:32] LABS: Basophils % 0.1 %; Hematocrit 35.1 % (37-53); Lymphocytes # 0.2 10^3/uL (0.8-4.8); Lymphocytes % 2.6 %; Mean Corpuscular HGB Conc 29.6 g/dL (30-55); Mean Corpuscular Hemoglobin 22.3 pg (27-33); Mean Corpuscular Volume 75.3 fl (82-101); Mean Platelet Volume 10.5 fL (7.4-10.4); Monocytes # 0.4 10^3/uL (0.2-0.9); Monocytes % 3.9 %; Neutrophils % 92.5 %; Nucleated Red Blood Cells % 0 %; Platelet Count 118 10^3/cmm (157-399); Red Blood Count 4.66 10^6/uL (3.85-5.65); Red Cell Distribution Width 20.5 % (12.1-15.1); White Blood Count 9.19 10^3/uL (3.29-11.43)
[2023-03-13 05:01] LABS: Alanine Aminotransferase 14 U/L (0-41); Albumin Level 3.7 g/dL (3.5-5.2); Alkaline Phosphatase 109 U/L (40-130); Anion Gap 11.4 (5-19); Aspartate Amino Transferase 22 U/L (0-40); Blood Urea Nitrogen 23 mg/dL (8-23); Calcium 9.9 mg/dL (8.5-10.5); Carbon Dioxide 29 mmol/L (22-29); Chloride 100 mmol/L (98-107); Globulin 3.3 g/dL (1.3-4.6); Glomerular Filtration Rate 112.8 mL/min (90-130); Glucose 174 mg/dL (65-115); Magnesium 2.4 mg/dL (1.7-2.3); Osmolality Calculated 290 mOsm/kg (285-295); Phosphorus 2.8 mg/dL (2.5-4.5); Potassium 4.4 mmol/L (3.5-5.1); Sodium 136 mmol/L (136-145)
[2023-03-13] MEDS: morphine 4 mg/mL SDV 1 mL 2 MG IVP ×3 (05:15→14:36)
[2023-03-13] MEDS: potassium chloride ER 20 mEq Tablet 40 MEQ PO ×2 (05:20→21:58)
[2023-03-13] MEDS: benzonatate 100 mg Capsule 200 MG PO (05:20)
--- NOTE | 2023-03-13 05:47 | PC.NURSE ---
Charge nurse and patient care nurse assisted patient into back brace. Patient tolerated well.
[2023-03-13 06:46] LABS: Glucose Point of Care 192 mg/dL (70-110)
[2023-03-13] MEDS: budesonide 0.5 mg/2 mL Neb INHALATION ×2 (07:19→19:55)
[2023-03-13] MEDS: ipratropium-albuterol 3 mL Neb INHALATION ×2 (07:19→19:55)
[2023-03-13] MEDS: midodrine 5 mg TABLET PO ×3 (08:57→21:57)
[2023-03-13] MEDS: cholecalciferol (vitamin D3) 1,000 unit Tablet 2000 UNIT PO (08:57)
[2023-03-13] MEDS: insulin lispro 100 unit/1 mL SUBCUT ×3 (08:57→17:55)
[2023-03-13] MEDS: allopurinol 100 mg Tablet PO ×2 (08:57→17:55)
[2023-03-13 09:03] LABS: Ammonia 52 umol/L (16-60)
--- NOTE | 2023-03-13 09:30 | P.PN_ITS ---
Subjective Subjective: Patient lying flat with TLSO brace on reports being very uncomfortable. Patient was unable to tolerate standing to obtain radiographs in the brace yesterday. States he has back and leg pain. He will attempt another x-ray today with the brace but if he is not able to tolerate that we will not force it. He denies loss of bowel or bladder control. Continues to move both lower extremities but is uncomfortable and painful for him. Vitals/I&O/Wt Last Vital Signs Temp 97.6 F 03/13/23 07:34 Pulse 63 03/13/23 07:34 Resp 16 03/13/23 07:34 BP 119/76 03/13/23 07:34 Pulse Ox 99 03/13/23 07:34 O2 Del Method Nasal Cannula 03/13/23 07:34 O2 Flow Rate 4 03/13/23 07:19 03/12/23 03/13/23 03/13/23 22:59 06:59 14:59 Intake Total 50 / 1410 Output Total 500 / 925 300 / 1225 Balance -450 / 485 -300 / 185 Weight last 48 hrs Weight 180 lb Physical Exam Narrative: Patient is alert and orient x3 has good general appearance normal mood and affect. Obvious acute distress. Ecchymosis throughout the face from previous injury. Tender with palpation in the lumbar spine. 4/5 strength in both lower extremities he appears to have good sensation light touch down both lower extremities. Calves are supple no medial thigh tenderness. Is wiggle all digits. Dorsiflex and plantarflex both feet and ankles. Normal sensation light touch in all dermatomal layers to the thoracolumbar spine. HENMT: COMMON NORMALS: normocephalic HEAD & SCALP: normocephalic Resp: COMMON NORMALS: normal respiratory effort Cardio: COMMON NORMALS: regular rate RATE: regular rate GI: COMMON NORMALS: Soft to palpation and non-tender PALPATION: Yes Soft to palpation : COMMON NORMALS: Yes no CVA tenderness BLADDER/KIDNEY EXAM: Yes no CVA tenderness Back/Pelvis: COMMON NORMALS: no CVA tenderness Psych: COMMON NORMALS: mental status grossly normal and cooperative Data 03/13/23 04:04 03/13/23 Unknown A&P Assessment and plan (1) Closed L3 vertebral fracture: We will attempt to obtain a standing AP and lateral radiograph in the TLSO brace to get a better assessment of the L3 burst fracture. If the patient is not able to tolerate that we can discontinue. I have him in bedrest. Discussed operative intervention again with him which we will continue to try and treat conservatively while the medical team continues to medically optimize the mandie ent. We will keep him n.p.o. after midnight to reassess in the a.m. his condition. Discussed with him an L1-L5 instrumented fusion with decompression L3-4. Encourage incentive spirometer for pulmonary toilet. Continue SCDs for DVT prophylaxis. More than 50% of the time spent with the patient today involved coordination of care, counseling and discussion of conservative versus surgical treatment options. Total amount of time spent with the patient was 31 minutes. Attestations Medical Necessity Statement*: Defer to medical team Coding Level of Care Code Acute Code for Chg Fwd Diagnoses Closed L3 vertebral fracture S32.039A Time Spent (min) 31
[2023-03-13] MEDS: baclofen 10 mg Tablet 5 MG PO (10:52)
[2023-03-13] MEDS: lactulose oral liq 20 gm/30 mL UDC PO ×2 (10:52→22:11)
[2023-03-13 11:33] LABS: Glucose Point of Care 175 mg/dL (70-110)
--- NOTE | 2023-03-13 12:23 | PC.PT ---
Hold per physician due to additional imaging of spine needing to be obtained and high liklihood of surgery.
[2023-03-13] MEDS: potassium chloride ER 20 mEq Tablet 60 MEQ PO (12:49)
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
[2023-03-13 17:15] LABS: Glucose Point of Care 143 mg/dL (70-110)
[2023-03-13] MEDS: prazosin 1 mg Capsule 2 MG PO (17:55)
[2023-03-13] MEDS: acetaminophen 325 mg Tablet 650 MG PO (18:02)
[2023-03-13] MEDS: HYDROmorphone 1 mg/mL INJ 1 mL 0.5 MG IVP (18:32)
[2023-03-13 20:56] LABS: Glucose Point of Care 124 mg/dL (70-110)
[2023-03-13] MEDS: pantoprazole 40 mg SDV IVP (21:07)
[2023-03-13] MEDS: dexamethasone 10 mg/mL INJ 6 MG IVP (21:07)
[2023-03-13] MEDS: insulin glargine 100 units/1 mL 10 UNIT SUBCUT (21:55)
[2023-03-13] MEDS: cefTRIAXone 1,000 MG in sodium chloride 0.9% (plus) 50 ML 100 MG IV (21:58)
[2023-03-14] VITALS (16 sets, daily range): BP systolic 119–134; BP diastolic 64–77; PULSE 41–84; RESP 14–20; TEMP 36.4–36.7; O2SAT 92–98
[2023-03-14] MEDS: HYDROmorphone 1 mg/mL INJ 1 mL 0.5 MG IVP ×3 (02:18→14:55)
[2023-03-14 04:14] LABS: Glucose Point of Care 150 mg/dL (70-110)
[2023-03-14] MEDS: potassium chloride ER 20 mEq Tablet 40 MEQ PO (05:31)
[2023-03-14] MEDS: benzonatate 100 mg Capsule 200 MG PO (05:32)
[2023-03-14] MEDS: baclofen 10 mg Tablet 5 MG PO (05:32)
[2023-03-14 05:50] LABS: Basophils % 0.1 %; Hematocrit 37.4 % (37-53); Lymphocytes # 0.3 10^3/uL (0.8-4.8); Lymphocytes % 2.2 %; Mean Corpuscular HGB Conc 28.9 g/dL (30-55); Mean Corpuscular Hemoglobin 22.1 pg (27-33); Mean Corpuscular Volume 76.5 fl (82-101); Mean Platelet Volume 11.3 fL (7.4-10.4); Monocytes # 0.4 10^3/uL (0.2-0.9); Monocytes % 3.3 %; Neutrophils # 10.85 10^3/uL (1.8-7.7); Neutrophils % 93.7 %; Nucleated Red Blood Cells % 0 %; Platelet Count 133 10^3/cmm (157-399); Red Blood Count 4.89 10^6/uL (3.85-5.65); Red Cell Distribution Width 20.8 % (12.1-15.1); White Blood Count 11.57 10^3/uL (3.29-11.43)
[2023-03-14 06:00] LABS: INR 1.33 (0.8-1.2)
[2023-03-14 06:10] LABS: Alanine Aminotransferase 17 U/L (0-41); Albumin Level 3.8 g/dL (3.5-5.2); Alkaline Phosphatase 112 U/L (40-130); Anion Gap 15.1 (5-19); Aspartate Amino Transferase 21 U/L (0-40); Blood Urea Nitrogen 32 mg/dL (8-23); Calcium 9.8 mg/dL (8.5-10.5); Carbon Dioxide 26 mmol/L (22-29); Chloride 101 mmol/L (98-107); Globulin 3.5 g/dL (1.3-4.6); Glomerular Filtration Rate 96.7 mL/min (90-130); Glucose 148 mg/dL (65-115); Magnesium 2.6 mg/dL (1.7-2.3); Osmolality Calculated 292 mOsm/kg (285-295); Phosphorus 3.7 mg/dL (2.5-4.5); Potassium 6.1 mmol/L (3.5-5.1); Sodium 136 mmol/L (136-145); Total Bilirubin 3.6 mg/dL (0.15-1.2); Total Protein 7.3 g/dL (6.6-8.7)
--- NOTE | 2023-03-14 06:33 | ECG_ITS ---
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 Measurements Intervals [place] Rate: 61 P: 0 TN: 0 QRS: 255 QRSD: 174 T: 99 QT: 483 QTc: 487 Interpretive Statements ELECTRONIC VENTRICULAR PACEMAKER Compared to ECG 03/11/2023 18:26:35 No significant changes Electronically Signed On 03-14-2023 11:10:41 CDT by Veto Navas M.D. [email or web address].[email or web address]/store/[id number]
[2023-03-14 06:53] LABS: Glucose Point of Care 177 mg/dL (70-110)
--- NOTE | 2023-03-14 08:10 | PC.OT ---
HOLD OT EVALUATION SECONDARY TO SCHEDULED STRESS TEST TODAY FOR POSSIBLE SURGERY.
[2023-03-14] MEDS: cholecalciferol (vitamin D3) 1,000 unit Tablet 2000 UNIT PO (08:50)
[2023-03-14] MEDS: lactulose oral liq 20 gm/30 mL UDC PO ×2 (08:50→23:36)
[2023-03-14] MEDS: midodrine 5 mg TABLET PO ×3 (08:50→20:56)
[2023-03-14] MEDS: allopurinol 100 mg Tablet PO ×2 (08:50→17:57)
--- NOTE | 2023-03-14 08:50 | PC.NURSE ---
Stress test Patient brought back for stress test. Pt noted to be coughing a lot, having difficulty clearing secretions. Nurse listened to lung sounds, audible coarse wheezes throughout. Diminished lung sounds throughout left side. Dr. Navas notified of lung sounds and ordered to hold off on stress test for today.
[2023-03-14] MEDS: sodium polystyrene sulfonate 15 gm/60 mL Btl PO (08:51)
[2023-03-14] MEDS: insulin lispro 100 unit/1 mL SUBCUT ×2 (08:51→13:02)
[2023-03-14] MEDS: ipratropium-albuterol 3 mL Neb INHALATION ×3 (09:12→20:19)
[2023-03-14] MEDS: budesonide 0.5 mg/2 mL Neb INHALATION ×2 (09:13→20:19)
[2023-03-14 10:23] LABS: Anion Gap 15.5 (5-19); Blood Urea Nitrogen 34 mg/dL (8-23); Carbon Dioxide 25 mmol/L (22-29); Chloride 102 mmol/L (98-107); Glomerular Filtration Rate 96.7 mL/min (90-130); Glucose 148 mg/dL (65-115); Osmolality Calculated 292 mOsm/kg (285-295); Sodium 136 mmol/L (136-145)
[2023-03-14] MEDS: FUROsemide 10 mg/mL SDV 4mL 40 MG IVP ×2 (10:25→19:50)
[2023-03-14 10:46] LABS: Potassium 6.5 mmol/L (3.5-5.1)
--- NOTE | 2023-03-14 11:05 | ECG_ITS ---
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 Measurements Intervals [place] Rate: 60 P: 0 VT: 0 QRS: -88 QRSD: 174 T: 105 QT: 483 QTc: 483 Interpretive Statements ELECTRONIC VENTRICULAR PACEMAKER Compared to ECG 03/14/2023 08:02:47 No significant changes Electronically Signed On 03-14-2023 11:08:56 CDT by Veto Navas M.D. [email or web address].[employer]/store/[id number]
[2023-03-14] MEDS: calcium gluconate 0.9% NaCL 1 GM/50 ML PREMIX IV (11:17)
[2023-03-14] MEDS: insulin regular-human 10 UNIT in SYRINGE 1 EACH IVP (11:18)
[2023-03-14] MEDS: dextrose 50% syringe 50 mL IVP (11:18)
[2023-03-14 11:55] LABS: Glucose Point of Care 149 mg/dL (70-110)
--- NOTE | 2023-03-14 12:07 | ECG_ITS ---
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 Measurements Intervals [place] Rate: 81 P: 0 [place]: 0 QRS: 127 QRSD: 218 T: -56 QT: 471 QTc: 549 Interpretive Statements UNCERTAIN IRREGULAR RHYTHM ELECTRONIC VENTRICULAR PACEMAKER -- CONTOUR ANALYSIS BASED ON INTRINSIC RHYTHM INTRAVENTRICULAR CONDUCTION DELAY [130+ ms QRS DURATION] POSSIBLE RIGHT VENTRICULAR HYPERTROPHY [SOME/ALL OF: PROMINENT R IN V1, LATE TRANSITION, RAD, CHET, SSS] ANTEROLATERAL MYOCARDIAL INFARCTION , OF INDETERMINATE AGE [40+ ms Q WAVE IN I/aVL/V3-V6] Compared to ECG 03/14/2023 11:05:44 Intraventricular conduction delay now present Myocardial infarct finding now present Electronically Signed On 03-14-2023 15:14:57 CDT by Veto Navas M.D. [email or web address].[employer]/store/OM/[id number]
--- NOTE | 2023-03-14 12:28 | PC.SOCIAL ---
IMM Update pg 2 of IMM updated and reviewed w/ patient. Copy provided and Copy dated, initialed and placed in chart.
[2023-03-14 14:32] LABS: Potassium 5.1 mmol/L (3.5-5.1)
--- NOTE | 2023-03-14 15:28 | CTR_ITS ---
PROCEDURE INFORMATION: Exam: CT Head Without Contrast Exam date and time: 03/14/2023 4:34 PM Age: 67 years old Clinical indication: Altered mental status/memory loss; Additional info: AMS TECHNIQUE: Imaging protocol: Computed tomography of the head without contrast. Radiation optimization: All CT scans at this facility use at least one of these dose optimization techniques: automated exposure control; mA and/or kV adjustment per patient size (includes targeted exams where dose is matched to clinical indication); or iterative reconstruction. REPORTING DATA: Count of CT and Cardiac NM exams in prior 12 months: This patient has received 4 known CTs and 0 known cardiac nuclear medicine studies in the 12 months prior to the current study. COMPARISON: CT head wo con* [id number] 03/11/2023 3:02 PM RADIATION DOSE METRICS: Total DLP (mGy-cm): 1351 FINDINGS: Brain: Mild parenchymal volume loss. No midline shift. No mass, acute infarct, hemorrhage, or extra-axial fluid collection. Mild bilateral periventricular and subcortical white matter hypodensities are present compatible with small-vessel ischemic disease. Cerebral ventricles: No ventriculomegaly. Paranasal sinuses: Visualized sinuses are unremarkable. No fluid levels. Mastoid air cells: Visualized mastoid air cells are well aerated. Bones/joints: Unremarkable. No acute fracture. Soft tissues: Left frontal scalp hematoma. CT/CT head wo con* [id number] IMPRESSION: No acute intracranial abnormality.
--- NOTE | 2023-03-14 15:58 | XRR_ITS ---
PROCEDURE INFORMATION: Exam: XR Chest Exam date and time: 03/14/2023 4:47 PM Age: 67 years old Clinical indication: Shortness of breath; Additional info: SOB TECHNIQUE: Imaging protocol: Radiologic exam of the chest. Views: 1 view. COMPARISON: CT chest abdpel w/*[id number] 03/11/2023 3:08 PM FINDINGS: Tubes, catheters and devices: Pacemaker and ICD in place. Lungs: Pulmonary venous hypertension without edema. Pleural spaces: Unremarkable. No pleural effusion. No pneumothorax. Heart/Mediastinum: Cardiomegaly. Bones/joints: Previous median sternotomy and CABG. XR/XR chest 1V portable [id number] IMPRESSION: 1. Cardiomegaly. 2. Pulmonary venous hypertension without edema.
[2023-03-14 16:04] LABS: Ammonia 30 umol/L (16-60)
[2023-03-14 16:28] LABS: ABG PCO2 40.3 mmHg (35-45); ABG PH Result 7.46 (7.35-7.45); Arterial Blood Gas Hematocrit 33.4 % (42-52); Base Excess ABG 4.3 mmol/L (-2.0-2.0); Blood Gas Allen Test Pos; Blood Gas Operator Identificat glc; Blood Gas Sample Site Radial, right; Blood Gas Sample Type Arterial; HCO3 ABG 28.5 mmol/L (22-26); Oxygen Device NC
--- NOTE | 2023-03-14 16:44 | PC.NURSE ---
Pt noted to have increased agitation, confusion, and telemetry changes. Notified Dr. Pearl. Dilaudid on HOLD, Head CT ordered, and EKG ordered. Pt lays in bed this shift. Dr. Pearl encourages pt to sit in chair.
[2023-03-14 17:24] LABS: Glucose Point of Care 113 mg/dL (70-110)
[2023-03-14 17:37] LABS: C Reactive Protein 7.7 mg/L (0.0-4.9)
[2023-03-14 17:44] LABS: Procalcitonin 0.06 ng/mL (0-0.5)
[2023-03-14] MEDS: prazosin 1 mg Capsule 2 MG PO (17:57)
[2023-03-14] MEDS: morphine 4 mg/mL SDV 1 mL 2 MG IVP ×2 (17:58→23:20)
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
--- NOTE | 2023-03-14 19:03 | ECG_ITS ---
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 Measurements Intervals [place] Rate: 75 P: 0 [place]: 0 QRS: 153 QRSD: 215 T: -49 QT: 490 QTc: 550 Interpretive Statements UNCERTAIN IRREGULAR RHYTHM ELECTRONIC VENTRICULAR PACEMAKER -- CONTOUR ANALYSIS BASED ON INTRINSIC RHYTHM RIGHT BUNDLE BRANCH BLOCK [120+ ms QRS DURATION, UPRIGHT V1, 40+ ms S IN I/aVL/V4/V5/V6] ANTEROLATERAL MYOCARDIAL INFARCTION , OF INDETERMINATE AGE [40+ ms Q WAVE IN I/aVL/V3-V6] MODERATE T-WAVE ABNORMALITY, CONSIDER INFERIOR ISCHEMIA [-0.1+ mV T-WAVE IN II/aVF] Compared to ECG 03/14/2023 14:31:52 Right bundle-branch block now present T-wave abnormality now present Possible ischemia now present Intraventricular conduction delay no longer present Atrial abnormality no longer present Myocardial infarct finding still present Electronically Signed On 03-14-2023 23:31:47 CDT by Veto Navas M.D. [email or web address].[email or web address] centerOrth[facility]/[id number]
[2023-03-14 19:49] LABS: Troponin(5th) Baseline 23 ng/L (0-15)
[2023-03-14] MEDS: potassium chloride ER 20 mEq Tablet PO (19:51)
[2023-03-14] MEDS: aspirin 81 mg EC Tablet PO (19:51)
[2023-03-14 20:17] LABS: Troponin 5 2HR 24.91 ng/L (0-15)
[2023-03-14 20:18] LABS: Troponin 5 2HR Delta 1.91 ABS# (0-10)
[2023-03-14] MEDS: cefTRIAXone 1,000 MG in sodium chloride 0.9% (plus) 50 ML 100 MG IV (20:58)
[2023-03-14 21:00] LABS: Glucose Point of Care 125 mg/dL (70-110)
[2023-03-14] MEDS: insulin glargine 100 units/1 mL 10 UNIT SUBCUT (21:01)
[2023-03-14] MEDS: dexamethasone 10 mg/mL INJ 6 MG IVP (21:12)
[2023-03-14] MEDS: pantoprazole 40 mg SDV IVP (21:12)
--- NOTE | 2023-03-14 21:35 | ECG_ITS ---
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 Measurements Intervals [place] Rate: 69 P: 0 [place]: 0 QRS: -90 QRSD: 174 T: 98 QT: 456 QTc: 491 Interpretive Statements ELECTRONIC VENTRICULAR PACEMAKER Compared to ECG 03/14/2023 20:11:37 Right bundle-branch block no longer present Myocardial infarct finding no longer present T-wave abnormality no longer present Possible ischemia no longer present Electronically Signed On 03-14-2023 23:32:26 CDT by Veto Navas M.D. [id number]
[2023-03-14] MEDS: heparin 5,000 unit/mL INJ 1 mL IV (23:21)
[2023-03-14] MEDS: heparin drip 25,000 UNIT/500 ML PREMIX 24 UNIT IV (23:32)
[2023-03-15] VITALS (10 sets, daily range): BP systolic 110–127; BP diastolic 54–72; PULSE 60–77; RESP 13–18; TEMP 36.3–37; O2SAT 92–100
--- NOTE | 2023-03-15 01:03 | ECG_ITS ---
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 Measurements Intervals [place] Rate: 63 P: 0 NE: 0 QRS: 266 QRSD: 173 T: 95 QT: 483 QTc: 495 Interpretive Statements ELECTRONIC VENTRICULAR PACEMAKER ABNORMAL RHYTHM ECG Compared to ECG 03/14/2023 21:35:25 No significant changes Electronically Signed On 03-15-2023 8:27:30 CDT by Naye Rosario M.D. [email or web address].[facility] center[facility]/store/OM/[id number]
[2023-03-15 01:55] LABS: Basophils % 0.1 %; Eosinophils % 0.3 %; Lymphocytes # 0.2 10^3/uL (0.8-4.8); Lymphocytes % 2.2 %; Mean Corpuscular Hemoglobin 22.5 pg (27-33); Mean Corpuscular Volume 83.2 fl (82-101); Mean Platelet Volume 10.8 fL (7.4-10.4); Monocytes # 0.4 10^3/uL (0.2-0.9); Neutrophils # 9.04 10^3/uL (1.8-7.7); Neutrophils % 92.9 %; Nucleated Red Blood Cells % 0 %; Platelet Count 123 10^3/cmm (157-399); Red Blood Count 4.81 10^6/uL (3.85-5.65); Red Cell Distribution Width 21.5 % (12.1-15.1); White Blood Count 9.73 10^3/uL (3.29-11.43)
[2023-03-15 02:14] LABS: Troponin 5 6HR 24.36 ng/L (0-15)
[2023-03-15 02:17] LABS: Carbon Dioxide 22 mmol/L (22-29)
[2023-03-15 02:18] LABS: Troponin 5 6HR Delta 1.36 ng/L (0-12)
[2023-03-15 02:30] LABS: NT Pro B Type Natriuretic Pept 7416 pg/mL (0-125)
[2023-03-15 02:47] LABS: Alanine Aminotransferase 20 U/L (0-41); Anion Gap 17.8 (5-19); Aspartate Amino Transferase 26 U/L (0-40); Blood Urea Nitrogen 44 mg/dL (8-23); Calcium 10.2 mg/dL (8.5-10.5); Chloride 103 mmol/L (98-107); Globulin 3.3 g/dL (1.3-4.6); Glomerular Filtration Rate 84.4 mL/min (90-130); Glucose 133 mg/dL (65-115); Magnesium 2.6 mg/dL (1.7-2.3); Osmolality Calculated 299 mOsm/kg (285-295); Phosphorus 4.4 mg/dL (2.5-4.5); Potassium 4.8 mmol/L (3.5-5.1); Sodium 138 mmol/L (136-145); Total Bilirubin 3.5 mg/dL (0.15-1.2); Total Protein 6.8 g/dL (6.6-8.7)
[2023-03-15 02:48] LABS: Albumin Level 3.5 g/dL (3.5-5.2); Alkaline Phosphatase 104 U/L (40-130)
[2023-03-15] MEDS: morphine 4 mg/mL SDV 1 mL 2 MG IVP ×4 (04:11→23:09)
[2023-03-15 05:47] LABS: Partial Thromboplastin Time 56.2 SECONDS (23.9-36.7)
[2023-03-15 07:00] LABS: Glucose Point of Care 116 mg/dL (70-110)
--- NOTE | 2023-03-15 07:00 | XRR_ITS ---
PROCEDURE INFORMATION: Exam: XR Chest Exam date and time: 03/15/2023 7:17 AM Age: 67 years old Clinical indication: Shortness of breath; Prior surgery; Surgery date: 6+ months; Surgery type: Cabg, pacemaker; Patient HX: SOB; L3 FX; Assess for anesthesia clearance; HX copd; Low ef; Supine image due to PT condition (lumbar fx) TECHNIQUE: Imaging protocol: Radiologic exam of the chest. Views: 1 view. COMPARISON: CR (CHEST, ) 03/14/2023 4:47 PM FINDINGS: Tubes, catheters and devices: A permanent pacemaker overlies and obscures the left lateral chest and axilla with ventricular and coronary sinus wire leads. Lungs: Unremarkable. No consolidation. Pleural spaces: Unremarkable. No pleural effusion. No pneumothorax. Heart/Mediastinum: The cardiac silhouette is mildly enlarged. Bones/joints: The patient is post sternotomy with surgical clips overlying mediastinum. Cervical fixation hardware is also present. XR/XR chest 1V portable [id number] IMPRESSION: No significant change from the prior study. Cardiomegaly.
--- NOTE | 2023-03-15 07:44 | P.PN_ITS ---
Subjective Subjective: Patient is very confused today will not wear his TLSO brace. Patient is attempting to climb out of bed. Very disoriented. Vitals/I&O/Wt Last Vital Signs Temp 97.6 F 03/15/23 07:21 Pulse 77 03/15/23 07:21 Resp 14 03/15/23 07:21 BP 126/58 03/15/23 07:21 Pulse Ox 99 03/15/23 07:21 O2 Del Method Nasal Cannula 03/15/23 07:21 O2 Flow Rate 2 03/14/23 22:40 03/14/23 03/15/23 03/15/23 22:59 06:59 14:59 Intake Total 170 / 180.1 Output Total 2225 / 2225 550 / 2775 Balance -2055 / -2044.9 -550 / -2594.9 Physical Exam Narrative: Patient is confused patient is not wearing TLSO brace. Moving both lower extremities tender with palpation in his lumbar spine. Patient is attempting to climb out of bed. Feet are warm good cap refill dorsalis pedis posterior tib pulses are palpable. Moving both upper extremities hands warm good cap refill. HENMT: COMMON NORMALS: normocephalic HEAD & SCALP: normocephalic OTHER: Facial ecchymosis from previous fall Resp: COMMON NORMALS: normal respiratory effort Cardio: COMMON NORMALS: regular rate and regular rhythm RATE: regular rate RHYTHM: regular rhythm GI: COMMON NORMALS: non-tender : COMMON NORMALS: Yes no CVA tenderness BLADDER/KIDNEY EXAM: Yes no CVA tenderness Back/Pelvis: COMMON NORMALS: no CVA tenderness Psych: OTHER: Patient is confused Urinary Catheter Management: Curtis: Cath Placed During This Visit: yes Reason for Continuing Indwelling Catheter: Acute Urinary Retention or Obstruction Urinary Catheter Date of Insertion: 03/13/23 Urinary Catheter Time of Insertion: 12:30 Data 03/15/23 01:28 03/15/23 01:28 Micro: Microbiology 03/14/23 17:00 Blood Culture - Preliminary Blood SPECIMEN COLLECTED 03/14/23 16:53 Blood Culture - Preliminary Blood SPECIMEN COLLECTED A&P Assessment and plan (1) Closed L3 vertebral fracture: At this point patient will not wear his TLSO brace he is very confused. We will hold off on any surgical intervention at this time. We will be available when medically stable. [facility] Necessity Statement*: Defer to medical team Coding Level of Care Code Acute Code for Chg Fwd Diagnoses Closed L3 vertebral fracture S32.039A
[2023-03-15] MEDS: budesonide 0.5 mg/2 mL Neb INHALATION (08:19)
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
[2023-03-15] MEDS: allopurinol 100 mg Tablet PO (10:06)
[2023-03-15] MEDS: cholecalciferol (vitamin D3) 1,000 unit Tablet 2000 UNIT PO (10:06)
[2023-03-15] MEDS: potassium chloride ER 20 mEq Tablet PO (10:06)
[2023-03-15] MEDS: midodrine 5 mg TABLET PO ×2 (10:06→16:26)
[2023-03-15] MEDS: lactulose oral liq 20 gm/30 mL UDC PO (10:06)
[2023-03-15] MEDS: aspirin 81 mg EC Tablet PO (10:06)
[2023-03-15] MEDS: LORazepam 2 mg/mL INJ 1 mL 1 MG IM (10:47)
--- NOTE | 2023-03-15 10:48 | PC.NURSE ---
Dona Valle RN student with [employer] gave IV morphine and IM ativan under guidance from Mrs. Smith.
--- NOTE | 2023-03-15 11:10 | PC.NURSE ---
Pt pulled santos out
[2023-03-15] MEDS: FUROsemide 10 mg/mL SDV 4mL 40 MG IVP (11:18)
[2023-03-15 11:53] LABS: Glucose Point of Care 136 mg/dL (70-110)
--- NOTE | 2023-03-15 14:55 | PC.SLP ---
The patient is not alert enough at the present time to participate in [facility] assessment.
--- NOTE | 2023-03-15 15:32 | PC.PHAR ---
[id number] VANCOMYCIN Patient: Floor: Age: 67 yo Serum creatinine: 0.9 mg/dL Height: 69.0 Inches Weight (kg): 81.647 IBW (kg): 70.70 Dosing wt(kg): 81.647 Estimated Creatinine clearance (ml/min): 80.7 CRCL method: Cockcroft and Gault using ibw(default). Drug selected: Vancomycin Vd (liters): 65.3 (factor used: 0.8 L/kg) Servando (hr-1): 0.071 Half life (hrs): 9.76 Recommended dose: 1250 mg Interval: 12 hrs Infusion time (hrs): 1 Predicted peak (mcg/mL): 32.2 Predicted trough (mcg/mL): 14.75 Total body weight is being used for vancomycin dosing. Renal function is stable [ ] /unstable [ ] Recommendations: Give Vancomycin 1250 mg q 12 hrs with an expected Cpeak of 32.2 mcg/ml and an expected Ctrough of 14.75 mcg/ml Trough entered 03/17/2023 @ 0700
[2023-03-15] MEDS: piperacillin-tazobactam 3.375 GM in sodium chloride 0.9% (plus) 50 ML IV (16:27)
[2023-03-15 17:09] LABS: Glucose Point of Care 119 mg/dL (70-110)
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
--- NOTE | 2023-03-15 17:29 | PC.NURSE ---
MORPHINE GIVEN PER FAMILY REQUEST. PATIENT CURRENTLY RESTING IN BED.
[2023-03-15 19:21] LABS: Influenza A by IFA negative (Negative); Influenza B by IFA negative (Negative)
[2023-03-15 20:49] LABS: Adenovirus Not Detected (NOT DETECT); Chlamydia Pneumoniae Not Detected (NOT DETECT); Coronavirus 229E,HKU1,NL63,OC4 Not Detected (NOT DETECT); Human Metapneumovirus Not Detected (NOT DETECT); Human Rhinovirus/Enterovirus Not Detected (NOT DETECT); Influenza A Not Detected (NOT DETECT); Influenza A H1 Not Detected (NOT DETECT); Influenza A H1-2009 Not Detected (NOT DETECT); Influenza A H3 Not Detected (NOT DETECT); Influenza B Not Detected (NOT DETECT); Mycoplasma Pneumoniae Not Detected (NOT DETECT); Parainfluenza Virus Type 1 Not Detected (NOT DETECT); Parainfluenza Virus Type 2 Not Detected (NOT DETECT); Parainfluenza Virus Type 3 Not Detected (NOT DETECT); Parainfluenza Virus Type 4 Not Detected (NOT DETECT); Respiratory Syncytial Virus A Not Detected (NOT DETECT); Respiratory Syncytial Virus B Not Detected (NOT DETECT); SARS-COV-2 Not Detected (NOT DETECT)
[2023-03-15 20:55] LABS: Glucose Point of Care 110 mg/dL (70-110)
[2023-03-15] MEDS: vancomycin 1,500 MG/300 ML PIGGYBACK 200 MG IV (21:00)
[2023-03-15] MEDS: pantoprazole 40 mg SDV IVP (21:15)
[2023-03-16] VITALS (9 sets, daily range): BP systolic 118–133; BP diastolic 55–75; PULSE 58–76; RESP 16–22; TEMP 36.2–36.7; O2SAT 91–96
[2023-03-16] MEDS: piperacillin-tazobactam 3.375 GM in sodium chloride 0.9% (plus) 50 ML IV ×3 (00:14→19:04)
[2023-03-16] MEDS: LORazepam 2 mg/mL INJ 1 mL 1 MG IVP ×3 (03:00→10:06)
[2023-03-16 06:23] LABS: Eosinophils % 0.1 %; Hematocrit 37.9 % (37-53); Lymphocytes # 0.4 10^3/uL (0.8-4.8); Mean Corpuscular HGB Conc 28.2 g/dL (30-55); Mean Corpuscular Hemoglobin 21.9 pg (27-33); Mean Corpuscular Volume 77.5 fl (82-101); Mean Platelet Volume 11.2 fL (7.4-10.4); Monocytes # 0.9 10^3/uL (0.2-0.9); Monocytes % 8.5 %; Neutrophils # 8.73 10^3/uL (1.8-7.7); Neutrophils % 86.8 %; Nucleated Red Blood Cells % 0 %; Platelet Count 166 10^3/cmm (157-399); Red Blood Count 4.89 10^6/uL (3.85-5.65); Red Cell Distribution Width 21.8 % (12.1-15.1); White Blood Count 10.05 10^3/uL (3.29-11.43)
[2023-03-16 06:34] LABS: INR 1.46 (0.8-1.2)
[2023-03-16 06:35] LABS: Partial Thromboplastin Time 34.5 SECONDS (23.9-36.7)
[2023-03-16 06:50] LABS: Alanine Aminotransferase 22 U/L (0-41); Albumin Level 3.6 g/dL (3.5-5.2); Alkaline Phosphatase 97 U/L (40-130); Anion Gap 17.3 (5-19); Aspartate Amino Transferase 25 U/L (0-40); Blood Urea Nitrogen 60 mg/dL (8-23); Calcium 10.1 mg/dL (8.5-10.5); Carbon Dioxide 26 mmol/L (22-29); Chloride 106 mmol/L (98-107); Globulin 3.1 g/dL (1.3-4.6); Glomerular Filtration Rate 74.8 mL/min (90-130); Glucose 126 mg/dL (65-115); Magnesium 2.8 mg/dL (1.7-2.3); Osmolality Calculated 318 mOsm/kg (285-295); Phosphorus 4.5 mg/dL (2.5-4.5); Potassium 4.3 mmol/L (3.5-5.1); Sodium 145 mmol/L (136-145); Total Bilirubin 4.3 mg/dL (0.15-1.2); Total Protein 6.7 g/dL (6.6-8.7)
[2023-03-16 06:52] LABS: NT Pro B Type Natriuretic Pept 7392 pg/mL (0-125)
[2023-03-16 07:09] LABS: C Reactive Protein 4.9 mg/L (0.0-4.9)
[2023-03-16] MEDS: vancomycin 1,500 MG/300 ML PIGGYBACK 200 MG IV ×2 (08:29→19:49)
[2023-03-16] MEDS: cholecalciferol (vitamin D3) 1,000 unit Tablet 2000 UNIT PO (08:39)
[2023-03-16] MEDS: allopurinol 100 mg Tablet PO (08:39)
[2023-03-16] MEDS: midodrine 5 mg TABLET PO (08:39)
[2023-03-16] MEDS: ipratropium-albuterol 3 mL Neb INHALATION (08:45)
[2023-03-16] MEDS: budesonide 0.5 mg/2 mL Neb INHALATION (08:45)
[2023-03-16] MEDS: morphine 4 mg/mL SDV 1 mL 2 MG IVP (10:06)
[2023-03-16] MEDS: OLANZapine 10 mg VIAL 5 MG IM ×2 (10:54→23:15)
--- NOTE | 2023-03-16 11:44 | PC.OT ---
OT TREATMENT ATTEMPTED. PATIENT SLEEPING SOUNDLY; 1:1 STATES ATIVAN WAS GIVEN EARLIER DUE TO AGITATION. WILL ATTEMPT AGAIN AT A LATER TIME
[2023-03-16 11:59] LABS: Glucose Point of Care 114 mg/dL (70-110)
[2023-03-16 12:06] LABS: Lipase 55 U/L (13-60)
--- NOTE | 2023-03-16 12:13 | PC.SLP ---
MATERIAL MOVER unable to complete assessment of swallowing with the patient. The patient said Ativan and is not alert enough to participate at this point.
--- NOTE | 2023-03-16 12:21 | PC.SOCIAL ---
IMM Update pg 2 of IMM updated and reviewed w/ patients nephew @ bedside. Copy provided and copy dated, initialed and placed in chart.
[2023-03-16 12:22] LABS: Vitamin B12 1653 pg/mL (232-1245)
[2023-03-16 12:31] LABS: Folate Level > 20.0 ng/mL (4.5-32.2)
--- NOTE | 2023-03-16 13:04 | PC.OT ---
hold OT due to lumbar floroscopy today.
--- NOTE | 2023-03-16 13:15 | PC.NURSE ---
This RN received report on patient.
--- NOTE | 2023-03-16 14:00 | CT_ITS ---
WS: [id number] CT CERVICAL SPINE TECHNIQUE: Noncontrast CT of the cervical spine with coronal and sagittal reformatted images. CLINICAL INFORMATION: ams COMPARISON: 03/11/2023 DLP: 187.[address] scans at [facility] use at least one of these dose optimization techniques: automated e xposure control; mA and/or kV adjustment per patient size (includes targeted exams where dose is matc hed to clinical indication); or iterative reconstruction. FINDINGS: Mild cervical curve. Mild spondylitic changes. Prior postoperative changes ACDF C6-7. Alignment appea rs unchanged from previous. No high-grade central canal stenosis. No evidence of discitis or osteomye litis. Mild spondylitic changes. Carotid bulb calcification. No other suspicious findings. Visualized posterior nasopharynx: Normal. Prevertebral soft tissues: Normal. Partial opacification of RIGHT mastoid air cells and RIGHT middle ear. IMPRESSION: No acute cervical spine findings
--- NOTE | 2023-03-16 14:00 | CT_ITS ---
WS: [id number] CT LUMBAR SPINE TECHNIQUE: Noncontrast CT of the lumbar spine with coronal and sagittal reformatted images. CLINICAL INFORMATION: ams COMPARISON: None. DLP: 1615.[address] scans at [facility] use at least one of these dose optimization techniques: automated e xposure control; mA and/or kV adjustment per patient size (includes targeted exams where dose is matc hed to clinical indication); or iterative reconstruction. FINDINGS: Stable burst type compression fracture at L3 with retropulsion. This results in moderate central janette l stenosis stable in appearance. Stable additional tiny avulsion LEFT superior facet at L4 unchanged. No other acute appearing lumbar compression fractures. Nondisplaced fractures bilateral L3 transvers e processes. Aortic endograft with biiliac extension. Mesenteric edema. Free fluid in the pelvis. Sigmoid divertic ulosis. Perinephric edema. Anasarca. IMPRESSION: 1. Stable burst type compression fracture at L3 with retropulsion resulting in moderate central janette l stenosis and impingement of the subarticular recess bilaterally. Moderate surrounding paravertebral edema. 2. No other acute appearing lumbar spine fractures. 3. Nondisplaced bilateral L3 transverse process fractures. 4. Aortic endograft with biiliac extension. 5. Partially visualized mesenteric edema and perinephric edema with body wall anasarca appears incre ased compared to previous which may be due to intravenous fluids. 6. Sigmoid diverticulosis.
--- NOTE | 2023-03-16 14:00 | CT_ITS ---
WS: [id number] CT HEAD TECHNIQUE: Noncontrast CT of the head obtained from the skullbase to the vertex. CLINICAL INFORMATION: ams COMPARISON: 03/14/2023 DLP: 1038.[address] scans at [facility] use at least one of these dose optimization techniques: automated e xposure control; mA and/or kV adjustment per patient size (includes targeted exams where dose is matc hed to clinical indication); or iterative reconstruction. FINDINGS: No evidence of intracranial hemorrhage or mass effect. Ventricular system and basal cisterns are arevalo nt. Mild small vessel changes with moderate parenchymal volume loss. No extra-axial fluid collections . No evidence of mass or mass effect. Chronic lacunar infarcts RIGHT cerebellum. Vascular calcificati on. LEFT frontal scalp hematoma. Partial opacification RIGHT mastoid air cells and RIGHT middle ear. Polyploid mucosal thickening RIGH T maxillary sinus. Mild mucosal thickening in the ethmoid air cells. Normal posterior nasopharynx. IMPRESSION: 1. No evidence of intracranial hemorrhage or mass effect. 2. Partial opacification RIGHT mastoid air cells and RIGHT middle ear. 3. No acute intracranial findings.
--- NOTE | 2023-03-16 14:00 | CT_ITS ---
WS: [id number] CT THORACIC SPINE TECHNIQUE: Noncontrast CT of the thoracic spine with coronal and sagittal reformatted images. CLINICAL INFORMATION: ams COMPARISON: 11/21/2020 DLP: 1615.[address] scans at [facility] use at least one of these dose optimization techniques: automated e xposure control; mA and/or kV adjustment per patient size (includes targeted exams where dose is matc hed to clinical indication); or iterative reconstruction. FINDINGS: Slight compression superior end plates at T1, T2, T3 may be acute but age-indeterminate. Images degra ded by patient motion. Mild cervical curve. Mild spondylitic changes thoracic spine. No high-grade central canal stenosis. N o evidence of discitis or osteomyelitis. Moderate facet arthropathy lower thoracic spine. Cardiomegal y. Aortic calcification. Coronary calcification. Prior sternotomy. Partially visualized bibasilar ate lectasis. IMPRESSION: 1. Slight compression superior endplates at T1, T2, T3 may be acute but age-indeterminate. Images de graded by patient motion. 2. No retropulsion. 3. No other acute thoracic spine findings. 4. Cardiomegaly. 5. Bibasilar atelectasis.
[2023-03-16] MEDS: folic acid 1 MG, multivitamin inj 10 ML, thiamine 100 MG in sodium chloride 0.9% 1,000 ML 252.8 MG IV (14:01)
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
[2023-03-16 16:46] LABS: Glucose Point of Care 104 mg/dL (70-110)
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
[2023-03-16] MEDS: dexamethasone 10 mg/mL INJ 6 MG IVP (17:30)
[2023-03-16] MEDS: nicotine 21 mg Patch 1 PATCH TRANSDERMA (20:00)
[2023-03-16 20:52] LABS: Glucose Point of Care 126 mg/dL (70-110)
[2023-03-16] MEDS: LORazepam 2 mg/mL INJ 1 mL 1 MG IM (21:53)
[2023-03-17] VITALS (9 sets, daily range): BP systolic 105–142; BP diastolic 56–74; PULSE 60–65; RESP 17–20; TEMP 36.2–36.3; O2SAT 91–95
--- NOTE | 2023-03-17 02:02 | PC.NURSE ---
Took over pt care at this time.
[2023-03-17] MEDS: pantoprazole 40 mg SDV IVP ×2 (02:41→20:34)
[2023-03-17] MEDS: piperacillin-tazobactam 3.375 GM in sodium chloride 0.9% (plus) 50 ML IV ×3 (02:42→17:25)
[2023-03-17] MEDS: LORazepam 2 mg/mL INJ 1 mL IM (03:14)
[2023-03-17 06:51] LABS: Glucose Point of Care 143 mg/dL (70-110)
[2023-03-17 07:17] LABS: Basophils % 0.1 %; Eosinophils % 0.1 %; Lymphocytes # 0.4 10^3/uL (0.8-4.8); Lymphocytes % 5.2 %; Mean Corpuscular Volume 78.7 fl (82-101); Mean Platelet Volume 10.6 fL (7.4-10.4); Monocytes # 0.4 10^3/uL (0.2-0.9); Monocytes % 5.5 %; Neutrophils # 6.69 10^3/uL (1.8-7.7); Neutrophils % 88.4 %; Nucleated Red Blood Cells % 0 %; Platelet Count 157 10^3/cmm (157-399); Red Blood Count 5.08 10^6/uL (3.85-5.65); Red Cell Distribution Width 22.2 % (12.1-15.1); White Blood Count 7.57 10^3/uL (3.29-11.43)
[2023-03-17 07:34] LABS: Alanine Aminotransferase 25 U/L (0-41); Albumin Level 3.8 g/dL (3.5-5.2); Alkaline Phosphatase 99 U/L (40-130); Aspartate Amino Transferase 31 U/L (0-40); Blood Urea Nitrogen 59 mg/dL (8-23); Calcium 10.1 mg/dL (8.5-10.5); Carbon Dioxide 22 mmol/L (22-29); Chloride 111 mmol/L (98-107); Globulin 2.8 g/dL (1.3-4.6); Glomerular Filtration Rate 74.8 mL/min (90-130); Glucose 143 mg/dL (65-115); Magnesium 2.7 mg/dL (1.7-2.3); Osmolality Calculated 325 mOsm/kg (285-295); Phosphorus 4.5 mg/dL (2.5-4.5); Sodium 148 mmol/L (136-145); Total Bilirubin 5.4 mg/dL (0.15-1.2); Total Protein 6.6 g/dL (6.6-8.7); Vancomycin Trough 22.4 ug/mL (10-15)
[2023-03-17 07:38] LABS: Anion Gap 19.7 (5-19); Potassium 4.7 mmol/L (3.5-5.1)
[2023-03-17 07:39] LABS: INR 1.39 (0.8-1.2)
[2023-03-17 07:44] LABS: C Reactive Protein 3.9 mg/L (0.0-4.9); NT Pro B Type Natriuretic Pept 10850 pg/mL (0-125); Procalcitonin 0.09 ng/mL (0-0.5)
[2023-03-17] MEDS: budesonide 0.5 mg/2 mL Neb INHALATION ×2 (08:48→19:46)
[2023-03-17] MEDS: ipratropium-albuterol 3 mL Neb INHALATION ×2 (08:48→19:46)
[2023-03-17] MEDS: cholecalciferol (vitamin D3) 1,000 unit Tablet 2000 UNIT PO (10:56)
[2023-03-17] MEDS: nicotine 21 mg Patch 1 PATCH TRANSDERMA (10:56)
[2023-03-17] MEDS: midodrine 5 mg TABLET PO ×3 (10:56→20:34)
[2023-03-17] MEDS: pregabalin 100 mg Capsule 300 MG PO ×2 (10:56→20:35)
[2023-03-17] MEDS: folic acid 1 mg Tablet PO (10:57)
[2023-03-17] MEDS: multivitamin therapeutic Tablet 1 TAB PO (10:57)
[2023-03-17] MEDS: allopurinol 100 mg Tablet PO ×2 (10:57→17:25)
[2023-03-17] MEDS: lactulose oral liq 20 gm/30 mL UDC PO (10:57)
[2023-03-17] MEDS: sodium chloride 0.9% 1,000 ML 30 ML IV (11:24)
[2023-03-17 11:51] LABS: Ammonia 33 umol/L (16-60)
[2023-03-17 11:53] LABS: Lyme AB Screen <0.90 index; Lymes IGG WB <0.90 index
[2023-03-17 12:20] LABS: Glucose Point of Care 190 mg/dL (70-110)
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
[2023-03-17] MEDS: insulin lispro 100 unit/1 mL SUBCUT ×2 (13:02→17:29)
[2023-03-17] MEDS: vancomycin 1,000 MG in sodium chloride 0.9% 250 ML 250 MG IV (15:07)
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
[2023-03-17 15:39] LABS: HSV 1 IGG Type Specific AB >58.00 index
[2023-03-17 17:04] LABS: Glucose Point of Care 169 mg/dL (70-110)
--- NOTE | 2023-03-17 17:30 | PC.SLP ---
TOY PACKER attempted to follow-up with the patient, however, the patient is not alert at this time. TOY PACKER will attempt to follow-up the patient tomorrow and advance diet if the patient is able.
[2023-03-17 20:17] LABS: Glucose Point of Care 130 mg/dL (70-110)
[2023-03-17] MEDS: insulin glargine 100 units/1 mL 10 UNIT SUBCUT (20:34)
[2023-03-17 21:07] LABS: Glucose Point of Care 203 mg/dL (70-110)
[2023-03-18] VITALS (9 sets, daily range): BP systolic 101–131; BP diastolic 61–79; PULSE 60–71; RESP 16–20; TEMP 36.3–36.5; O2SAT 90–96
[2023-03-18] MEDS: lactulose oral liq 20 gm/30 mL UDC PO ×3 (00:07→21:42)
[2023-03-18] MEDS: vancomycin 1,000 MG in sodium chloride 0.9% 250 ML 250 MG IV ×2 (01:34→14:49)
[2023-03-18] MEDS: piperacillin-tazobactam 3.375 GM in sodium chloride 0.9% (plus) 50 ML IV ×3 (03:13→19:15)
[2023-03-18 06:48] LABS: Glucose Point of Care 97 mg/dL (70-110)
[2023-03-18 07:05] LABS: INR 1.47 (0.8-1.2)
[2023-03-18 07:20] LABS: NT Pro B Type Natriuretic Pept 8678 pg/mL (0-125); Procalcitonin 0.09 ng/mL (0-0.5)
[2023-03-18] MEDS: nicotine 21 mg Patch 1 PATCH TRANSDERMA (08:56)
[2023-03-18] MEDS: cholecalciferol (vitamin D3) 1,000 unit Tablet 2000 UNIT PO (08:56)
[2023-03-18] MEDS: pregabalin 100 mg Capsule 300 MG PO ×2 (08:57→21:43)
[2023-03-18] MEDS: multivitamin therapeutic Tablet 1 TAB PO (08:58)
[2023-03-18] MEDS: midodrine 5 mg TABLET PO ×3 (08:58→21:43)
[2023-03-18] MEDS: folic acid 1 mg Tablet PO (08:59)
[2023-03-18] MEDS: allopurinol 100 mg Tablet PO ×2 (08:59→17:30)
[2023-03-18 09:45] LABS: Basophils % 0.1 %; Eosinophils % 0.2 %; Hematocrit 38.8 % (37-53); Lymphocytes # 0.5 10^3/uL (0.8-4.8); Mean Corpuscular HGB Conc 28.6 g/dL (30-55); Mean Corpuscular Hemoglobin 22.2 pg (27-33); Mean Corpuscular Volume 77.8 fl (82-101); Mean Platelet Volume 10.9 fL (7.4-10.4); Monocytes % 8.6 %; Neutrophils # 9.93 10^3/uL (1.8-7.7); Neutrophils % 86.6 %; Nucleated Red Blood Cells % 0.2 %; Platelet Count 143 10^3/cmm (157-399); Red Blood Count 4.99 10^6/uL (3.85-5.65); Red Cell Distribution Width 22.2 % (12.1-15.1); White Blood Count 11.47 10^3/uL (3.29-11.43)
[2023-03-18 10:00] LABS: Ammonia 23 umol/L (16-60)
[2023-03-18 10:08] LABS: Slide Review Slide Review Perform
[2023-03-18 10:09] LABS: Acanthocytes 1+; Add RBC Morph Yes; Anisocytosis 2+; Hypochromasia 1+; Ovalocytes Trace; Poikilocytosis 1+; RBC Morph Comp No; Target Cells Trace
[2023-03-18 10:44] LABS: Alanine Aminotransferase 26 U/L (0-41); Albumin Level 3.5 g/dL (3.5-5.2); Alkaline Phosphatase 91 U/L (40-130); Anion Gap 14.1 (5-19); Aspartate Amino Transferase 24 U/L (0-40); Blood Urea Nitrogen 46 mg/dL (8-23); Calcium 9.7 mg/dL (8.5-10.5); Carbon Dioxide 25 mmol/L (22-29); Chloride 110 mmol/L (98-107); Globulin 2.5 g/dL (1.3-4.6); Glomerular Filtration Rate 74.8 mL/min (90-130); Glucose 99 mg/dL (65-115); Magnesium 2.6 mg/dL (1.7-2.3); Osmolality Calculated 312 mOsm/kg (285-295); Potassium 4.1 mmol/L (3.5-5.1); Sodium 145 mmol/L (136-145); Total Bilirubin 5.8 mg/dL (0.15-1.2)
[2023-03-18 11:06] LABS: Glucose Point of Care 128 mg/dL (70-110)
[2023-03-18 16:46] LABS: Glucose Point of Care 102 mg/dL (70-110)
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
--- NOTE | 2023-03-18 17:12 | PC.RESP ---
RN SENT VOALTE MESSAGE ASKING IF PT WOULD BENEFIT FROM BREATHING TX. RT WENT AND ASSESSED PT. UPON ENTERING ROOM, PT IS SLEEPING SOUNDLY, NO RESP DISTRESS NOTED, SPO2 95% ON 2L NC, BREATH SOUNDS DIMINISHED. FAMILY IN ROOM STATED PT HAD BEEN SLEEPING FOR A BIT AND DID NOT NOTICE ANY RESP DISTRESS PRIOR TO PT FALLING ASLEEP. NO INDICATION FOR BREATHING TX NOTED AT THIS TIME
[2023-03-18] MEDS: rivaroxaban 10 mg Tablet 20 MG PO (17:30)
[2023-03-18] MEDS: budesonide 0.5 mg/2 mL Neb INHALATION (19:51)
[2023-03-18] MEDS: ipratropium-albuterol 3 mL Neb INHALATION (19:51)
[2023-03-18 21:03] LABS: Glucose Point of Care 153 mg/dL (70-110)
[2023-03-18] MEDS: pantoprazole 40 mg SDV IVP (21:42)
[2023-03-18] MEDS: insulin glargine 100 units/1 mL 10 UNIT SUBCUT (21:42)
[2023-03-19] VITALS (11 sets, daily range): BP systolic 98–110; BP diastolic 56–65; PULSE 59–73; RESP 16–18; TEMP 36.4–36.8; O2SAT 90–97
[2023-03-19] MEDS: sodium chloride 0.9% 1,000 ML 30 ML IV (00:36)
[2023-03-19 01:45] LABS: Basophils % 0.1 %; Eosinophils # 0.2 10^3/uL (0.0-0.8); Eosinophils % 1.6 %; Hematocrit 40.9 % (37-53); Lymphocytes # 0.7 10^3/uL (0.8-4.8); Lymphocytes % 5.4 %; Mean Corpuscular HGB Conc 29.1 g/dL (30-55); Mean Corpuscular Hemoglobin 22.5 pg (27-33); Mean Corpuscular Volume 77.3 fl (82-101); Mean Platelet Volume 10.9 fL (7.4-10.4); Monocytes % 8.3 %; Neutrophils # 10.48 10^3/uL (1.8-7.7); Neutrophils % 84.1 %; Nucleated Red Blood Cells % 0.2 %; Platelet Count 149 10^3/cmm (157-399); Red Blood Count 5.29 10^6/uL (3.85-5.65); Red Cell Distribution Width 22.5 % (12.1-15.1); White Blood Count 12.45 10^3/uL (3.29-11.43)
[2023-03-19 02:00] LABS: Vancomycin Trough 22.3 ug/mL (10-15)
[2023-03-19 02:01] LABS: Alanine Aminotransferase 28 U/L (0-41); Albumin Level 3.6 g/dL (3.5-5.2); Alkaline Phosphatase 95 U/L (40-130); Anion Gap 11.8 (5-19); Aspartate Amino Transferase 26 U/L (0-40); Blood Urea Nitrogen 39 mg/dL (8-23); C Reactive Protein 3.6 mg/L (0.0-4.9); Calcium 9.9 mg/dL (8.5-10.5); Carbon Dioxide 29 mmol/L (22-29); Chloride 106 mmol/L (98-107); Glomerular Filtration Rate 84.4 mL/min (90-130); Glucose 73 mg/dL (65-115); Magnesium 2.4 mg/dL (1.7-2.3); Osmolality Calculated 304 mOsm/kg (285-295); Phosphorus 2.5 mg/dL (2.5-4.5); Potassium 3.8 mmol/L (3.5-5.1); Sodium 143 mmol/L (136-145); Total Bilirubin 5.5 mg/dL (0.15-1.2); Total Protein 6.6 g/dL (6.6-8.7)
[2023-03-19 02:02] LABS: Ammonia 16 umol/L (16-60)
[2023-03-19 02:07] LABS: Slide Review Slide Review Perform
[2023-03-19 02:13] LABS: NT Pro B Type Natriuretic Pept 6373 pg/mL (0-125)
[2023-03-19 02:23] LABS: Creatine Phosphokinase 100 U/L (39-308)
[2023-03-19 02:24] LABS: INR 2.27 (0.8-1.2)
--- NOTE | 2023-03-19 02:30 | PC.PHAR ---
Pharmacokinetic dosing service Date: 03/19/23 Time: 229 Patient: Arnie Coombs Floor: 268-1 Weight: 81.647 Kilograms Vancomycin single level analysis: Current dose being given: 1000 mg Current dosing interval: q12 hrs Current infusion time (hrs): 1 Single level Trough Data: Trough level obtained: 22.3 mcg/ml Timing of trough - # of hrs before next dose: 0.5 Hrs Desired peak: 40 mcg/ml Desired trough: 15 mcg/ml Diagnosis: Relevant medical/social history: Cultures and sensitivities: Other labs: Estimated PK Parameters: New rate constant (gibran): 0.041 hr-1 Half-life: 16.91 Hours Vd from levels: 73.48 Liters (0.7 L/kg) CLvanco=?? 3.013 L/hr Estimated New Dose and Interval Recommended dose: 1919.1 mg Recommended interval: 24.9 Hrs Patient response: Patient is responding to treatment [yes/no] wbc decreasing, S/SX reduced [yes/no] Renal function is stable/unstable Recommendations: Give Vancomycin 1000 mg q 18 hrs. Infuse over 1 hrs Expected Cpeak: 25.5 mcg/mL Expected Ctrough: 12.7 mcg/mL AUC 0-24 /DONTAE Data: DONTAE 0.5 mcg/mL:?? AUC/DONTAE:? 885.1 DONTAE 1.0 mcg/mL:?? AUC/DONTAE:? 442.5 Recommended labs and intervals: Measure Bun and Scr 3 times/week. Renal dosing of other antibiotics (review renal dosing of other medications and list guidelines here): Thank you for the consult, will continue to follow. Signature: Danitza Cuello [facility]
[2023-03-19] MEDS: piperacillin-tazobactam 3.375 GM in sodium chloride 0.9% (plus) 50 ML IV ×3 (02:39→17:12)
--- NOTE | 2023-03-19 07:00 | XRR_ITS ---
PROCEDURE INFORMATION: Exam: XR Chest Exam date and time: 03/19/2023 9:57 AM Age: 67 years old Clinical indication: Shortness of breath; Prior surgery; Surgery date: 6+ months; Surgery type: Heart; Additional info: SOB TECHNIQUE: Imaging protocol: Radiologic exam of the chest. Views: 1 view. COMPARISON: 1. CR XR chest 1V portable [id number] 03/15/2023 7:17 AM 2. CR (CHEST, ) 03/14/2023 4:[address] chest abdpel w/*[id number] 03/11/2023 3:08 PM 4. CR XR chest 1V portable [id number] 01/02/2022 5:26 AM FINDINGS: Tubes, catheters and devices: Stable dual lead AICD with left chest generator. Multiple mediastinal surgical clips. Lungs: Mildly increased diffuse hazy ground-glass opacification of the right lung. Left lung is clear. Pulmonary vascular congestion. Pleural spaces: No substantial pleural effusion or pneumothorax. Heart/Mediastinum: Stable cardiomegaly. Bones/joints: Prior median sternotomy. Lower cervical spine fusion hardware. Multiple chronic right rib fractures. Degenerative changes along the spine. XR/XR chest 1V portable [id number] IMPRESSION: Diffuse hazy opacification of the right lung is nonspecific, could represent edema in the setting of cardiomegaly and pulmonary vascular congestion.
[2023-03-19] MEDS: budesonide 0.5 mg/2 mL Neb INHALATION (08:04)
[2023-03-19] MEDS: ipratropium-albuterol 3 mL Neb INHALATION (08:04)
[2023-03-19] MEDS: vancomycin 1,000 MG in sodium chloride 0.9% 250 ML 250 MG IV (08:36)
[2023-03-19] MEDS: lactulose oral liq 20 gm/30 mL UDC PO ×2 (09:17→21:10)
[2023-03-19] MEDS: multivitamin therapeutic Tablet 1 TAB PO (09:18)
[2023-03-19] MEDS: midodrine 5 mg TABLET PO ×3 (09:18→21:10)
[2023-03-19] MEDS: cholecalciferol (vitamin D3) 1,000 unit Tablet 2000 UNIT PO (09:18)
[2023-03-19] MEDS: pregabalin 100 mg Capsule 300 MG PO ×2 (09:18→21:10)
[2023-03-19] MEDS: folic acid 1 mg Tablet PO (09:18)
[2023-03-19] MEDS: allopurinol 100 mg Tablet PO ×2 (09:19→17:12)
--- NOTE | 2023-03-19 09:32 | PC.NURSE ---
patients blood sugar 86 this am
[2023-03-19 11:19] LABS: Glucose Point of Care 109 mg/dL (70-110)
[2023-03-19] MEDS: benzonatate 100 mg Capsule 200 MG PO (12:05)
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
[2023-03-19 16:45] LABS: RMSF IGG NOT DETECTED; RMSF IGM NOT DETECTED
[2023-03-19 16:56] LABS: Glucose Point of Care 169 mg/dL (70-110)
[2023-03-19] MEDS: guaiFENesin 100 mg/5 mL UDC 10 mL 200 MG PO (17:07)
[2023-03-19] MEDS: rivaroxaban 10 mg Tablet 20 MG PO (17:12)
[2023-03-19] MEDS: insulin lispro 100 unit/1 mL SUBCUT (17:12)
[2023-03-19 20:22] LABS: Glucose Point of Care 166 mg/dL (70-110)
[2023-03-19] MEDS: insulin glargine 100 units/1 mL 10 UNIT SUBCUT (21:10)
[2023-03-19] MEDS: pantoprazole 40 mg SDV IVP (21:10)
[2023-03-19] MEDS: oxyCODONE 5 mg IR Tab/Cap PO (23:57)
[2023-03-20] VITALS (11 sets, daily range): BP systolic 99–123; BP diastolic 51–70; PULSE 58–99; RESP 14–20; TEMP 36.2–36.9; O2SAT 64–99
[2023-03-20] MEDS: piperacillin-tazobactam 3.375 GM in sodium chloride 0.9% (plus) 50 ML IV ×2 (01:52→10:37)
[2023-03-20 05:02] LABS: Basophils % 0.1 %; Eosinophils # 0.4 10^3/uL (0.0-0.8); Eosinophils % 4.4 %; Lymphocytes # 0.7 10^3/uL (0.8-4.8); Lymphocytes % 7.8 %; Mean Corpuscular HGB Conc 28.7 g/dL (30-55); Mean Corpuscular Hemoglobin 22.3 pg (27-33); Mean Corpuscular Volume 77.7 fl (82-101); Mean Platelet Volume 9.9 fL (7.4-10.4); Monocytes # 0.8 10^3/uL (0.2-0.9); Monocytes % 9.1 %; Neutrophils # 6.55 10^3/uL (1.8-7.7); Neutrophils % 77.7 %; Nucleated Red Blood Cells % 0.2 %; Platelet Count 115 10^3/cmm (157-399); Red Blood Count 4.89 10^6/uL (3.85-5.65); Red Cell Distribution Width 22.1 % (12.1-15.1); White Blood Count 8.44 10^3/uL (3.29-11.43)
[2023-03-20 05:26] LABS: INR 2.59 (0.8-1.2)
[2023-03-20 05:28] LABS: Ammonia 30 umol/L (16-60)
[2023-03-20 05:29] LABS: Alanine Aminotransferase 23 U/L (0-41); Albumin Level 2.9 g/dL (3.5-5.2); Alkaline Phosphatase 84 U/L (40-130); Anion Gap 8.9 (5-19); Aspartate Amino Transferase 19 U/L (0-40); Blood Urea Nitrogen 28 mg/dL (8-23); C Reactive Protein 13.2 mg/L (0.0-4.9); Carbon Dioxide 28 mmol/L (22-29); Chloride 108 mmol/L (98-107); Globulin 2.7 g/dL (1.3-4.6); Glomerular Filtration Rate 96.7 mL/min (90-130); Glucose 75 mg/dL (65-115); Magnesium 2.2 mg/dL (1.7-2.3); Osmolality Calculated 296 mOsm/kg (285-295); Phosphorus 2.6 mg/dL (2.5-4.5); Potassium 3.9 mmol/L (3.5-5.1); Sodium 141 mmol/L (136-145); Total Bilirubin 3.5 mg/dL (0.15-1.2); Total Protein 5.6 g/dL (6.6-8.7)
[2023-03-20] MEDS: oxyCODONE 5 mg IR Tab/Cap PO ×3 (05:40→20:20)
[2023-03-20 05:51] LABS: Creatine Phosphokinase 35 U/L (39-308); NT Pro B Type Natriuretic Pept 4037 pg/mL (0-125)
[2023-03-20 06:15] LABS: Procalcitonin 0.09 ng/mL (0-0.5)
[2023-03-20 06:48] LABS: Glucose Point of Care 67 mg/dL (70-110)
[2023-03-20] MEDS: budesonide 0.5 mg/2 mL Neb INHALATION ×3 (07:08→20:09)
[2023-03-20 08:52] LABS: Glucose Point of Care 158 mg/dL (70-110)
[2023-03-20] MEDS: multivitamin therapeutic Tablet 1 TAB PO (09:10)
[2023-03-20] MEDS: midodrine 5 mg TABLET PO ×3 (09:11→20:20)
[2023-03-20] MEDS: folic acid 1 mg Tablet PO (09:11)
[2023-03-20] MEDS: cholecalciferol (vitamin D3) 1,000 unit Tablet 2000 UNIT PO (09:11)
[2023-03-20] MEDS: allopurinol 100 mg Tablet PO ×2 (09:11→17:51)
[2023-03-20] MEDS: pregabalin 100 mg Capsule 300 MG PO ×2 (09:11→20:20)
[2023-03-20 10:36] LABS: Add Urine Microscopic? YES; Bilirubin Urine Neg (Negative); Blood Urine 3+ (Negative); Glucose Urine UA Norm (Normal); Ketones Urine Negative (Negative); Leukocyte Esterase Urine Negative (Negative); Nitrate Urine Negative (Negative); Protein Urine Neg (Negative); Specific Gravity, Urine 1.015 (1.005-1.030); Urine Appearance SL Hazy (CLEAR); Urine Color Yellow (Yellow); Urobilinogen Urine Norm (Negative); pH Urine 5 (5-7)
[2023-03-20] MEDS: lactulose oral liq 20 gm/30 mL UDC PO ×2 (10:37→21:59)
[2023-03-20 10:38] LABS: RBC Urine 50-80 /hpf (0-2); Squamous Epithelial Cell Urine 0-4 /hpf (0-5)
[2023-03-20 10:39] LABS: Add Urine Culture? Yes; Amorphous Sediment Urine TRACE /hpf; Bacteria Urine 2+ /hpf; Mucus Urine 1+ /hpf
[2023-03-20 11:40] LABS: Glucose Point of Care 168 mg/dL (70-110)
[2023-03-20] MEDS: insulin lispro 100 unit/1 mL SUBCUT ×2 (12:26→17:51)
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
[2023-03-20 16:14] LABS: E. Chaffeensis AB IGG <1:64; E. Chaffeensis AB IGM <1:20
[2023-03-20 17:23] LABS: Glucose Point of Care 197 mg/dL (70-110)
[2023-03-20] MEDS: rivaroxaban 10 mg Tablet 20 MG PO (17:51)
[2023-03-20] MEDS: ipratropium-albuterol 3 mL Neb INHALATION (18:35)
[2023-03-20] MEDS: pantoprazole 40 mg SDV IVP (20:25)
[2023-03-20 21:30] LABS: Glucose Point of Care 139 mg/dL (70-110)
[2023-03-20] MEDS: insulin glargine 100 units/1 mL 10 UNIT SUBCUT (21:59)
[2023-03-21] VITALS (12 sets, daily range): BP systolic 111–126; BP diastolic 52–67; PULSE 54–92; RESP 15–18; TEMP 36.3–37.2; O2SAT 63–97
[2023-03-21] MEDS: ipratropium-albuterol 3 mL Neb INHALATION ×4 (02:44→23:06)
[2023-03-21] MEDS: acetaminophen 325 mg Tablet 650 MG PO (03:14)
[2023-03-21] MEDS: oxyCODONE 5 mg IR Tab/Cap PO ×3 (03:14→17:49)
[2023-03-21 03:16] LABS: Basophils % 0.1 %; Eosinophils # 0.4 10^3/uL (0.0-0.8); Eosinophils % 4.4 %; Hematocrit 38.1 % (37-53); Lymphocytes # 0.7 10^3/uL (0.8-4.8); Lymphocytes % 8.4 %; Mean Corpuscular HGB Conc 28.6 g/dL (30-55); Mean Corpuscular Hemoglobin 22.6 pg (27-33); Mean Corpuscular Volume 78.9 fl (82-101); Mean Platelet Volume 10.9 fL (7.4-10.4); Monocytes # 0.8 10^3/uL (0.2-0.9); Monocytes % 8.9 %; Neutrophils # 6.42 10^3/uL (1.8-7.7); Neutrophils % 76.6 %; Nucleated Red Blood Cells % 0 %; Platelet Count 126 10^3/cmm (157-399); Red Blood Count 4.83 10^6/uL (3.85-5.65); Red Cell Distribution Width 22.4 % (12.1-15.1); White Blood Count 8.38 10^3/uL (3.29-11.43)
[2023-03-21 03:27] LABS: INR 2.49 (0.8-1.2)
[2023-03-21 03:40] LABS: Alanine Aminotransferase 21 U/L (0-41); Alkaline Phosphatase 101 U/L (40-130); Anion Gap 10.1 (5-19); Aspartate Amino Transferase 21 U/L (0-40); Blood Urea Nitrogen 20 mg/dL (8-23); C Reactive Protein 15.7 mg/L (0.0-4.9); Calcium 8.8 mg/dL (8.5-10.5); Carbon Dioxide 30 mmol/L (22-29); Chloride 105 mmol/L (98-107); Globulin 2.8 g/dL (1.3-4.6); Glomerular Filtration Rate 112.8 mL/min (90-130); Glucose 70 mg/dL (65-115); Magnesium 2.1 mg/dL (1.7-2.3); Osmolality Calculated 293 mOsm/kg (285-295); Phosphorus 2.1 mg/dL (2.5-4.5); Potassium 4.1 mmol/L (3.5-5.1); Sodium 141 mmol/L (136-145); Total Bilirubin 2.8 mg/dL (0.15-1.2); Total Protein 5.8 g/dL (6.6-8.7)
[2023-03-21 03:41] LABS: NT Pro B Type Natriuretic Pept 3802 pg/mL (0-125); Procalcitonin 0.06 ng/mL (0-0.5)
[2023-03-21 03:46] LABS: Ammonia 22 umol/L (16-60)
[2023-03-21 03:52] LABS: Creatine Phosphokinase 54 U/L (39-308)
--- NOTE | 2023-03-21 04:11 | XRR_ITS ---
PROCEDURE INFORMATION: Exam: XR Chest Exam date and time: 03/21/2023 6:03 AM Age: 67 years old Clinical indication: Prior surgery; Surgery date: 6+ months; Surgery type: Cabg. Pacer; Patient HX: New onset of hemoptysis. TECHNIQUE: Imaging protocol: Radiologic exam of the chest. Views: 1 view. COMPARISON: 1. CR (CHEST, ) 03/19/2023 9:57 AM 2. CR XR chest 1V portable [id number] 03/15/2023 7:17 AM 3. CR (CHEST, ) 03/14/2023 4:47 PM FINDINGS: Tubes, catheters and devices: Stable AICD with left chest generator. Lungs: Increasing opacification of the right lung greatest at the lower lung zone. Pulmonary vascular congestion. Pleural spaces: No pneumothorax. Heart/Mediastinum: Stable cardiomegaly. Bones/joints: Prior median sternotomy. Lower cervical spine fusion hardware. Multiple chronic right rib fractures. XR/XR chest 1V portable [id number] IMPRESSION: Increasing right lung opacification. Although this could represent asymmetric edema from congestive heart failure, is nonspecific and could also represent infectious or other process. Pleural effusion could have this appearance given supine positioning.
[2023-03-21] MEDS: FUROsemide 10 mg/mL SDV 4mL 40 MG IVP ×2 (05:27→16:26)
[2023-03-21 06:16] LABS: Glucose Point of Care 76 mg/dL (70-110)
[2023-03-21] MEDS: budesonide 0.5 mg/2 mL Neb INHALATION ×2 (10:01→19:48)
[2023-03-21] MEDS: nicotine 21 mg Patch 1 PATCH TRANSDERMA (11:04)
[2023-03-21] MEDS: lactulose oral liq 20 gm/30 mL UDC PO ×2 (11:04→21:04)
[2023-03-21] MEDS: pregabalin 100 mg Capsule 300 MG PO ×2 (11:05→21:04)
[2023-03-21] MEDS: allopurinol 100 mg Tablet PO ×2 (11:05→17:49)
[2023-03-21] MEDS: folic acid 1 mg Tablet PO (11:05)
[2023-03-21] MEDS: multivitamin therapeutic Tablet 1 TAB PO (11:05)
[2023-03-21] MEDS: midodrine 5 mg TABLET PO ×3 (11:05→21:04)
[2023-03-21] MEDS: cholecalciferol (vitamin D3) 1,000 unit Tablet 2000 UNIT PO (11:05)
--- NOTE | 2023-03-21 11:06 | PC.SOCIAL ---
IMM Updated Updated pt & family on IMM. No questions voiced. Provided pt a copy. Initialed, dated, & timed copy in chart.
[2023-03-21 11:48] LABS: Glucose Point of Care 160 mg/dL (70-110)
[2023-03-21] MEDS: insulin lispro 100 unit/1 mL SUBCUT ×2 (13:15→17:45)
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
[2023-03-21] MEDS: potassium chloride ER 20 mEq Tablet 40 MEQ PO (16:29)
[2023-03-21 17:18] LABS: Glucose Point of Care 157 mg/dL (70-110)
[2023-03-21 20:27] LABS: Glucose Point of Care 201 mg/dL (70-110)
[2023-03-21] MEDS: pantoprazole 40 mg SDV IVP (21:04)
[2023-03-21] MEDS: insulin glargine 100 units/1 mL 10 UNIT SUBCUT (21:04)
--- NOTE | 2023-03-21 23:49 | PC.NURSE ---
Unable to measure accurate urinary output. Multiple linen changes provided during shift.
[2023-03-22] VITALS (12 sets, daily range): BP systolic 112–146; BP diastolic 54–73; PULSE 60–96; RESP 13–18; TEMP 36.4–37.1; O2SAT 93–98
[2023-03-22] MEDS: artificial tears Op Soln 15 mL Btl 1 DROP EYE-RIGHT (02:09)
[2023-03-22] MEDS: oxyCODONE 5 mg IR Tab/Cap PO ×2 (02:09→10:45)
[2023-03-22] MEDS: FUROsemide 10 mg/mL SDV 4mL 40 MG IVP ×2 (03:30→15:03)
[2023-03-22] MEDS: ipratropium-albuterol 3 mL Neb INHALATION ×4 (03:37→19:36)
[2023-03-22 06:10] LABS: Glucose Point of Care 89 mg/dL (70-110)
[2023-03-22 06:21] LABS: Basophils % 0.2 %; Eosinophils # 0.3 10^3/uL (0.0-0.8); Hematocrit 38.7 % (37-53); Lymphocytes # 0.6 10^3/uL (0.8-4.8); Lymphocytes % 7.8 %; Mean Corpuscular HGB Conc 27.9 g/dL (30-55); Mean Corpuscular Hemoglobin 22.2 pg (27-33); Mean Corpuscular Volume 79.6 fl (82-101); Mean Platelet Volume 10.8 fL (7.4-10.4); Monocytes # 0.9 10^3/uL (0.2-0.9); Monocytes % 11.2 %; Neutrophils % 76.5 %; Nucleated Red Blood Cells % 0 %; Platelet Count 120 10^3/cmm (157-399); Red Blood Count 4.86 10^6/uL (3.85-5.65); White Blood Count 8.24 10^3/uL (3.29-11.43)
[2023-03-22 07:09] LABS: Alanine Aminotransferase 25 U/L (0-41); Albumin Level 3.4 g/dL (3.5-5.2); Alkaline Phosphatase 124 U/L (40-130); Blood Urea Nitrogen 17 mg/dL (8-23); Calcium 8.5 mg/dL (8.5-10.5); Carbon Dioxide 26 mmol/L (22-29); Chloride 103 mmol/L (98-107); Globulin 2.4 g/dL (1.3-4.6); Glomerular Filtration Rate 134.8 mL/min (90-130); Glucose 83 mg/dL (65-115); Magnesium 2.2 mg/dL (1.7-2.3); Osmolality Calculated 293 mOsm/kg (285-295); Phosphorus 2.2 mg/dL (2.5-4.5); Sodium 141 mmol/L (136-145); Total Bilirubin 2.9 mg/dL (0.15-1.2); Total Protein 5.8 g/dL (6.6-8.7)
[2023-03-22 07:10] LABS: Aspartate Amino Transferase 29 U/L (0-40)
[2023-03-22] MEDS: budesonide 0.5 mg/2 mL Neb INHALATION ×2 (08:14→19:36)
[2023-03-22] MEDS: potassium chloride ER 20 mEq Tablet 40 MEQ PO (10:42)
[2023-03-22] MEDS: cholecalciferol (vitamin D3) 1,000 unit Tablet 2000 UNIT PO (10:42)
[2023-03-22] MEDS: allopurinol 100 mg Tablet PO ×2 (10:42→21:02)
[2023-03-22] MEDS: nicotine 21 mg Patch 1 PATCH TRANSDERMA (10:42)
[2023-03-22] MEDS: folic acid 1 mg Tablet PO (10:43)
[2023-03-22] MEDS: pregabalin 100 mg Capsule 300 MG PO ×2 (10:43→21:02)
[2023-03-22] MEDS: lactulose oral liq 20 gm/30 mL UDC PO ×2 (10:43→21:02)
[2023-03-22] MEDS: midodrine 5 mg TABLET PO ×3 (10:43→21:02)
[2023-03-22] MEDS: multivitamin therapeutic Tablet 1 TAB PO (10:43)
[2023-03-22 11:33] LABS: Glucose Point of Care 94 mg/dL (70-110)
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
[2023-03-22 16:35] LABS: Glucose Point of Care 126 mg/dL (70-110)
[2023-03-22 20:21] LABS: Glucose Point of Care 164 mg/dL (70-110)
[2023-03-22] MEDS: oxyCODONE 5 mg IR Tab/Cap 7.5 MG PO (21:02)
[2023-03-22] MEDS: pantoprazole 40 mg SDV IVP (21:02)
[2023-03-22] MEDS: insulin glargine 100 units/1 mL 10 UNIT SUBCUT (21:03)
[2023-03-23] VITALS (17 sets, daily range): BP systolic 114–143; BP diastolic 55–76; PULSE 62–85; RESP 16–19; TEMP 36.3–37; O2SAT 90–95
[2023-03-23] MEDS: ipratropium-albuterol 3 mL Neb INHALATION ×7 (00:16→23:58)
[2023-03-23] MEDS: oxyCODONE 5 mg IR Tab/Cap 7.5 MG PO ×4 (04:05→22:38)
[2023-03-23 06:29] LABS: Basophils % 0.1 %; Eosinophils # 0.2 10^3/uL (0.0-0.8); Eosinophils % 2.3 %; Hematocrit 37.7 % (37-53); Lymphocytes # 0.7 10^3/uL (0.8-4.8); Lymphocytes % 7.5 %; Mean Corpuscular HGB Conc 28.1 g/dL (30-55); Mean Corpuscular Hemoglobin 22.1 pg (27-33); Mean Corpuscular Volume 78.7 fl (82-101); Mean Platelet Volume 10.1 fL (7.4-10.4); Monocytes % 10.7 %; Neutrophils # 7.56 10^3/uL (1.8-7.7); Neutrophils % 78.5 %; Nucleated Red Blood Cells % 0 %; Platelet Count 123 10^3/cmm (157-399); Red Blood Count 4.79 10^6/uL (3.85-5.65); Red Cell Distribution Width 23.5 % (12.1-15.1); White Blood Count 9.63 10^3/uL (3.29-11.43)
[2023-03-23 06:35] LABS: Glucose Point of Care 70 mg/dL (70-110)
[2023-03-23 07:13] LABS: Alanine Aminotransferase 24 U/L (0-41); Albumin Level 3.4 g/dL (3.5-5.2); Alkaline Phosphatase 137 U/L (40-130); Anion Gap 12.6 (5-19); Aspartate Amino Transferase 24 U/L (0-40); Blood Urea Nitrogen 14 mg/dL (8-23); Calcium 8.7 mg/dL (8.5-10.5); Carbon Dioxide 28 mmol/L (22-29); Chloride 100 mmol/L (98-107); Globulin 2.5 g/dL (1.3-4.6); Glomerular Filtration Rate 134.8 mL/min (90-130); Glucose 69 mg/dL (65-115); Magnesium 2.2 mg/dL (1.7-2.3); Osmolality Calculated 283 mOsm/kg (285-295); Phosphorus 2.2 mg/dL (2.5-4.5); Potassium 3.6 mmol/L (3.5-5.1); Sodium 137 mmol/L (136-145); Total Bilirubin 3.5 mg/dL (0.15-1.2); Total Protein 5.9 g/dL (6.6-8.7)
[2023-03-23] MEDS: budesonide 0.5 mg/2 mL Neb INHALATION ×2 (07:50→19:54)
[2023-03-23] MEDS: multivitamin therapeutic Tablet 1 TAB PO (10:09)
[2023-03-23] MEDS: aspirin 81 mg EC Tablet PO (10:09)
[2023-03-23] MEDS: bumetanide 1 mg Tablet PO ×2 (10:09→21:34)
[2023-03-23] MEDS: potassium chloride ER 20 mEq Tablet PO ×2 (10:09→21:33)
[2023-03-23] MEDS: cholecalciferol (vitamin D3) 1,000 unit Tablet 2000 UNIT PO (10:10)
[2023-03-23] MEDS: midodrine 5 mg TABLET PO ×2 (10:10→21:34)
[2023-03-23] MEDS: atorvastatin 40 mg Tablet 80 MG PO (10:10)
[2023-03-23] MEDS: folic acid 1 mg Tablet PO (10:10)
[2023-03-23] MEDS: allopurinol 100 mg Tablet PO ×2 (10:10→17:26)
[2023-03-23] MEDS: pregabalin 100 mg Capsule 300 MG PO ×2 (10:11→21:33)
[2023-03-23] MEDS: ferrous gluconate 324 mg Tablet PO (10:13)
[2023-03-23] MEDS: metOLazone 5 MG Tablet PO (10:14)
[2023-03-23] MEDS: spironolactone 25 mg Tablet 12.5 MG PO (10:27)
[2023-03-23] MEDS: lactulose oral liq 20 gm/30 mL UDC PO (10:28)
[2023-03-23] MEDS: roflumilast 500 mcg Tablet PO (10:28)
[2023-03-23 11:03] LABS: Vitamin B1(Thiamin) Plas/Ser <6 nmol/L (8-30)
--- NOTE | 2023-03-23 11:04 | PC.SOCIAL ---
IMM Updated Updated pt on IMM. No questions voiced. Provided pt a copy. Initialed, dated, & timed copy in chart.
[2023-03-23 11:35] LABS: Glucose Point of Care 87 mg/dL (70-110)
[2023-03-23 11:53] LABS: INR 1.43 (0.8-1.2)
[2023-03-23] MEDS: guaiFENesin 600 mg Tablet PO ×2 (12:30→22:38)
[2023-03-23 14:56] LABS: Adenovirus Not Detected (NOT DETECT); Chlamydia Pneumoniae Not Detected (NOT DETECT); Coronavirus 229E,HKU1,NL63,OC4 Not Detected (NOT DETECT); Human Metapneumovirus Not Detected (NOT DETECT); Human Rhinovirus/Enterovirus Not Detected (NOT DETECT); Influenza A Not Detected (NOT DETECT); Influenza A H1 Not Detected (NOT DETECT); Influenza A H1-2009 Not Detected (NOT DETECT); Influenza A H3 Not Detected (NOT DETECT); Influenza B Not Detected (NOT DETECT); Mycoplasma Pneumoniae Not Detected (NOT DETECT); Parainfluenza Virus Type 1 Not Detected (NOT DETECT); Parainfluenza Virus Type 2 Not Detected (NOT DETECT); Parainfluenza Virus Type 3 Not Detected (NOT DETECT); Parainfluenza Virus Type 4 Not Detected (NOT DETECT); Respiratory Syncytial Virus A Not Detected (NOT DETECT); Respiratory Syncytial Virus B Not Detected (NOT DETECT); SARS-COV-2 Not Detected (NOT DETECT)
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
[2023-03-23 16:56] LABS: Glucose Point of Care 171 mg/dL (70-110)
[2023-03-23] MEDS: insulin lispro 100 unit/1 mL SUBCUT (17:25)
[2023-03-23] MEDS: enoxaparin 40 mg/0.4 mL Syringe SUBCUT (17:38)
[2023-03-23 20:28] LABS: Glucose Point of Care 176 mg/dL (70-110)
[2023-03-23] MEDS: pantoprazole 40 mg SDV IVP (21:33)
[2023-03-23] MEDS: prazosin 1 mg Capsule PO (21:33)
[2023-03-23] MEDS: insulin glargine 100 units/1 mL 10 UNIT SUBCUT (21:34)
--- NOTE | 2023-03-23 22:15 | PC.NURSE ---
unable to collect urine output pt has had bed changes
[2023-03-24] VITALS (9 sets, daily range): BP systolic 110–130; BP diastolic 60–76; PULSE 65–78; RESP 16–19; TEMP 36.8–37; O2SAT 91–98
[2023-03-24] MEDS: ipratropium-albuterol 3 mL Neb INHALATION ×2 (03:50→07:29)
[2023-03-24 06:27] LABS: Basophils % 0.1 %; Eosinophils # 0.2 10^3/uL (0.0-0.8); Eosinophils % 2.2 %; Hematocrit 33.3 % (37-53); Lymphocytes # 0.6 10^3/uL (0.8-4.8); Lymphocytes % 7.7 %; Mean Corpuscular Hemoglobin 22.8 pg (27-33); Mean Corpuscular Volume 75.9 fl (82-101); Mean Platelet Volume 11.2 fL (7.4-10.4); Monocytes # 0.6 10^3/uL (0.2-0.9); Monocytes % 8.4 %; Neutrophils # 5.91 10^3/uL (1.8-7.7); Neutrophils % 81.1 %; Nucleated Red Blood Cells % 0 %; Platelet Count 103 10^3/cmm (157-399); Red Blood Count 4.39 10^6/uL (3.85-5.65); White Blood Count 7.29 10^3/uL (3.29-11.43)
[2023-03-24 06:28] LABS: Glucose Point of Care 89 mg/dL (70-110)
[2023-03-24 06:36] LABS: INR 1.38 (0.8-1.2)
[2023-03-24 06:46] LABS: Alanine Aminotransferase 20 U/L (0-41); Albumin Level 3.3 g/dL (3.5-5.2); Alkaline Phosphatase 135 U/L (40-130); Anion Gap 11.9 (5-19); Aspartate Amino Transferase 24 U/L (0-40); Blood Urea Nitrogen 15 mg/dL (8-23); Calcium 9.1 mg/dL (8.5-10.5); Carbon Dioxide 33 mmol/L (22-29); Chloride 96 mmol/L (98-107); Globulin 2.3 g/dL (1.3-4.6); Glomerular Filtration Rate 166.4 mL/min (90-130); Glucose 92 mg/dL (65-115); Magnesium 1.8 mg/dL (1.7-2.3); Osmolality Calculated 286 mOsm/kg (285-295); Phosphorus 2.8 mg/dL (2.5-4.5); Sodium 138 mmol/L (136-145); Total Bilirubin 3.3 mg/dL (0.15-1.2); Total Protein 5.6 g/dL (6.6-8.7)
[2023-03-24 06:49] LABS: Potassium 2.9 mmol/L (3.5-5.1)
[2023-03-24] MEDS: budesonide 0.5 mg/2 mL Neb INHALATION (07:29)
[2023-03-24] MEDS: allopurinol 100 mg Tablet PO (09:36)
[2023-03-24] MEDS: midodrine 5 mg TABLET PO (09:36)
[2023-03-24] MEDS: roflumilast 500 mcg Tablet PO (09:36)
[2023-03-24] MEDS: cholecalciferol (vitamin D3) 1,000 unit Tablet 2000 UNIT PO (09:36)
[2023-03-24] MEDS: bumetanide 1 mg Tablet PO (09:36)
[2023-03-24] MEDS: multivitamin therapeutic Tablet 1 TAB PO (09:37)
[2023-03-24] MEDS: spironolactone 25 mg Tablet 12.5 MG PO (09:37)
[2023-03-24] MEDS: pregabalin 100 mg Capsule 300 MG PO (09:37)
[2023-03-24] MEDS: potassium chloride ER 20 mEq Tablet 40 MEQ PO (09:38)
[2023-03-24] MEDS: thiamine 100 mg Tablet PO (09:38)
[2023-03-24] MEDS: aspirin 81 mg EC Tablet PO (09:38)
[2023-03-24] MEDS: atorvastatin 40 mg Tablet 80 MG PO (09:38)
[2023-03-24] MEDS: folic acid 1 mg Tablet PO (09:38)
[2023-03-24] MEDS: ferrous gluconate 324 mg Tablet PO (09:38)
[2023-03-24] MEDS: potassium chloride ER 20 mEq Tablet PO (09:39)
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
[2023-03-24] MEDS: oxyCODONE 5 mg IR Tab/Cap 7.5 MG PO (10:31)
== END 2023-03-24 11:19 | disposition skilled nursing facility (03) | DRG 551 ==
LOC: ER 17:08 → MEDSURG 17:55
PROVIDERS: Internal Medicine; Admitting Provider Family Medicine; Emergency Provider Family Medicine; PCP Nurse Practitioner; Visit Provider Family Medicine
DX: S32.031A Stable burst fracture of third lumbar vertebra, initial encounter for closed fracture (principal); G92.8 Other toxic encephalopathy; I50.23 Acute on chronic systolic (congestive) heart failure; S22.018A Other fracture of first thoracic vertebra, initial encounter for closed fracture; S22.028A Other fracture of second thoracic vertebra, initial encounter for closed fracture; S22.038A Other fracture of third thoracic vertebra, initial encounter for closed fracture; R04.2 Hemoptysis; E72.4 Disorders of ornithine metabolism; S37.39XA Other injury of urethra, initial encounter; N39.0 Urinary tract infection, site not specified; Q61.02 Congenital multiple renal cysts; V48.0XXA Car driver injured in noncollision transport accident in nontraffic accident, initial encounter; Z11.52 Encounter for screening for COVID-19; K70.31 Alcoholic cirrhosis of liver with ascites; F10.11 Alcohol abuse, in remission; J44.9 Chronic obstructive pulmonary disease, unspecified; Z99.81 Dependence on supplemental oxygen; I25.10 Atherosclerotic heart disease of native coronary artery without angina pectoris; Z95.1 Presence of aortocoronary bypass graft; E11.42 Type 2 diabetes mellitus with diabetic polyneuropathy; I48.91 Unspecified atrial fibrillation; N32.9 Bladder disorder, unspecified; T45.516A Underdosing of anticoagulants, initial encounter; Z91.128 Patient's intentional underdosing of medication regimen for other reason; E87.6 Hypokalemia; T42.6X6A Underdosing of other antiepileptic and sedative-hypnotic drugs, initial encounter; Y63.6 Underdosing and nonadministration of necessary drug, medicament or biological substance; X58.XXXA Exposure to other specified factors, initial encounter; Z89.411 Acquired absence of right great toe; E87.5 Hyperkalemia; I27.20 Pulmonary hypertension, unspecified; I34.0 Nonrheumatic mitral (valve) insufficiency; Z95.0 Presence of cardiac pacemaker; Z87.891 Personal history of nicotine dependence; R55 Syncope and collapse; Z79.82 Long term (current) use of aspirin
CPT/HCPCS: 36415; 36416; 36600; 51702; 62328; 70450; 70486; 71045; 71260; 72125; 72128; 72131; 73030; 73080; 73502; 73562; 74177; 80048; 80053; 80061; 80074; 80202; 80306; 80307; 81001; 82140; 82533; 82550; 82607; 82746; 82803; 82962; 82977; 83036; 83690; 83735; 83880; 84100; 84132; 84145; 84425; 84443; 84484; 85025; 85610; 85730; 86140; 86617; 86618; 86666; 86695; 86696; 86757; 87040; 87086; 87486; 87581; 87633; 87635; 87804; 92507; 92523; 92526; 92610; 93005; 93306; 93880; 94640; 94664; 96372; 96374; 97110; 97161; 97167; 97530; 97535; 97760; 99285; C9113; J0610; J0696; J1100; J1170; J1644; J1650; J1815; J1940; J1953; J2060; J2270; J2543; J3370; J3411; J3490; J7030; J7042; J7050; J7626; Q9967

== ENCOUNTER 2023-05-18 02:42 | Emergency (ER) | payer OTHER, SELFPAY ==
[2023-05-18 02:44] VITALS: BP 103/74; PULSE 70; RESP 20; TEMP 36.6; O2SAT 96
--- NOTE | 2023-05-18 02:56 | ED_ITS ---
HPI - General Adult 2 General: Chief complaint: Urogenital-Male Stated complaint: no urine pain Time Seen by Provider: 05/18/23 02:45 Source: patient Mode of arrival: ambulatory Limitations: no limitations History of Present Illness: 67-year-old male states that he has been having difficulty urinating over the last 12 hours states he is only able to dribble once had dysuria as well. States having some suprapubic pain he denies any fevers denies any vomiting or diarrhea denies any worsening proving factors. He has multiple medical history. Associated symptoms: Deny chest pain, dyspnea, headache(s), nausea, rash or vomiting Review of Systems 2 Const: Denies: fever(s), chills, body aches or change in appetite Eyes: Denies: eye discomfort ENMT: Denies: throat pain or dental pain Card: Denies: chest pain Resp: Denies: dyspnea GI: Reports: abdominal pain; Denies: nausea, vomiting or diarrhea : Reports: difficulty urinating and dysuria Musc: Denies: neck pain or back pain Skin/Breast: Denies: rash Neuro: Denies: headache(s) PFSH ED 2 PFSH: Medical History History of type 2 diabetes mellitus Cirrhosis of liver COPD (chronic obstructive pulmonary disease) Surgical History (Updated 03/11/23 @ 18:33 by Trevor Pearl MD) History of abdominal aortic aneurysm repair History of coronary artery bypass graft Family History (Updated 03/11/23 @ 18:34 by Trevor Pearl MD) Father CAD (coronary artery disease) Mother Ovarian cancer Social History Smoking and tobacco/nicotine status: former use of tobacco/nicotine Alcohol intake: former Substance/Drug Use: never Physical Exam 2 Const: COMMON NORMALS: no acute distress, patient oriented x3 and healthy appearing HENMT: COMMON NORMALS: normocephalic and atraumatic HEAD & SCALP: n ormocephalic and atraumatic Eye: COMMON NORMALS: Equal, round and reactive pupils present and EOMs intact bilaterally PUPIL: Yes Equal, round and reactive pupils present Neck/C-Spine: COMMON NORMALS: full ROM and supple Chest: COMMONS NORMALS: normal inspection of the chest Resp: COMMON NORMALS: normal respiratory effort Cardio: COMMON NORMALS: regular rate, regular rhythm and No murmurs present (Cardio) RATE: regular rate RHYTHM: regular rhythm GI: COMMON NORMALS: Normal to inspection, nondistended, normoactive bowel sounds present, Soft to palpation, non-tender and no masses PALPATION: Yes Soft to palpation Extremity: COMMON NORMALS: normal to inspection and full ROM Neuro: COMMON NORMALS: patient oriented x3, moves all extremities and no focal motor deficits Psych: COMMON NORMALS: mental status grossly normal, Normal thought process present and cooperative THOUGHT PROCESS: Normal thought process present Skin: COMMON NORMALS: no rashes or lesions noted and no wounds GENERAL SKIN EXAM: no rashes or lesions noted Course 2 Vital Signs: Vital signs: Vital Signs Temperature 97.9 F 05/18/23 02:44 Pulse Rate 70 05/18/23 02:44 Respiratory Rate 20 H 05/18/23 02:44 Blood Pressure 103/74 05/18/23 02:44 Pulse Oximetry 96 05/18/23 02:44 Oxygen Delivery Me thod Nasal Cannula 05/18/23 02:44 Oxygen Flow Rate 2 05/18/23 02:44 [facility] - General Adult Medical Decision Making Patient presents here with dysuria he does not have urinary retention did place a Curtis had only 20 mL out he is not in kidney failure blood work here is normal we will give antibiotics he is to follow-up with urology with that mass return if worsening. Medical Records I reviewed the patient's medical records. Lab Data I reviewed the patient's lab results. 05/18/23 02:56 05/18/23 02:56 Laboratory Results WBC 5.12 10^3/uL (3.29-11.43) 05/18/23 02:56 RBC 4.30 10^6/uL (3.85-5.65) 05/18/23 02:56 Hgb 9.40 g/dL (11.27-16.99) L 05/18/23 02:56 Hct 32.1 % (37-53) L 05/18/23 02:56 MCV 74.7 fl (82-101) L 05/18/23 02:56 MCH 21.9 pg (27-33) L 05/18/23 02:56 MCHC 29.3 g/dL (30-55) L 05/18/23 02:56 RDW 22.7 % (12.1-15.1) H 05/18/23 02:56 Plt Count 120 10^3/cmm (157-399) L 05/18/23 02:56 MPV 9.4 fL (7.4-10.4) 05/18/23 02:56 Neut % (Auto) 61.1 % 05/18/23 02:56 Lymph % (Auto) 15.0 % 05/18/23 02:56 [place] % (Auto) 12.7 % 05/18/23 02:56 Eos % (Auto) 9.8 % 05/18/23 02:56 Baso % (Auto) 1.2 % 05/18/23 02:56 Neut # (Auto) 3.13 10^3/uL (1.8-7.7) 05/18/23 02:56 Lymph # (Auto) 0.8 10^3/uL (0.8-4.8) 05/18/23 02:56 [place] # (Auto) 0.7 10^3/uL (0.2-0.9) 05/18/23 02:56 Eos # (Auto) 0.5 10^3/uL (0.0-0.8) 05/18/23 02:56 Baso # (Auto) 0.1 10^3/uL (0.0-0.1) 05/18/23 02:56 Nucleated RBC % (auto) 0 % 05/18/23 02:56 Nucleated RBCs # 0.0 /100WBC 05/18/23 02:56 Sodium 133 mmol/L (136-145) L 05/18/23 02:56 Potassium 4.2 mmol/L (3.5-5.1) 05/18/23 02:56 Chloride 97 mmol/L (98-107) L 05/18/23 02:56 Carbon Dioxide 29 mmol/L (22-29) 05/18/23 02:56 Anion Gap 11.2 (5-19) 05/18/23 02:56 BUN 14 mg/dL (8-23) 05/18/23 02:56 Creatinine 0.9 mg/dL (0.7-1.2) 05/18/23 02:56 GFR Calculation 84.4 mL/min (90-130) L 05/18/23 02:56 Glucose 99 mg/dL (65-115) 05/18/23 02:56 Calculated Osmolality 277 mOsm/kg (285-295) L 05/18/23 02:56 Calcium 9.5 mg/dL (8.5-10.5) 05/18/23 02:56 Urine Color Dark yellow (Yellow) 05/18/23 02:58 Urine Appearance Hazy (CLEAR) A 05/18/23 02:58 Urine pH 5 (5-7) 05/18/23 02:58 Ur Specific Goff 1.030 (1.005-1.030) 05/18/23 02:58 Urine Protein 3+ (Negative) H 05/18/23 02:58 Urine Glucose (UA) Norm (Normal) 05/18/23 02:58 Urine Ketones Negative (Negative) 05/18/23 02:58 Urine Blood 3+ (Negative) H 05/18/23 02:58 Urine Nitrate Negative (Negative) 05/18/23 02:58 Urine Bilirubin Neg (Negative) 05/18/23 02:58 Urine Urobilinogen Neg mg/dL (Negative) 05/18/23 02:58 Ur Leukocyte Esterase Trace (Negative) H 05/18/23 02:58 Urine RBC 40-50 /hpf (0-2) H 05/18/23 02:58 Urine WBC 15-25 /hpf (0-5) H 05/18/23 02:58 Ur Squamous Epith Cells 0-4 /hpf (0-5) H 05/18/23 02:58 Ur Transition Epith Cell 5-10 /hpf 05/18/23 02:58 Amorphous Sediment Not Reportable 05/18/23 02:58 Urine Bacteria 1+ /hpf (NONE) H 05/18/23 02:58 Urine Mucus 2+ /hpf 05/18/23 02:58 No radiology studies performed this visit Discharge Plan Discharge Patient Disposition: Home Clinical Impression: Urinary tract infection Qualifiers: Urinary tract infection type: site unspecified Hematuria presence: without hematuria Qualified Code(s): N39.0 - Urinary tract infection, site not specified Condition: Stable Prescriptions: New cephalexin 500 mg capsule 500 mg PO TID 7 Days Qty: 21 0RF cephalexin 500 mg capsule 500 mg PO TID 7 Days Qty: 21 0RF No Action (DME) Thumb Spika Splint See Rx Instructions .Route .MEDSUPPLY Qty: 1 0RF Rx Instructions: As directed (DME) Diabetic Shoes with 3 Pairs of Inserts See Rx Instructions .Route .MEDSUPPLY Qty: 1 0RF Rx Instructions: As directed by [facility] PATIENT Humalog U-100 Insulin 100 unit/mL Solution See Rx Instructions .ROUTE .COMPLEX Qty: 10 0RF Rx Instructions: 0 unit subcutaneously ;Inject, subcut, 3 times daily, after meals, based on sliding scale provided ipratropium-albuterol 0.5 mg-3 mg(2.5 mg base)/3 mL Solution For Nebulization 3 ml INHALATION QID PRN (Reason: Shortness Of Breath) Qty: 90 0RF midodrine 5 mg tablet 5 mg PO TID 30 Days Qty: 90 0RF Rx Instructions: FOR 3 DAYS pantoprazole 40 mg tablet,delayed release (DR/EC) 40 mg PO DAILY 30 Days Qty: 30 0RF pregabalin 300 mg Capsule 300 mg PO BID 30 Days Qty: 60 0RF metolazone 5 mg tablet 5 mg PO EVERY OTHER DAY 30 Days Qty: 15 0RF allopurinol 100 mg tablet 100 mg PO BID 30 Days Qty: 60 0RF spironolactone 25 mg Tablet 12.5 mg PO DAILY 30 Days Qty: 15 0RF bumetanide 1 mg tablet 1 mg PO BID 30 Days Qty: 60 0RF prazosin 2 mg Capsule 1 mg PO QPM 30 Days Qty: 15 0RF rosuvastatin 40 mg Tablet 40 mg PO DAILY 30 Days Qty: 30 0RF cholecalciferol (vitamin D3) 50 mcg (2,000 unit) capsule 50 mcg PO DAILY 30 Days Qty: 30 0RF roflumilast 500 mcg tablet 500 mcg PO DAILY 30 Days Qty: 30 0RF ferrous gluconate 324 mg (37.5 mg iron) Tablet 324 mg PO DAILY 30 Days Qty: 30 0RF Xarelto 20 mg Tablet 20 mg PO QPM 30 Days Qty: 30 0RF Rx Instructions: HOLD FOR 2 WEEKS, THEN RESUME BASED ON CLINICAL PROGRESS Probiotic 3 billion cell Capsule 3,000 mmu cells PO DAILY 30 Days Qty: 30 0RF potassium chloride 20 mEq tablet extended release See Rx Instructions .ROUTE .COMPLEX Qty: 90 0RF Rx Instructions: TAKE 1 TABLET IN THE MORNING, 1 TABLETS AT NOON, AND 1 TABLETS IN THE PM Asmanex HFA 200 mcg/actuation HFA aerosol inhaler 2 puff inhalation BID Qty: 13 0RF Spiriva Respimat 1.25 mcg/actuation Mist 2 puff INHALATION DAILY Qty: 4 0RF aspirin 81 mg Capsule 81 mg PO DAILY 30 Days Qty: 30 0RF Discharge Orders: Discharge ED (Routine); Ordered 05/18/23 Ordered By: Edith Samayoa Referrals: Carmen Osman FNP [Primary Care Provider] - Discharge Diet: Advance as tolerated Discharge Activity: Resume usual activity Patient Instructions: Urinary Tract Infection in Men (ED) Coding Level of Care Code ED Clinical Trials Manager for Sylwia Bryson
[2023-05-18 03:09] LABS: Basophils # 0.1 10^3/uL (0.0-0.1); Basophils % 1.2 %; Eosinophils # 0.5 10^3/uL (0.0-0.8); Eosinophils % 9.8 %; Hematocrit 32.1 % (37-53); Lymphocytes # 0.8 10^3/uL (0.8-4.8); Mean Corpuscular HGB Conc 29.3 g/dL (30-55); Mean Corpuscular Hemoglobin 21.9 pg (27-33); Mean Corpuscular Volume 74.7 fl (82-101); Mean Platelet Volume 9.4 fL (7.4-10.4); Monocytes # 0.7 10^3/uL (0.2-0.9); Monocytes % 12.7 %; Neutrophils # 3.13 10^3/uL (1.8-7.7); Neutrophils % 61.1 %; Nucleated Red Blood Cells % 0 %; Platelet Count 120 10^3/cmm (157-399); Red Cell Distribution Width 22.7 % (12.1-15.1); White Blood Count 5.12 10^3/uL (3.29-11.43)
[2023-05-18 03:17] LABS: Add Urine Microscopic? YES; Bilirubin Urine Neg (Negative); Blood Urine 3+ (Negative); Glucose Urine UA Norm (Normal); Ketones Urine Negative (Negative); Leukocyte Esterase Urine Trace (Negative); Nitrate Urine Negative (Negative); Protein Urine 3+ (Negative); Urine Appearance Hazy (CLEAR); Urine Color Dark Yellow (Yellow); Urobilinogen Urine Neg (Negative); pH Urine 5 (5-7)
[2023-05-18 03:19] LABS: Add Urine Culture? Yes; Bacteria Urine 1+ /hpf; Mucus Urine 2+ /hpf; RBC Urine 40-50 /hpf (0-2); Squamous Epithelial Cell Urine 0-4 /hpf (0-5); WBC Urine 15-25 /hpf (0-5)
[2023-05-18 03:19] LABS: Anion Gap 11.2 (5-19); Blood Urea Nitrogen 14 mg/dL (8-23); Calcium 9.5 mg/dL (8.5-10.5); Carbon Dioxide 29 mmol/L (22-29); Chloride 97 mmol/L (98-107); Glomerular Filtration Rate 84.4 mL/min (90-130); Glucose 99 mg/dL (65-115); Osmolality Calculated 277 mOsm/kg (285-295); Potassium 4.2 mmol/L (3.5-5.1); Sodium 133 mmol/L (136-145)
[2023-05-18] MEDS: cefTRIAXone 1,000 MG in sodium chloride 0.9% (plus) 50 ML 100 MG IV (03:33)
[2023-05-18 03:38] VITALS: BP 117/71; PULSE 69; RESP 16; O2SAT 98
--- NOTE | 2023-05-26 09:06 | DCPLANNER ---
I spoke to patient on 05/26/23 at 0850 to see where he would like his urology referral sent to. [facility] informed [facility] and [facility] [place], [place]. He said that if he is unable to get this appointment with the [facility] in [place] then he wants the referral sent to [facility]
== END 2023-05-18 04:03 | disposition home or self-care (01) ==
PROVIDERS: Emergency Provider Emergency Medicine; PCP Nurse Practitioner
DX: N39.0 Urinary tract infection, site not specified (principal); Z79.82 Long term (current) use of aspirin; Z79.4 Long term (current) use of insulin; E11.9 Type 2 diabetes mellitus without complications; J44.9 Chronic obstructive pulmonary disease, unspecified; Z95.1 Presence of aortocoronary bypass graft; Z87.891 Personal history of nicotine dependence
CPT/HCPCS: 51702; 80048; 81001; 85025; 87086; 96374; 99284; J0696

== ENCOUNTER 2023-05-23 17:39 | Emergency (ER) | payer OTHER, SELFPAY ==
--- NOTE | 2023-05-23 17:41 | XRR_ITS ---
PROCEDURE INFORMATION: Exam: XR Chest Exam date and time: 05/23/2023 6:38 PM Age: 67 years old Clinical indication: Shortness of breath; Prior surgery; Surgery date: 6+ months; Surgery type: Aaa, cabg; Additional info: SOB, bilateral leg swelling TECHNIQUE: Imaging protocol: Radiologic exam of the chest. Views: 1 view. COMPARISON: CR XR chest 1V portable [id number] 03/21/2023 6:03 AM FINDINGS: Tubes, catheters and devices: There is a dual-lead cardiac pacer via left subclavian approach. Findings are stable. Lungs: Resolution of airspace disease in the right lung. Interval development of right middle lobe and left lingular atelectasis versus pneumonia. Fullness in the pulmonary vasculature suggesting volume overload in the lungs. Pleural spaces: Small bilateral pleural effusions. No pneumothorax. Heart/Mediastinum: Stable marked enlargement of the cardiac silhouette. Mediastinal contours are unremarkable. Vasculature: Stable vascular calcifications in the aorta. Bones/joints: Poststernotomy changes in the chest. Degenerative changes in the spine and shoulders. Multiple old right rib fractures. Patient has had previous fusion in the lower cervical spine. XR/XR chest 1V portable [id number] IMPRESSION: 1. Interval development of right middle lobe and left lingular atelectasis versus pneumonia. Recommend followup chest imaging to insure resolution of these findings. 2. Fullness in the pulmonary vasculature suggesting volume overload in the lungs. 3. Resolution of airspace disease in the right lung. 4. Small bilateral pleural effusions. 5. Incidental/nonacute findings are listed in the report.
[2023-05-23 17:51] VITALS: BP 117/68; PULSE 68; RESP 16; TEMP 36.3; O2SAT 95; BMI 27.3
[2023-05-23 18:34] LABS: Basophils # 0.1 10^3/uL (0.0-0.1); Basophils % 1.8 %; Eosinophils # 0.4 10^3/uL (0.0-0.8); Hematocrit 31.7 % (37-53); Lymphocytes # 0.7 10^3/uL (0.8-4.8); Lymphocytes % 14.4 %; Mean Corpuscular Volume 75.7 fl (82-101); Monocytes # 0.5 10^3/uL (0.2-0.9); Monocytes % 10.3 %; Neutrophils # 3.39 10^3/uL (1.8-7.7); Neutrophils % 66.1 %; Nucleated Red Blood Cells % 0 %; Platelet Count 154 10^3/cmm (157-399); Red Blood Count 4.19 10^6/uL (3.85-5.65); White Blood Count 5.13 10^3/uL (3.29-11.43)
--- NOTE | 2023-05-23 18:51 | ECG_ITS ---
[facility] Test Date: 2023-05-23 Pat Name: Arnie Coombs Department: Room: Gender: Male Counseling Services Manager: : [id number] Requested By: Nomi Simpson Order Number: [id number] Art MD: Veto Navas M.D. Measurements Intervals Wolf Rate: 66 P: 0 RI: 0 QRS: 262 QRSD: 126 T: 75 QT: 430 QTc: 451 Interpretive Statements ELECTRONIC VENTRICULAR PACEMAKER Compared to ECG 03/15/2023 01:26:36 No significant changes Electronically Signed On 05-24-2023 4:24:09 PAINT ROLLER WINDER by Veto Navas M.D. [email or web address] ([id number]
--- NOTE | 2023-05-23 18:51 | W.ED.EXTPRO ---
HPI - Extremity Problem General: Chief complaint: Extremity Injury, Lower Stated complaint: sob, swollen legs Time Seen by Provider: 05/23/23 18:36 Source: patient Mode of arrival: ambulatory Limitations: no limitations History of Present Illness: 67-year-old male with a history of CHF has had chronic lower extremity edema he is on Bumex at home states he had some increased swelling and shortness of breath over the last 4 to 5 days. Denies any pain denies any cough denies any fevers. Had no vomiting or diarrhea. Associated symptoms: Deny chest pain, fever(s) or rash Review of Systems Const: Denies: fever(s), chills, body aches or change in appetite ENMT: Denies: throat pain or dental pain Card: Denies: chest pain Resp: Denies: dyspnea GI: Denies: abdominal pain, nausea, vomiting or diarrhea Musc: Reports: extremity swelling; Denies: neck pain or back pain Skin/Breast: Denies: rash Neuro: Denies: headache(s) PFSH ED PFSH: Medical History History of type 2 diabetes mellitus Cirrhosis of liver COPD (chronic obstructive pulmonary disease) Surgical History History of abdominal aortic aneurysm repair History of coronary artery bypass graft Family History (Updated 03/11/23 @ 18:34 by Trevor Pearl MD) Father CAD (coronary artery disease) Mother Ovarian cancer Social History Smoking and tobacco/nicotine status: former use of tobacco/nicotine Alcohol intake: former Substance/Drug Use: never Physical Exam Const: COMMON NORMALS: no acute distress, patient oriented x3 and healthy appearing HENMT: COMMON NORMALS: normocephalic and atraumatic HEAD & SCALP: normocephalic and atraumatic Eye: COMMON NORMALS: Equal, round and reactive pupils present and EOMs intact bilaterally PUPIL: Yes Equal, round and reactive pupils present Neck/C-Spine: COMMON NORMALS: full ROM and supple Chest: COMMONS NORMALS: normal inspection of the chest Resp: COMMON NORMALS: normal respiratory effort Cardio: COMMON NORMALS: regular rate, regular rhythm and No murmurs present (Cardio) RATE: regular rate RHYTHM: regular rhythm GI: COMMON NORMALS: non-tender INSPECTION: Yes normal to inspection Extremity: COMMON NORMALS: full ROM NARRATIVE EXTREMITY EXAM: 2+edema to LE Neuro: COMMON NORMALS: patient oriented x3, moves all extremities and no focal motor deficits Psych: COMMON NORMALS: mental status grossly normal, Normal thought process present and cooperative THOUGHT PROCESS: Normal thought process present Skin: COMMON NORMALS: no rashes or lesions noted and no wounds GENERAL SKIN EXAM: no rashes or lesions noted Course Vital Signs: Vital signs: Vital Signs Temperature 97.3 F L 05/23/23 17:51 Pulse Rate 69 05/23/23 21:33 Respiratory Rate 20 H 05/23/23 21:33 Blood Pressure 96/45 05/23/23 21:33 Pulse Oximetry 97 05/23/23 21:33 Oxygen Delivery Me thod Nasal Cannula 05/23/23 20:57 Oxygen Flow Rate 3 05/23/23 20:57 MDM - Extremity (Nontraumatic) Medical Decision Making Patient presents here with lower extremity edema likely from CHF BNP is actually improved he is not requiring any increased oxygen did give him a dose of Lasix here he has no fever no signs of pneumonia he is continue his Bumex follow-up with PCP and return if worsening he understands agrees to plan. Medical Records I reviewed the patient's medical records. Lab Data I reviewed the patient's lab results. 05/23/23 18:17 05/23/23 18:17 Radiology Impressions Chest X-Ray 05/23/23 17:41 IMPRESSION: 1. Interval development of right middle lobe and left lingular atelectasis versus pneumonia. Recommend followup chest imaging to insure resolution of these findings. 2. Fullness in the pulmonary vasculature suggesting volume overload in the lungs. 3. Resolution of airspace disease in the right lung. 4. Small bilateral pleural effusions. 5. Incidental/nonacute findings are listed in the report. Laboratory Results WBC 5.13 10^3/uL (3.29-11.43) 05/23/23 18:17 RBC 4.19 10^6/uL (3.85-5.65) 05/23/23 18:17 Hgb 9.20 g/dL (11.27-16.99) L 05/23/23 18:17 Hct 31.7 % (37-53) L 05/23/23 18:17 MCV 75.7 fl (82-101) L 05/23/23 18:17 MCH 22.0 pg (27-33) L 05/23/23 18:17 MCHC 29.0 g/dL (30-55) L 05/23/23 18:17 RDW 23.0 % (12.1-15.1) H 05/23/23 18:17 Plt Count 154 10^3/cmm (157-399) L 05/23/23 18:17 MPV 10.0 fL (7.4-10.4) 05/23/23 18:17 Neut % (Auto) 66.1 % 05/23/23 18:17 Lymph % (Auto) 14.4 % 05/23/23 18:17 Leslie % (Auto) 10.3 % 05/23/23 18:17 Eos % (Auto) 7.0 % 05/23/23 18:17 Baso % (Auto) 1.8 % 05/23/23 18:17 Neut # (Auto) 3.39 10^3/uL (1.8-7.7) 05/23/23 18:17 Lymph # (Auto) 0.7 10^3/uL (0.8-4.8) L 05/23/23 18:17 Leslie # (Auto) 0.5 10^3/uL (0.2-0.9) 05/23/23 18:17 Eos # (Auto) 0.4 10^3/uL (0.0-0.8) 05/23/23 18:17 Baso # (Auto) 0.1 10^3/uL (0.0-0.1) 05/23/23 18:17 Nucleated RBC % (auto) 0 % 05/23/23 18:17 Nucleated RBCs # 0.0 /100WBC 05/23/23 18:17 Sodium 131 mmol/L (136-145) L 05/23/23 18:17 Potassium 3.6 mmol/L (3.5-5.1) 05/23/23 18:17 Chloride 94 mmol/L (98-107) L 05/23/23 18:17 Carbon Dioxide 30 mmol/L (22-29) H 05/23/23 18:17 Anion Gap 10.6 (5-19) 05/23/23 18:17 BUN 12 mg/dL (8-23) 05/23/23 18:17 Creatinine 0.9 mg/dL (0.7-1.2) 05/23/23 18:17 GFR Calculation 84.4 mL/min (90-130) L 05/23/23 18:17 Glucose 109 mg/dL (65-115) 05/23/23 18:17 Calculated Osmolality 272 mOsm/kg (285-295) L 05/23/23 18:17 Calcium 8.7 mg/dL (8.5-10.5) 05/23/23 18:17 Total Bilirubin 1.3 mg/dL (0.15-1.2) H 05/23/23 18:17 AST 22 U/L (0-40) 05/23/23 18:17 ALT 10 U/L (0-41) 05/23/23 18:17 Alkaline Phosphatase 142 U/L (40-130) H 05/23/23 18:17 Troponin T Baseline 38 ng/L (0-15) H 05/23/23 18:17 Troponin T 120 Minute 34.85 ng/L (0-15) H 05/23/23 20:22 Delta Troponin T -3.15 ABS# (0-10) L 05/23/23 20:22 NT-Pro-B Natriuret Pep 3222 pg/mL (0-125) H 05/23/23 18:17 Total Protein 7.6 g/dL (6.6-8.7) 05/23/23 18:17 Albumin 3.1 g/dL (3.5-5.2) L 05/23/23 18:17 Globulin 4.5 g/dL (1.3-4.6) 05/23/23 18:17 All radiology interpretation(s) finalized by discharge EKG Data EKG 1: I personally reviewed and interpreted this EKG as follows: EKG interpretation date: 05/23/23 EKG interpretation time: 18:51 Interpretation: paced hr [address] or twave abnormalities qrs 126 qtc 443 EKG 2: I personally reviewed and interpreted this EKG as follows: EKG interpretation date: 05/23/23 EKG interpretation time: 20:36 Interpretation: paced hr [address] elevation wrs 197 qtc 523 Discharge Plan Discharge Patient Disposition: Home Clinical Impression: Bilateral edema of lower extremity Condition: Stable Prescriptions: No Action (DME) Thumb Spika Splint See Rx Instructions .Route .MEDSUPPLY Qty: 1 0RF Rx Instructions: As directed (DME) Diabetic Shoes with 3 Pairs of Inserts See Rx Instructions .Route .MEDSUPPLY Qty: 1 0RF Rx Inst[facility]: [facility] ondansetron 4 mg tablet,disintegrating 4 mg translingual Q4H PRN (Reason: nausea) Qty: 5 0RF Rx Instructions: Dissolve 1 tablet under tongue every 4 hours PRN for nausea morphine concentrate 100 mg/5 mL (20 mg/mL) solution 20 mg sublingual DIRECTED PRN (Reason: Pain/SOB) 14 Days Qty: 30 0RF Rx Instructions: 0.25ml-1ml q1H PRN may increase to 0.5ml-1ml Q1H PRN bisacodyl 10 mg suppository 10 mg MN DAILY PRN (Reason: constipation) Qty: 5 0RF Rx Instructions: 1 suppository per rectum every day PRN for constipation. atropine 1 % drops 4 drp sublingual Q4H PRN (Reason: secretions) Qty: 5 0RF Rx Instructions: 4 drops SL q 4 hours PRN for terminal congestion/excessive secretions. lorazepam 2 mg/mL concentrate 2 mg sublingual Q4H PRN (Reason: Anxiety/Seizure) Qty: 30 0RF Rx Instructions: 0.25ml-1ml q4H PRN Anxiety/Seizure Start 0.25ml may increase to 0.5ml-1ml q4H Humalog U-100 Insulin 100 unit/mL Solution See Rx Instructions .ROUTE .COMPLEX Qty: 10 0RF Rx Instructions: 0 unit subcutaneously ;Inject, subcut, 3 times daily, after meals, based on sliding scale provided ipratropium-albuterol 0.5 mg-3 mg(2.5 mg base)/3 mL Solution For Nebulization 3 ml INHALATION QID PRN (Reason: Shortness Of Breath) Qty: 90 0RF midodrine 5 mg tablet 5 mg PO TID 30 Days Qty: 90 0RF Rx Instructions: FOR 3 DAYS pantoprazole 40 mg tablet,delayed release (DR/EC) 40 mg PO DAILY 30 Days Qty: 30 0RF pregabalin 300 mg Capsule 300 mg PO BID 30 Days Qty: 60 0RF metolazone 5 mg tablet 5 mg PO EVERY OTHER DAY 30 Days Qty: 15 0RF allopurinol 100 mg tablet 100 mg PO BID 30 Days Qty: 60 0RF spironolactone 25 mg Tablet 12.5 mg PO DAILY 30 Days Qty: 15 0RF bumetanide 1 mg tablet 1 mg PO BID 30 Days Qty: 60 0RF prazosin 2 mg Capsule 1 mg PO QPM 30 Days Qty: 15 0RF rosuvastatin 40 mg Tablet 40 mg PO DAILY 30 Days Qty: 30 0RF cholecalciferol (vitamin D3) 50 mcg (2,000 unit) capsule 50 mcg PO DAILY 30 Days Qty: 30 0RF roflumilast 500 mcg tablet 500 mcg PO DAILY 30 Days Qty: 30 0RF ferrous gluconate 324 mg (37.5 mg iron) Tablet 324 mg PO DAILY 30 Days Qty: 30 0RF Xarelto 20 mg Tablet 20 mg PO QPM 30 Days Qty: 30 0RF Rx Instructions: HOLD FOR 2 WEEKS, THEN RESUME BASED ON CLINICAL PROGRESS Probiotic 3 billion cell Capsule 3,000 mmu cells PO DAILY 30 Days Qty: 30 0RF potassium chloride 20 mEq tablet extended release See Rx Instructions .ROUTE .COMPLEX Qty: 90 0RF Rx Instructions: TAKE 1 TABLET IN THE MORNING, 1 TABLETS AT NOON, AND 1 TABLETS IN THE PM Asmanex HFA 200 mcg/actuation HFA aerosol inhaler 2 puff inhalation BID Qty: 13 0RF Spiriva Respimat 1.25 mcg/actuation Mist 2 puff INHALATION DAILY Qty: 4 0RF aspirin 81 mg Capsule 81 mg PO DAILY 30 Days Qty: 30 0RF cephalexin 500 mg capsule 500 mg PO TID 7 Days Qty: 21 0RF cephalexin 500 mg capsule 500 mg PO TID 7 Days Qty: 21 0RF Discharge Orders: Discharge ED (Routine); Ordered 05/23/23 Ordered By: Edith Samayoa Referrals: Carmen Osman, VINCE [Primary Care Provider] - Discharge Diet: Advance as tolerated Discharge Activity: Resume usual activity Patient Instructions: Edema (ED) Coding Level of Care Code ED College Archivist for Sylwia Bryson
[2023-05-23 18:59] LABS: Alanine Aminotransferase 10 U/L (0-41); Albumin Level 3.1 g/dL (3.5-5.2); Alkaline Phosphatase 142 U/L (40-130); Anion Gap 10.6 (5-19); Aspartate Amino Transferase 22 U/L (0-40); Blood Urea Nitrogen 12 mg/dL (8-23); Calcium 8.7 mg/dL (8.5-10.5); Carbon Dioxide 30 mmol/L (22-29); Chloride 94 mmol/L (98-107); Globulin 4.5 g/dL (1.3-4.6); Glomerular Filtration Rate 84.4 mL/min (90-130); Glucose 109 mg/dL (65-115); NT Pro B Type Natriuretic Pept 3222 pg/mL (0-125); Osmolality Calculated 272 mOsm/kg (285-295); Potassium 3.6 mmol/L (3.5-5.1); Sodium 131 mmol/L (136-145); Total Bilirubin 1.3 mg/dL (0.15-1.2); Total Protein 7.6 g/dL (6.6-8.7)
[2023-05-23] MEDS: FUROsemide 10 mg/mL SDV 10mL 80 MG IVP (18:59)
[2023-05-23 19:06] VITALS: BP 112/59; PULSE 69; RESP 18; O2SAT 98
[2023-05-23 19:16] LABS: Troponin(5th) Baseline 38 ng/L (0-15)
[2023-05-23 19:48] VITALS: BP 118/70; PULSE 68; RESP 20; O2SAT 95
[2023-05-23 20:26] VITALS: BP 109/59; PULSE 69; RESP 22; O2SAT 97
--- NOTE | 2023-05-23 20:36 | ECG_ITS ---
[facility] Test Date: 2023-05-23 Pat Name: Arnie Coombs Department: Room: Gender: Male Staff Development Coordinator: : [id number] Requested By: Nomi Simpson Order Number: [id number] Art MD: Veto Navas M.D. Measurements Intervals [place] Rate: 71 P: 0 [place]: 0 QRS: 267 QRSD: 197 T: 91 QT: 501 QTc: 546 Interpretive Statements ELECTRONIC VENTRICULAR PACEMAKER Compared to ECG 05/23/2023 18:51:31 No significant changes Electronically Signed On 05-24-2023 4:25:09 CIGAR SORTER by Veto Navas M.D. [email or web address] critical care [email or web address] [facility] systemMass [id number]
[2023-05-23 20:48] LABS: Troponin 5 2HR 34.85 ng/L (0-15)
[2023-05-23 20:49] LABS: Troponin 5 2HR Delta -3.15 ABS# (0-10)
[2023-05-23 20:57] VITALS: BP 102/48; PULSE 68; RESP 15; O2SAT 96
[2023-05-23 21:33] VITALS: BP 96/45; PULSE 69; RESP 20; O2SAT 97
== END 2023-05-23 21:34 | disposition home or self-care (01) ==
PROVIDERS: Internal Medicine; Emergency Provider Emergency Medicine; PCP Nurse Practitioner
DX: R60.0 Localized edema (principal); Z79.82 Long term (current) use of aspirin; Z79.4 Long term (current) use of insulin; E11.9 Type 2 diabetes mellitus without complications; J44.9 Chronic obstructive pulmonary disease, unspecified; Z95.1 Presence of aortocoronary bypass graft; Z87.891 Personal history of nicotine dependence
CPT/HCPCS: 36415; 71045; 80053; 83880; 84484; 85025; 93005; 96374; 99285; J1940

== ENCOUNTER → 2023-06-20 14:05 | Outpatient (BNVA) | payer OTHER, SELFPAY | PROVIDERS: PCP Nurse Practitioner; Visit Provider Podiatrist Foot & Ankle Surgery | DX: E11.42 Type 2 diabetes mellitus with diabetic polyneuropathy (principal); L60.3 Nail dystrophy; M25.871 Other specified joint disorders, right ankle and foot; M20.41 Other hammer toe(s) (acquired), right foot; M20.42 Other hammer toe(s) (acquired), left foot; Z79.4 Long term (current) use of insulin | CPT/HCPCS: 11721 ==